=== PATIENT | female | born 1950 ===

== ENCOUNTER 2017-01-03 20:28 | Inpatient (IN) | payer MEDICARE, OTHER ==
[2017-01-03 20:29] VITALS: BMI 33.6
[2017-01-03] MEDS ORDERED: Sodium Chloride 0.9% 1,000 ML IV STA (21:11)
[2017-01-03 21:59] LABS: BASO # 0.03 K/mm3 (0.0-2.0); BASO % 0.2 % (0.0-3.0); EOS # 0.1 (0.0-0.7); EOS % 1.1 % (1.5-5.0); GRAN # 9.86 (1.4-6.5); GRAN % 78.8 % (50.0-68.0); HEMOGLOBIN 13.2 gm/dL (12.0-16.0); LYMPH # 1.4 (1.2-3.4); LYMPH % 11.4 % (22.0-35.0); MEAN CELL VOLUME 86.5 fL (80.0-105.0); MEAN CORPUSCULAR HEMOGLOBIN 28.7 pg (25.0-35.0); MEAN CORPUSCULAR HGB CONC 33.2 g/dl (31.0-37.0); MEAN PLATELET VOLUME 10.6 fl (7.0-11.0); MONO # 1.1 (0.1-0.6); MONO % 8.5 % (1.0-6.0); PLATELET COUNT 216 10^3/uL (120.0-450.0); RED CELL DISTRIBUTION WIDTH 14.3 % (11.5-14.5); WHITE BLOOD COUNT 12.5 10^3/ul (4.5-11.0)
[2017-01-03 22:05] LABS: ALB/GLOB RATIO 1.2 (1.1-1.8); ALBUMIN 4.3 g/dL (3.0-4.8); ALT/SGPT 106 U/L (7-56); AST/SGOT 105 U/L (15-39); BLOOD UREA NITROGEN 22 mg/dL (7-21); CALCIUM 9.2 mg/dL (8.4-10.5); GFR AFRICAN-AMERICAN > 60; GFR NON-AFRICAN AMERICAN > 60
--- NOTE | 2017-01-03 22:32 | ED PDOC ---
Arrival/HPI - General Chief Complaint: Back Pain Time Seen by Provider: 01/03/17 20:57 Historian: Patient - History of Present Illness Narrative History of Present Illness (Text): 01/03/17 22:30 A 66 year old female presents to the emergency department complaining of left flank pain radiating to groin. Patient reports nausea and vomiting but denies any dysuria, fever, chills or any other complaints at this time. Symptom Onset: Sudden Symptom Course: Unchanged Activities at Onset: Rest Context: Home Past Medical History - Provider Review Nursing Documentation Reviewed: Yes - Infectious Disease Hx of Infectious Diseases: None - Reproductive Menopause: No - Renal Hx Kidney Stones: Yes - Psychiatric Hx Depression: No Hx Emotional Abuse: No Hx Physical Abuse: No Hx Substance Use: No - Anesthesia Hx Anesthesia: No Hx Anesthesia Reactions: No Hx Malignant Hyperthermia: No - Suicidal Assessment Feels Threatened In Home Enviroment: No Family/Social History - Physician Review Nursing Documentation Reviewed: Yes Family/Social History: No Known Family HX Smoking Status: Never Smoked Hx Alcohol Use: No Hx Substance Use: No Hx Substance Use Treatment: No Allergies/Home Meds Allergies/Adverse Reactions: Allergies No Known Allergies Allergy (Verified 02/09/12 13:02) Home Medications: Home Meds Medication Instructions Recorded Confirmed No Known Home Med 02/09/12 01/03/17 Review of Systems - Physician Review All systems were reviewed & negative as marked: Yes - Review of Systems Constitutional: absent: Fevers, Other (chills) Gastrointestinal: Nausea, Vomiting Genitourinary Female: absent: Dysuria Musculoskeletal: Other (L flank pain radiating to groin) Physical Exam Vital Signs Reviewed: Yes Vital Signs Temp Pulse Resp BP Pulse Ox 01/03/17 21:18 98.2 F 81 17 159/94 H 100 Temperature: Afebrile Blood Pressure: Hypertensive Pulse: Regular Respiratory Rate: Normal Appearance: Positive for: Well-Appearing, Non-Toxic, Comfortable Pain Distress: None Mental Status: Positive for: Alert and Oriented X 3 - Systems Exam Head: Present: Atraumatic, Normocephalic Pupils: Present: PERRL Extroacular Muscles: Present: EOMI Conjunctiva: Present: Normal Mouth: Present: Moist Mucous Membranes Neck: Present: Normal Range of Motion Respiratory/Chest: Present: Clear to Auscultation, Good Air Exchange. No: Respiratory Distress, Accessory Muscle Use Cardiovascular: Present: Regular Rate and Rhythm, Normal S1, S2. No: Murmurs Abdomen: Present: Normal Bowel Sounds. No: Tenderness, Distention, Peritoneal Signs Back: Present: Normal Inspection Upper Extremity: Present: Normal Inspection. No: Cyanosis, Edema Lower Extremity: Present: Normal Inspection. No: Edema Neurological: Present: GCS=15, CN II-XII Intact, Speech Normal Skin: Present: Warm, Dry, Normal Color. No: Rashes Psychiatric: Present: Alert, Oriented x 3, Normal Insight, Normal Concentration Medical Decision Making ED Course and Treatment: 01/03/17 22:28 Impression: A 66 year old female with left flank pain radiating to groin. Plan: -- CT abd/pelvis -- labs -- Urinalysis -- Toradol, Zofran, IV fluids -- Reassess and disposition Prior Visits: Notes and results from previous visits were reviewed. Patient was last seen in the emergency department on 02/09/12 s/p trip and fall for evaluation of left ankle pain. Progress Notes:juliocesar e d/w dr dennis covering dr glass will admit for renal colic medical technologist chemistry notified CT Abdomen and Pelvis Without Intravenous Contrast IMPRESSION: There is severe hydronephrosis hydroureter of the left collecting system secondary to a partially obstructing stone located in the left mid-distal ureter measuring 8 x 3 mm. Fatty infiltration of liver seen. Cholelithiasis without evidence of cholecystitis. There is a nodule off the left of midline upper abdomen near lesser curvature 2.1 cm. The etiology and clinical significance of this finding is uncertain. Underlying neoplasm or metastatic disease cannot be excluded. Consider followup or further assessment to ensure stability. Dictated and Authenticated by: Darius Charles MD 01/03/2017 10:24 PM Eastern Time ([place] & [place]) 01/04/17 01:09 - Lab Interpretations Lab Results: 01/03/17 21:40 01/03/17 21:40 Lab Results 01/03/17 21:40: Sodium 139, Potassium 4.2, Chloride 102, Carbon Dioxide 26, Anion Gap 15, BUN 22 H, Creatinine 0.8, Est GFR ( Amer) > 60, Est GFR ( Non-Af Amer) > 60, Random Glucose 96, Calcium 9.2, Total Bilirubin 0.6, AST 105 H, ALT 106 H, Alkaline Phosphatase 86, Total Protein 8.0, Albumin 4.3, Globulin 3.7, Albumin/Globulin Ratio 1.2 01/03/17 21:40: WBC 12.5 H, RBC 4.60, Hgb 13.2, Hct 39.8, MCV 86.5, MCH 28.7, MCHC 33.2, RDW 14.3, Plt Count 216, MPV 10.6, Gran % 78.8 H, Lymph % (Auto) 11.4 L, [place] % (Auto) 8.5 H, Eos % (Auto) 1.1 L, Baso % (Auto) 0.2, Gran # 9.86 H, Lymph # 1.4, [place] # 1.1 H, Eos # 0.1, Baso # 0.03 I have reviewed the lab results: Yes - RAD Interpretation Radiology Orders: 01/03/17 21:11 ABD & PELVIS W/O PO OR IV CONT [CT] Stat - Medication Orders Current Medication Orders: Sodium Chloride (Sodium Chloride 0.9%) 1,000 mls @ 100 mls/hr IV .Q10H STA Stop: 01/04/17 07:10 Last Admin: 01/03/17 21:43 Dose: 100 mls/hr Cefepime HCl (Maxipime 1gm) 1 gm in 100 mls @ 100 mls/hr IVPB Q12 JOSÉ MIGUEL PRN Reason: Protocol Last Admin: 01/04/17 00:33 Dose: 100 mls/hr Sodium Chloride (Sodium Chloride 0.9%) 1,000 mls @ 100 mls/hr IV .Q10H JOSÉ MIGUEL Stop: 01/04/17 17:29 Morphine Sulfate (Morphine) 2 mg IM Q4H PRN PRN Reason: Pain, severe (8-10) Ondansetron HCl (Zofran Inj) 4 mg IVP Q4H PRN PRN Reason: Nausea/Vomiting Pantoprazole Sodium (Protonix Inj) 40 mg IVP DAILY JOSÉ MIGUEL Tamsulosin HCl (Flomax) 0.4 mg PO DAILY JOSÉ MIGUEL Discontinued Medications Ketorolac Tromethamine (Toradol) 15 mg IVP STAT STA Stop: 01/03/17 21:16 Last Admin: 01/03/17 21:42 Dose: 15 mg Morphine Sulfate (Morphine) 2 mg IVP STAT STA Stop: 01/03/17 23:33 Last Admin: 01/04/17 00:06 Dose: Not Given Non-Admin Reason: Patient Refused Ondansetron HCl (Zofran Inj) 4 mg IVP STAT STA Stop: 01/03/17 21:12 Last Admin: 01/03/17 21:42 Dose: 4 mg - Scribe Statement The provider has reviewed the documentation as recorded by the Makenna Stoner Provider Scribe Attestation: All medical record entries made by the Makenna were at my direction and personally dictated by me. I have reviewed the chart and agree that the record accurately reflects my personal performance of the history, physical exam, medical decision making, and the department course for this patient. I have also personally directed, reviewed, and agree with the discharge instructions and disposition. Disposition/Present on Arrival - Present on Arrival Any Indicators Present on Arrival: No History of DVT/PE: No History of Uncontrolled Diabetes: No Urinary Catheter: No History of Decub. Ulcer: No History Surgical Site Infection Following: None - Disposition Have Diagnosis and Disposition been Completed?: Yes Diagnosis: Renal colic on left side Disposition: HOSPITALIZED Disposition Time: 23:00 Condition: FAIR
[2017-01-03] MEDS ORDERED: Morphine 2 mg/ml ISec IVP STA (23:32)
[2017-01-03] MEDS ORDERED: Morphine 2 mg/ml ISec IM PRN (23:58)
[2017-01-04] MEDS: Cefepime 1gm in NS 100ml 1 GM/100 ML BAG IVPB SCH ×3 (00:33→21:14)
[2017-01-04 01:53] LABS: URINE BILIRUBIN NEGATIVE (NEGATIVE); URINE BLOOD MODERATE (NEGATIVE); URINE COLOR YELLOW (YELLOW); URINE GLUCOSE (UA) NEGATIVE (NEGATIVE); URINE LEUKOCYTE ESTERASE MODERATE Leu/uL (NEGATIVE); URINE NITRATE NEGATIVE (NEGATIVE); URINE PROTEIN 30 mg/dL (<30 mg/dL); URINE UROBILINOGEN 0.2 E.U./dL (<1 E.U./dL)
[2017-01-04 01:54] LABS: URINE APPEARANCE TURBID (CLEAR)
[2017-01-04 01:59] LABS: URINE RBC 0 - 2 /hpf (0-2); URINE WBC TNTC /hpf (0-6)
--- NOTE | 2017-01-04 02:52 | CP.PCM.HP ---
<BryanRik champagne - Last Filed: 01/04/17 07:04> History of Present Illness - History of Present Illness History of Present Illness: Patient is a 66 year old female with a PMHx of HTN and nephrolithiasis who presented to the ED complaining of left flank plan. Patient stated that early Friday afternoon (01/03/17) she began to have flank pain after drinking water. Patient described the pain as 10/10, sharp, and radiating to the groin. She states is is similar to the pain she had when she had kidney stones late last year. Patient states she had a surgery at [facility] to remove the stones with relief. She was told all the stones were not removed and that she would have to return. She couldn't return due to insurance and financial issue. Her flank pain has not bothered her since then, until now. She complains of urinary frequency for the past 3 days. ROS Denies: change in diet, or drinking habits, starting new medications, headache, dizziness, changes in vision, Chest Pain, SOB, dysuria, hematuria, changes in bowel habits. Complains Of: Nausea, Vomiting (Once in ED and non-bloody), left flank pain, suprapubic pain. Increased Urinary frequency x 3 days PMD: None PMHx: Nephrolithiasis, HTN PSHx: Right Total Knee Replacement (20 years ago). Kidney Stone removal surgery in 2016 (Patient does not know details) Allergies - Unknown Antibiotic that causes pruritis. Social - 1 small cup of coffee a day. Denies Tobacco, Alcohol, and illicit Drug use. Hospitalizations - [facility] for Kidney Stone removal ( 2015) Present on Admission - Present on Admission Any Indicators Present on Admission: No Review of Systems - Review of Systems All systems: reviewed and no additional remarkable complaints except Past Patient History - Infectious Disease Hx of Infectious Diseases: None - Past Social History Smoking Status: Never Smoked - RENAL Hx Kidney Stones: Yes - MUSCULOSKELETAL/RHEUMATOLOGICAL Hx Falls: Yes (Fell down stairs) - PSYCHIATRIC Hx Depression: No Hx Emotional Abuse: No Hx Physical Abuse: No - SURGICAL HISTORY Hx Surgeries: Yes Hx Orthopedic Surgery: Yes (Femur fx with repair, total knee replacement) - ANESTHESIA Hx Anesthesia: No Hx Anesthesia Reactions: No Hx Malignant Hyperthermia: No Meds Allergies/Adverse Reactions: Allergies Allergy/AdvReac Type Severity Reaction Status Date / Time No Known Allergies Allergy Verified 02/09/12 13:02 Physical Exam - Constitutional Appears: Well, Non-toxic, No Acute Distress - Head Exam Head Exam: ATRAUMATIC, NORMAL INSPECTION, NORMOCEPHALIC - Eye Exam Eye Exam: EOMI - ENT Exam ENT Exam: Mucous Membranes Moist - Neck Exam Neck exam: Negative for: Lymphadenopathy - Respiratory Exam Respiratory Exam: Clear to Auscultation Bilateral, NORMAL BREATHING PATTERN. absent: Chest Wall Tenderness, Rales, Rhonchi, Wheezes, Respiratory Distress, Stridor - Cardiovascular Exam Cardiovascular Exam: RRR, +S1, +S2 - GI/Abdominal Exam GI & Abdominal Exam: Normal Bowel Sounds, Soft, Tenderness. absent: Organomegaly Additional comments: Suprapubic tenderness - Extremities Exam Extremities exam: Negative for: pedal edema - Back Exam Back exam: CVA tenderness (L). absent: CVA tenderness (R) - Neurological Exam Neurological exam: Alert, Oriented x3 - Psychiatric Exam Psychiatric exam: Normal Affect, Normal Mood - Skin Skin Exam: Dry, Intact, Normal Color, Warm Additional comments: Birthmark on lateral portion of right hand. Results - Vital Signs Recent Vital Signs: Last Vital Signs Temp 102.9 F H 01/04/17 01:46 Pulse 103 H 01/04/17 01:46 Resp 16 01/04/17 01:46 BP 157/58 H 01/04/17 01:46 Pulse Ox 97 01/04/17 01:00 - Labs Result Diagrams: 01/03/17 21:40 01/03/17 21:40 Labs: Laboratory Results - last 24 hr 01/04/17 01:30 Urine Color Yellow Urine Appearance Turbid Urine pH 6.0 Ur Specific [place] 1.025 Urine Protein 30 H Urine Glucose (UA) Negative Urine Ketones Negative Urine Blood Moderate H Urine Nitrate Negative Urine Bilirubin Negative Urine Urobilinogen 0.2 Ur Leukocyte Esterase Moderate H Urine RBC 0 - 2 Urine WBC Tntc Ur Epithelial Cells None Assessment & Plan - Assessment and Plan (Free Text) Assessment: 66 year old female who presented with left flank plan that radiates to groin. CT Abd/Pelvis showed severe hydronephrosis hyrdouretuer of the left collecting system 2/2 to a partially obstructing stone located in the left mid-distal ureter measuring 8x3mm. WBC was 12.5. UA showed moderate Leuk Es and Protein. She was started on Cefepime. Urine blood was elevated at 30. Plan: 1. Nephrolithiasis -Morphine 2 Q4. Received Toradol in ED -Tamsulosin -CT Abd/Pelvis pending official read -NPO -Strict Is and Os -Q4 Vital Signs -CBC/CMP -Fluids -Strain for calculi 2. UTI w/ Leukocytosis (12.5) likely 2/2 to ureter obstruction -Blood and Urine Cultures -Cefepime. -Procal GI/DVT Proph -Protnix/SCDs Disp: CT Abd/Pelvis also showed nodule off the left midline upper abdomen near the lesser curvature measuring 2.1cm. Etiology and clinical significance is uncertain. Underlying neoplasm or metastatic disease cannot be ruled out. Patient should follow up this finding on outpatient basis. CT also showed fatty infiltration of liver and cholelithiasis w/o evidence of cholecystitis. Case reviewed and discussed with Attending Rik Zuniga PGY-1 - Date & Time Date: 01/04/17 Time: 00:00 <Amarjit Iglesias - Last Filed: 01/04/17 11:53> Results - Vital Signs Recent Vital Signs: Last Vital Signs Temp 99.9 F H 01/04/17 08:14 Pulse 98 H 01/04/17 08:14 Resp 20 01/04/17 08:14 BP 130/70 01/04/17 08:14 Pulse Ox 97 01/04/17 08:14 - Labs Result Diagrams: 01/04/17 06:00 01/04/17 06:00 Labs: Laboratory Results - last 24 hr 01/04/17 01/04/17 01/04/17 01:30 06:00 06:00 WBC 15.9 H D RBC 4.30 Hgb 11.9 L Hct 37.4 MCV 87.0 MCH 27.7 MCHC 31.8 RDW 14.6 H Plt Count 192 MPV 10.8 Neutrophils % (Manual) 92 H Band Neutrophils % 4 H Lymphocytes % (Manual) 2 L Monocytes % (Manual) 2 Platelet Evaluation Normal Sodium 139 Potassium 3.6 Chloride 102 Carbon Dioxide 26 Anion Gap 15 BUN 21 Creatinine 0.9 Est GFR ( Amer) > 60 Est GFR (Non-Af Amer) > 60 Random Glucose 103 Calcium 9.0 Total Bilirubin 0.9 AST 72 H ALT 84 H Alkaline Phosphatase 67 Total Protein 6.9 Albumin 3.7 Globulin 3.2 Albumin/Globulin Ratio 1.2 Urine Color Yellow Urine Appearance Turbid Urine pH 6.0 Ur Specific [place] 1.025 Urine Protein 30 H Urine Glucose (UA) Negative Urine Ketones Negative Urine Blood Moderate H Urine Nitrate Negative Urine Bilirubin Negative Urine Urobilinogen 0.2 Ur Leukocyte Esterase Moderate H Urine RBC 0 - 2 Urine WBC Tntc Ur Epithelial Cells None Assessment & Plan - Assessment and Plan (Free Text) Plan: discussed at length w/ resident went over labs iv abs and examined patient will consult id for worsening wbcs on iv abs rechecking labs discussed w/ jestevan
[2017-01-04 07:11] LABS: HEMOGLOBIN 11.9 gm/dL (12.0-16.0); MEAN CORPUSCULAR HEMOGLOBIN 27.7 pg (25.0-35.0); MEAN CORPUSCULAR HGB CONC 31.8 g/dl (31.0-37.0); MEAN PLATELET VOLUME 10.8 fl (7.0-11.0); PLATELET COUNT 192 10^3/uL (120.0-450.0); RED CELL DISTRIBUTION WIDTH 14.6 % (11.5-14.5); WHITE BLOOD COUNT 15.9 10^3/ul (4.5-11.0)
[2017-01-04 07:12] LABS: ALB/GLOB RATIO 1.2 (1.1-1.8); ALBUMIN 3.7 g/dL (3.0-4.8); ALT/SGPT 84 U/L (7-56); AST/SGOT 72 U/L (15-39); BLOOD UREA NITROGEN 21 mg/dL (7-21); GFR AFRICAN-AMERICAN > 60; GFR NON-AFRICAN AMERICAN > 60
[2017-01-04] MEDS ORDERED: Sodium Chloride 0.9% 1,000 ML IV SCH (07:30)
[2017-01-04 08:05] LABS: BAND 4 % (0-2); LYMPHOCYTE 2 % (22.0-35.0); MONOCYTE 2 % (1.0-6.0); NEUTROPHIL 92 % (50.0-70.0); PLATELET ESTIMATE NORMAL (NORMAL)
--- NOTE | 2017-01-04 12:00 | CT ---
PROCEDURE: CT Abdomen and Pelvis without intravenous contrast HISTORY: left flank pain COMPARISON: Abdomen ultrasound 04/21/2014. TECHNIQUE: L CT of the abdomen pelvis was performed without oral or intravenous contrast as per referring physician request. There is no prior comparison available. Contrast Dose: None Radiation dose: Total exam DLP = 1102 mGy-cm. This CT exam was performed using one or more of the following dose reduction techniques: Automated exposure control, adjustment of the mA and/or kV according to patient size, and/or use of iterative reconstruction technique. FINDINGS: LOWER THORAX: Unremarkable. LIVER: A few calcified granulomata are identified at superior portion liver laterally. No definite suspicious lesion or ductal dilatation. However, there is a 2.1 x 1.9 cm lesion at the upper gastrohepatic ligament of uncertain origin. This may represent an isolated, enlarged lymph node. GALLBLADDER AND BILE DUCTS: Gallbladder is mildly distended with cholelithiasis identified at the dependent portion as demonstrated prior abdomen ultrasound on 04/21/2014 previously. PANCREAS: Unremarkable. No gross lesion or ductal dilatation. SPLEEN: Unremarkable. ADRENALS: Unremarkable. No mass. KIDNEYS AND URETERS: There is moderate left hydronephrosis and left hydroureter caused by a irregular "Zen stone" shaped calculus 1.3 cm greatest dimension lodged at the distal left ureter at the S2 sacral level. Mild perinephric and periureteral reaction is appreciate without fluid collection. A punctate nonobstructing intrarenal calculus is identified at the mid to lower pole left kidney with none on the right. Urinary bladder is mildly distended and otherwise appears unremarkable. VASCULATURE: Unremarkable. No aortic aneurysm. BOWEL: Unremarkable. No obstruction. No gross mural thickening. APPENDIX: Unremarkable. Normal appendix. PERITONEUM: Unremarkable. No free fluid. No free air. LYMPH NODES: Unremarkable. No enlarged lymph nodes. BLADDER: Unremarkable. REPRODUCTIVE: Unremarkable. BONES: Benign hemangioma L4 vertebral body. Multilevel thoracolumbar spondylosis is appreciated. OTHER FINDINGS: None. IMPRESSION: 1. 1.3 cm irregular calculus obstructed distal left ureter at the S2 level causing mild periureteral and perirenal reaction but no fluid collection. There is moderate hydronephrosis. A nonobstructing intrarenal calculus identified at the mid to lower pole left kidney. 2. Unremarkable appearing right kidney. 3. 2 x 1 cm nodule or enlarged lymph nodes seen the upper gastrohepatic ligament of uncertain origin. Consider follow-up abdomen pelvis CT with contrast. 4. Cholelithiasis.
--- NOTE | 2017-01-04 12:43 | CP.PCM.CON ---
History of Present Illness - History of Present Illness History of Present Illness: General Surgery - Dr. Thao 66F w/ hx HTN, Nephrolithiasis, who presented to ED w/ L flank pain and was found to have a partially obstructing stone with hydronephrosis. CT also showed an incidental finding of a 2.1cm nodule along the lesser curvature of the stomach - mass vs. Lymph node. Surgery was consulted for this. Pt currently complaints of L flank, groin and suprapubic pain. She has been having fevers, was nauseous and vomited 1x last night in the ED. Pt. states that she often experiences stomach pains but has never had it worked up. She admits to episodic diarrhea, denies any constipation, chills, chest pain/SOB. PMH: HTN, Nephrolithiasis PSH: R total knee NKDA Family hx - brother had prostate cancer, otherwise pt. denies any significant family hx Review of Systems - Review of Systems All systems: reviewed and no additional remarkable complaints except (as per HPI ) Past Patient History - Infectious Disease Hx of Infectious Diseases: None - Past Social History Smoking Status: Never Smoked - RENAL Hx Kidney Stones: Yes - MUSCULOSKELETAL/RHEUMATOLOGICAL Hx Falls: Yes (Fell down stairs) - PSYCHIATRIC Hx Depression: No Hx Emotional Abuse: No Hx Physical Abuse: No - SURGICAL HISTORY Hx Surgeries: Yes Hx Orthopedic Surgery: Yes (Femur fx with repair, total knee replacement) - ANESTHESIA Hx Anesthesia: No Hx Anesthesia Reactions: No Hx Malignant Hyperthermia: No Meds Allergies/Adverse Reactions: Allergies Allergy/AdvReac Type Severity Reaction Status Date / Time No Known Allergies Allergy Verified 02/09/12 13:02 - Medications Medications: Current Medications Acetaminophen (Tylenol 325mg Tab) 650 mg PO Q4H PRN PRN Reason: Fever >100.4 F Last Admin: 01/04/17 02:48 Dose: 650 mg Cefepime HCl (Maxipime 1gm) 1 gm in 100 mls @ 100 mls/hr IVPB Q12 JOSÉ MIGUEL PRN Reason: Protocol Last Admin: 01/04/17 09:26 Dose: 100 mls/hr Sodium Chloride (Sodium Chloride 0.9%) 1,000 mls @ 100 mls/hr IV .Q10H JOSÉ MIGUEL Stop: 01/04/17 17:29 Last Admin: 01/04/17 09:28 Dose: 100 mls/hr Morphine Sulfate (Morphine) 2 mg IVP Q4H PRN PRN Reason: Pain, severe (8-10) Ondansetron HCl (Zofran Inj) 4 mg IVP Q4H PRN PRN Reason: Nausea/Vomiting Last Admin: 01/04/17 09:40 Dose: 4 mg Pantoprazole Sodium (Protonix Inj) 40 mg IVP DAILY [facility] Last Admin: 01/04/17 09:27 Dose: 40 mg Tamsulosin HCl (Flomax) 0.4 mg PO DAILY [facility] Last Admin: 01/04/17 09:27 Dose: 0.4 mg Physical Exam - Constitutional Appears: Well, No Acute Distress - Head Exam Head Exam: ATRAUMATIC, NORMAL INSPECTION, NORMOCEPHALIC - Eye Exam Eye Exam: EOMI, Normal appearance - ENT Exam ENT Exam: Mucous Membranes Moist - Respiratory Exam Respiratory Exam: NORMAL BREATHING PATTERN. absent: Respiratory Distress - Cardiovascular Exam Cardiovascular Exam: REGULAR RHYTHM - GI/Abdominal Exam GI & Abdominal Exam: Soft. absent: Distended, Firm, Guarding, Mass, Organomegaly, Rebound, Rigid, Tenderness - Neurological Exam Neurological exam: Alert, Oriented x3 - Psychiatric Exam Psychiatric exam: Normal Affect, Normal Mood - Skin Skin Exam: Dry, Intact Results - Vital Signs Recent Vital Signs: Last Vital Signs Temp 99.9 F H 01/04/17 08:14 Pulse 98 H 01/04/17 08:14 Resp 20 01/04/17 08:14 BP 130/70 01/04/17 08:14 Pulse Ox 97 01/04/17 08:14 - Labs Result Diagrams: 01/04/17 06:00 01/04/17 06:00 Labs: Laboratory Results - last 24 hr 01/04/17 01/04/17 01/04/17 01:30 06:00 06:00 WBC 15.9 H D RBC 4.30 Hgb 11.9 L Hct 37.4 MCV 87.0 MCH 27.7 MCHC 31.8 RDW 14.6 H Plt Count 192 MPV 10.8 Neutrophils % (Manual) 92 H Band Neutrophils % 4 H Lymphocytes % (Manual) 2 L Monocytes % (Manual) 2 Platelet Evaluation Normal Sodium Potassium Chloride Carbon Dioxide Anion Gap BUN Creatinine Est GFR ( Amer) Est GFR (Non-Af Amer) Random Glucose Calcium Total Bilirubin AST ALT Alkaline Phosphatase Total Protein Albumin Globulin Albumin/Globulin Ratio Procalcitonin 10.20 H Urine Color Yellow Urine Appearance Turbid Urine pH 6.0 Ur Specific [place] 1.025 Urine Protein 30 H Urine Glucose (UA) Negative Urine Ketones Negative Urine Blood Moderate H Urine Nitrate Negative Urine Bilirubin Negative Urine Urobilinogen 0.2 Ur Leukocyte Esterase Moderate H Urine RBC 0 - 2 Urine WBC Tntc Ur Epithelial Cells None 01/04/17 06:00 WBC RBC Hgb Hct MCV MCH MCHC RDW Plt Count MPV Neutrophils % (Manual) Band Neutrophils % Lymphocytes % (Manual) Monocytes % (Manual) Platelet Evaluation Sodium 139 Potassium 3.6 Chloride 102 Carbon Dioxide 26 Anion Gap 15 BUN 21 Creatinine 0.9 Est GFR ( Amer) > 60 Est GFR (Non-Af Amer) > 60 Random Glucose 103 Calcium 9.0 Total Bilirubin 0.9 AST 72 H ALT 84 H Alkaline Phosphatase 67 Total Protein 6.9 Albumin 3.7 Globulin 3.2 Albumin/Globulin Ratio 1.2 Procalcitonin Urine Color Urine Appearance Urine pH Ur Specific [place] Urine Protein Urine Glucose (UA) Urine Ketones Urine Blood Urine Nitrate Urine Bilirubin Urine Urobilinogen Ur Leukocyte Esterase Urine RBC Urine WBC Ur Epithelial Cells Assessment & Plan - Assessment and Plan (Free Text) Assessment: 66 yo F w/ L nephrolithiasis and hydronephrosis, incidentally found to have ~ 2cm nodule along lesser curvature of the stomach -Care as per medical team for the primary issue -Reccommend consultations for GI and poss. IR for biopsy of the nodule -Pending biopsy results will determine if any surgical intervention warranted -Will follow w/ you ASHLEY Tan PGY3
[2017-01-04] MEDS: Sodium Chloride 0.9% 1,000 ML IV SCH (23:30)
[2017-01-05 06:59] LABS: ALBUMIN 3.1 g/dL (3.0-4.8); ALT/SGPT 61 U/L (7-56); AST/SGOT 50 U/L (15-39); BLOOD UREA NITROGEN 14 mg/dL (7-21); CALCIUM 8.4 mg/dL (8.4-10.5); GFR AFRICAN-AMERICAN > 60; GFR NON-AFRICAN AMERICAN > 60
[2017-01-05 07:34] LABS: BASO # 0.01 K/mm3 (0.0-2.0); BASO % 0.1 % (0.0-3.0); EOS % 0.1 % (1.5-5.0); GRAN # 5.91 (1.4-6.5); GRAN % 76.2 % (50.0-68.0); HEMOGLOBIN 10.4 gm/dL (12.0-16.0); LYMPH % 13.4 % (22.0-35.0); MEAN CELL VOLUME 86.5 fL (80.0-105.0); MEAN CORPUSCULAR HEMOGLOBIN 27.6 pg (25.0-35.0); MEAN CORPUSCULAR HGB CONC 31.9 g/dl (31.0-37.0); MEAN PLATELET VOLUME 10.8 fl (7.0-11.0); MONO # 0.8 (0.1-0.6); MONO % 10.2 % (1.0-6.0); PLATELET COUNT 134 10^3/uL (120.0-450.0); RBC 3.77 10^6/uL (3.5-6.1); RED CELL DISTRIBUTION WIDTH 14.8 % (11.5-14.5); WHITE BLOOD COUNT 7.8 10^3/ul (4.5-11.0)
[2017-01-05] MEDS: Morphine 2 mg/ml ISec IVP PRN (07:51)
[2017-01-05] MEDS ORDERED: Potassium Chloride 40 mEq/30 ml LIQ UD PO STA (08:14)
[2017-01-05] MEDS: Cefepime 1gm in NS 100ml 1 GM/100 ML BAG IVPB SCH (09:22)
--- NOTE | 2017-01-05 09:28 | CP.PCM.PN ---
Subjective - Date & Time of Evaluation Date of Evaluation: 01/05/17 Time of Evaluation: 07:10 - Subjective Subjective: Pt seen and examined at bedside. No acute events overnight. Pt did c/o fever of 102.7 but is afebrile currently. She also c/o L flank pain but states pain is well controlled at this time. Denies any chills, sob, cp, abd pain, n/v/d. Objective - Vital Signs/Intake and Output Vital Signs (last 24 hours): Temp Pulse Resp BP Pulse Ox 99.1 F 78 21 122/66 95 01/05/17 08:11 01/05/17 08:11 01/05/17 08:11 01/05/17 08:11 01/05/17 08:11 Intake and Output: 01/05/17 01/05/17 06:59 18:59 Intake Total 1900 Balance 1900 - Medications Medications: Current Medications Acetaminophen (Tylenol 325mg Tab) 650 mg PO Q4H PRN PRN Reason: Fever >100.4 F Last Admin: 01/05/17 01:29 Dose: 650 mg Cefepime HCl (Maxipime 1gm) 1 gm in 100 mls @ 100 mls/hr IVPB Q12 JOSÉ MIGUEL PRN Reason: Protocol Last Admin: 01/04/17 21:14 Dose: 100 mls/hr Sodium Chloride (Sodium Chloride 0.9%) 1,000 mls @ 100 mls/hr IV .Q10H JOSÉ MIGUEL Last Admin: 01/04/17 23:30 Dose: 100 mls/hr Morphine Sulfate (Morphine) 2 mg IVP Q4H PRN PRN Reason: Pain, severe (8-10) Last Admin: 01/05/17 07:51 Dose: 2 mg Ondansetron HCl (Zofran Inj) 4 mg IVP Q4H PRN PRN Reason: Nausea/Vomiting Last Admin: 01/05/17 01:24 Dose: 4 mg Pantoprazole Sodium (Protonix Inj) 40 mg IVP DAILY [facility] Last Admin: 01/04/17 09:27 Dose: 40 mg Tamsulosin HCl (Flomax) 0.4 mg PO DAILY [facility] Last Admin: 01/04/17 09:27 Dose: 0.4 mg - Labs Labs: 01/05/17 06:00 01/05/17 06:00 - Constitutional Appears: No Acute Distress - Head Exam Head Exam: ATRAUMATIC, NORMAL INSPECTION, NORMOCEPHALIC - Eye Exam Eye Exam: EOMI, Normal appearance, PERRL Pupil Exam: NORMAL ACCOMODATION, PERRL - ENT Exam ENT Exam: Mucous Membranes Moist, Normal Exam - Neck Exam Neck Exam: Full ROM, Normal Inspection. absent: Lymphadenopathy - Respiratory Exam Respiratory Exam: Clear to Ausculation Bilateral, NORMAL BREATHING PATTERN. absent: Wheezes - Cardiovascular Exam Cardiovascular Exam: REGULAR RHYTHM, RRR, +S1, +S2. absent: Murmur - GI/Abdominal Exam GI & Abdominal Exam: Soft, Normal Bowel Sounds. absent: Distended, Tenderness - Extremities Exam Extremities Exam: Full ROM. absent: Calf Tenderness - Back Exam Back Exam: NORMAL INSPECTION - Neurological Exam Neurological Exam: Alert, Awake, CN II-XII Intact, Oriented x3 - Psychiatric Exam Psychiatric exam: Normal Affect, Normal Mood - Skin Skin Exam: Dry, Intact, Normal Color, Warm Assessment and Plan - Assessment and Plan (Free Text) Assessment: 66 year old female with pmh of Nephrolithiasis, and HTN who presented with left flank plan that radiates to groin found to have a L 1.3cm obstructing distal ureter stone with mod hydronephrosis. 1. Nephrolithiasis - f/u urology recs -pain control Morphine 2 Q4 - Tylenol for fevers -Tamsulosin daily -Strict Is and Os -Q4 Vital Signs -CBC/CMP -Fluids NS @ 100 -Strain for calculi 2. UTI likely 2/2 to ureter obstruction - wbc dec to 7.8 this am -Blood and Urine Cultures -IV abx - Cefepime - F/u ID recs -Procal 3. Lesser curvature nodule measuring 2.1cm - Surgery consulted - recommended GI consult and IR biopsy - F/u IR consult 4. GI/DVT Proph -Protnix/SCDs . Case reviewed and discussed with Attending
[2017-01-05] MEDS: Sodium Chloride 0.9% 1,000 ML IV SCH ×2 (11:32→19:50)
--- NOTE | 2017-01-05 14:05 | PN ---
SUBJECTIVE: I saw her sitting in bed, in a room. She is uncomfortable. She had a fever last night of a 101. She is still on IV antibiotics. She is here for nephrolithiasis and UTI. She has been seen by surgery, infectious disease, and interventional radiologist for a lesion and urology, I do not see have any notes. PHYSICAL EXAMINATION VITAL SIGNS: 99.1 temperature, she had a 102,7 last night, 78 pulse, 122/66 blood pressure, 21 respiratory rate and 95% O2 saturation room air. HEENT: Head is atraumatic and normocephalic. HEART: Regular rate. LUNGS: Decreased breath sounds, but clear. ABDOMEN: Soft, morbidly obese, and mild tender. Back pain. EXTREMITIES: No edema. MEDICATIONS: She has on Flomax, Maxipime IV, morphine for pain, Protonix, IV fluids at 100, Tylenol and Zofran. LABORATORY DATA: She has a 7.8 white count the best has been 15, so finally came down, hemoglobin is 10.4, hematocrit is 32.6 and platelets are 134. She has a 137 sodium, potassium is 3.2, I am going replace potassium, BUN of 14, and creatinine of 0.8. GFR is greater than 60, sugars of 101, calcium is 8.4, total bilirubin is 0.8, AST is 50, ALT is 61, alkaline phosphates is 76, total protein is 6.1, albumin is 3.1, and procalcitonin was high as 10.2 very very high, Urine was moderate and too numerous to count white count. IMPRESSION AND PLAN: Multiple issues. Intravenous antibiotics and intravenous fluids. Check laboratories tomorrow. Encouragement with taking lots of the fluids. Amarjit Iglesias DO MTDD
[2017-01-05] MEDS: Meropenem 1g/NS 100mL IVPB 1 GM/100 ML PIGGYBACK IVPB SCH ×2 (14:15→21:47)
--- NOTE | 2017-01-05 15:35 | CON ---
DATE: 01/05/2017 SUBJECTIVE: The patient is seen earlier today in room 370, bed 1. CHIEF COMPLAINT: Abdominal pain x1 to 2 days duration. HISTORY OF PRESENT ILLNESS: This is a 66-year-old female with past medical history of hypertension, past medical history of nephrolithiasis and kidney stone removal in May of 2016, who is admitted with left flank pain, abdominal pain radiating down the left leg, groin, and she denies any fevers, any chills. There is no shortness of breath, chest pain. There is frequency and dysuria and no headaches, blurred vision. PAST MEDICAL HISTORY: Significant for hypertension, nephrolithiasis and kidney stones. PAST SURGICAL HISTORY: Significant for right knee replacement 20 years ago, kidney stone extraction in May of 2016. ALLERGIES: The patient had no known allergies. MEDICATIONS: At home includes, the patient had no medications at home. No recent travel. She is from [place]. PHYSICAL EXAMINATION GENERAL: She is in bed. Somewhat uncomfortable with a temperature of 102.7, heart rate of 100, respiratory rate of 21, blood pressure is 130/60. HEENT: Unremarkable. NECK: Supple.. LUNGS: Decreased breath sounds. HEART: Normal S1 and S2. ABDOMEN: Soft and nontender. There is left-sided CVA tenderness. There is minimal tenderness in her left upper quadrant. No rebound, no guarding, no masses. LABORATORY DATA: Examination reveals a white count of 12,500, hemoglobin of 13, and platelets of 216 with a 78% granulocytosis, 4% white count has improved down to 7.5. It was up to 15,000 yesterday. Chemistries reveals a BUN of 22, creatinine of 0.8 with a procalcitonin of 10. Urinalysis is noted to have too numerous to count rbc's and leukocyte esterase is positive and microbiology reveals a gram-negative judi. Urine identification ____ is pending. The blood cultures are negative and the patient had a CAT scan of the abdomen and pelvis which showed 1.3 cm calculus obstructed the left ureter and moderate hydronephrosis. ASSESSMENT AND PLAN: A 66-year-old female with past medical history of hypertension, nephrolithiasis and admitted with fever 102, heart rate of 100, respiratory 21 with a gram-negative judi in urine. Sepsis with gram-negative judi in urine as the source with a 1.3 left ureteral obstruction and hydronephrosis and we will treat the patient with meropenem, pending blood cultures which are thus far are negative and identification sensitivity of the urine, gram-negative judi in the urine, pending urology for mechanical extraction of the stone due to the size of a 13 mm greater than 10 and we will make further recommendations. Zen Parks MD
[2017-01-05] MEDS ORDERED: Propofol 10 mg/ml Inj (20 ML) ONE (17:28)
[2017-01-05] MEDS ORDERED: Succinylcholine 200 mg/10 ml Inj IV ONE (17:29)
[2017-01-05] MEDS ORDERED: Iohexol 240 (50 ml) ONE (17:32)
[2017-01-05] MEDS ORDERED: HYDROmorphone 0.5 mg/0.5 ml ISec IVP PRN (17:55)
[2017-01-05] MEDS ORDERED: Sodium Chloride 0.9% 1,000 ML IV SCH (18:00)
--- NOTE | 2017-01-06 02:45 | OP ---
PROCEDURE DATE: 01/05/2017 PREOPERATIVE DIAGNOSES: Left obstructing urethral calculus, left hydronephrosis and sepsis. PROCEDURE: Cystoscopy, insertion of left urethral stent. ATTENDING SURGEON: Dr. Watson Keene. TYPE OF ANESTHESIA: General. SPECIMEN: None. DRAINS: 6 x 24 left ureteral stent. COMPLICATIONS: None. OPERATIVE FINDINGS: After informed consent was obtained, the patient was taken to the operating room, placed in the operating room table. Anesthesia was administered. The patient was then placed in dorsal lithotomy position, prepped and draped in the usual sterile fashion. A 21-Tunisian cystoscope was placed in the patient's urethra and advanced under direct vision to bladder. A full survey inspection of the bladder was performed. There were no stones or foreign bodies noted. 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 Both urethral orifices were visualized. The right orifice appeared somewhat small. The left orifice appeared within normal limits. At this point, a Pollack catheter was introduced through the cystoscope and guided into the left urethral orifice. When it is in the orifice, contrast was gently instilled into the left ureter. There appeared to be an obstructing lesion in the upper portion of the lower ureter. The patient's CAT scan showed a 13 mm x 10 mm stone in this region. It was not radiopaque on fluoroscopy. The ureter above this point was dilated and there was moderate hydronephrosis. At this point, a sensory wire was obtained. The sensory wire was passed through the open-ended ureteral catheter and advanced up the ureter. The wire was able to be manipulated beyond the obstructing calculus and advanced up the ureter until it coiled in the upper collecting system. At this time, the open-ended catheter was removed and a 6 x 24 urethral stent was obtained. The stent was passed over the wire through the cystoscope into the left ureter. The stent was then advanced proximally under direct and fluoroscopic guidance. The stent was able to be passed beyond the obstructing stone and advanced up into the renal pelvis. When the stent was in proper position, guide wire was removed. A coil was seen in the renal pelvis on fluoroscopy, a coil was seen in the bladder on cystoscopy. At this point, the procedure was completed, the bladder was drained, the cystoscope was removed. The patient tolerated the procedure well. She was taken to the recovery room in awake and in stable condition. The patient will need to be scheduled for stent removal and ureteroscopy lithotripsy once her sepsis has completely resolved. Watson Keene MD
[2017-01-06] MEDS: Morphine 2 mg/ml ISec IVP PRN ×2 (02:56→09:57)
[2017-01-06] MEDS: Meropenem 1g/NS 100mL IVPB 1 GM/100 ML PIGGYBACK IVPB SCH ×3 (05:01→21:46)
[2017-01-06 07:41] LABS: HEMOGLOBIN 10.2 gm/dL (12.0-16.0); MEAN CELL VOLUME 86.2 fL (80.0-105.0); MEAN CORPUSCULAR HEMOGLOBIN 27.6 pg (25.0-35.0); MEAN PLATELET VOLUME 10.6 fl (7.0-11.0); RBC 3.7 10^6/uL (3.5-6.1); RED CELL DISTRIBUTION WIDTH 14.5 % (11.5-14.5); WHITE BLOOD COUNT 5.9 10^3/ul (4.5-11.0)
[2017-01-06 07:56] LABS: ALB/GLOB RATIO 1.2 (1.1-1.8); ALBUMIN 3.1 g/dL (3.0-4.8); ALT/SGPT 62 U/L (7-56); AST/SGOT 42 U/L (15-39); BLOOD UREA NITROGEN 10 mg/dL (7-21); CALCIUM 8.2 mg/dL (8.4-10.5); GFR AFRICAN-AMERICAN > 60; GFR NON-AFRICAN AMERICAN > 60
--- NOTE | 2017-01-06 09:03 | CP.PCM.PN ---
Subjective - Date & Time of Evaluation Date of Evaluation: 01/06/17 Time of Evaluation: 08:20 - Subjective Subjective: Surgery Progress Note 66 year old female patient seen and examined today at bedside. Doing well with nausea as only complaint earlier this morning, which has now resolved. Patient denies chest pain, shortness of breath, fevers, chills, vomiting, diarrhea. Objective - Vital Signs/Intake and Output Vital Signs (last 24 hours): Temp Pulse Resp BP Pulse Ox 99.2 F 80 20 127/95 H 98 01/06/17 08:00 01/06/17 08:00 01/06/17 08:00 01/06/17 08:00 01/06/17 08:00 Intake and Output: 01/06/17 01/06/17 06:59 18:59 Intake Total 2110 Output Total 600 Balance 1510 - Medications Medications: Current Medications Acetaminophen (Tylenol 325mg Tab) 650 mg PO Q4H PRN PRN Reason: Fever >100.4 F Last Admin: 01/05/17 01:29 Dose: 650 mg Meropenem 1g/NS 100mL IVPB (Meropenem 1g/Ns 100ml Ivpb) 1 gm in 100 mls @ 100 mls/hr IVPB Q8 JOSÉ MIGUEL PRN Reason: Protocol Stop: 01/14/17 14:01 Last Admin: 01/06/17 05:01 Dose: 100 mls/hr Sodium Chloride (Sodium Chloride 0.9%) 1,000 mls @ 75 mls/hr IV .[id number] [facility] Last Admin: 01/05/17 19:50 Dose: 75 mls/hr Morphine Sulfate (Morphine) 2 mg IVP Q4H PRN PRN Reason: Pain, severe (8-10) Last Admin: 01/06/17 02:56 Dose: 2 mg Ondansetron HCl (Zofran Inj) 4 mg IVP Q4H PRN PRN Reason: Nausea/Vomiting Last Admin: 01/05/17 01:24 Dose: 4 mg Ondansetron HCl (Zofran Inj) 4 mg IVP ONCE PRN PRN Reason: Nausea/Vomiting Pantoprazole Sodium (Protonix Inj) 40 mg IVP DAILY [facility] Last Admin: 01/05/17 09:21 Dose: 40 mg Tamsulosin HCl (Flomax) 0.4 mg PO DAILY [facility] Last Admin: 01/05/17 09:22 Dose: 0.4 mg - Labs Labs: 01/06/17 07:00 01/06/17 07:00 - Constitutional Appears: Well - Head Exam Head Exam: ATRAUMATIC, NORMAL INSPECTION, NORMOCEPHALIC - ENT Exam ENT Exam: Mucous Membranes Moist, Normal Exam - Respiratory Exam Respiratory Exam: Clear to Ausculation Bilateral, NORMAL BREATHING PATTERN - Cardiovascular Exam Cardiovascular Exam: REGULAR RHYTHM, RRR, +S1, +S2 - GI/Abdominal Exam GI & Abdominal Exam: Soft, Normal Bowel Sounds - Skin Skin Exam: Normal Color, Warm Assessment and Plan - Assessment and Plan (Free Text) Assessment: 66 yo F w/ L mephorlithiasis and hydronephrosis with 2 cm nodule along lesser curvature of stomach Plan: - IR on lesser curvature biopsy - No surgical intervention at this time Further recs as per Dr. Thao
--- NOTE | 2017-01-06 09:29 | RAD ---
HISTORY: surgery STAT at 17:30 today COMPARISON: No prior. FINDINGS: LUNGS: No active pulmonary disease. PLEURA: No significant pleural effusion identified, no pneumothorax apparent. CARDIOVASCULAR: No radiographic findings to suggest acute or significant cardiovascular disease. OSSEOUS STRUCTURES: No significant abnormalities. VISUALIZED UPPER ABDOMEN: Normal. OTHER FINDINGS: None. IMPRESSION: No active disease.
--- NOTE | 2017-01-06 11:12 | RAD ---
PROCEDURE: Retrograde pyelogram HISTORY: R/O STONES LT COMPARISON: TECHNIQUE: Fluoroscopy was provided in the operating room. 39 seconds of fluoro time. Four images were submitted FINDINGS: Study shows opacification of the left ureter and partial opacification of the left renal collecting system. There is placement of a wire. Procedure was performed by Dr. Keene IMPRESSION: As above
--- NOTE | 2017-01-06 15:22 | CP.PCM.PN ---
<MelchorMin Hylton - Last Filed: 01/06/17 15:05> Subjective - Date & Time of Evaluation Date of Evaluation: 01/06/17 Time of Evaluation: 08:15 - Subjective Subjective: S/e at bedside. Pt states that she had surgery yesterday, and that she tolerated it well. Pt does admit to some hematuria and burning on urination. Patient denies f/ch/dizziness/kennedy/cp/sob/n/v/d. No further complaints. Objective - Vital Signs/Intake and Output Vital Signs (last 24 hours): Temp Pulse Resp BP Pulse Ox 99.2 F 80 20 127/95 H 98 01/06/17 08:00 01/06/17 08:00 01/06/17 08:00 01/06/17 08:00 01/06/17 08:00 Intake and Output: 01/06/17 01/06/17 06:59 18:59 Intake Total 2110 520 Output Total 600 300 Balance 1510 220 - Medications Medications: Current Medications Acetaminophen (Tylenol 325mg Tab) 650 mg PO Q4H PRN PRN Reason: Fever >100.4 F Last Admin: 01/05/17 01:29 Dose: 650 mg Meropenem 1g/NS 100mL IVPB (Meropenem 1g/Ns 100ml Ivpb) 1 gm in 100 mls @ 100 mls/hr IVPB Q8 JOSÉ MIGUEL PRN Reason: Protocol Stop: 01/14/17 14:01 Last Admin: 01/06/17 14:05 Dose: 100 mls/hr Sodium Chloride (Sodium Chloride 0.9%) 1,000 mls @ 75 mls/hr IV .[id number] [facility] Last Admin: 01/05/17 19:50 Dose: 75 mls/hr Morphine Sulfate (Morphine) 2 mg IVP Q4H PRN PRN Reason: Pain, severe (8-10) Last Admin: 01/06/17 09:57 Dose: 2 mg Ondansetron HCl (Zofran Inj) 4 mg IVP Q4H PRN PRN Reason: Nausea/Vomiting Last Admin: 01/05/17 01:24 Dose: 4 mg Ondansetron HCl (Zofran Inj) 4 mg IVP ONCE PRN PRN Reason: Nausea/Vomiting Pantoprazole Sodium (Protonix Inj) 40 mg IVP DAILY [facility] Last Admin: 01/06/17 09:19 Dose: 40 mg Tamsulosin HCl (Flomax) 0.4 mg PO DAILY [facility] Last Admin: 01/06/17 09:19 Dose: 0.4 mg - Labs Labs: 01/06/17 07:00 01/06/17 07:00 - Additional Findings Additional findings: Phys Exam: VS as below Constitutional: a&o x 4, nad Head and Neck: neck supple, no jvd, trachea midline, carotid midline, no cervical/head mass Eyes: nakul, nonicteric sclera, eom intact ENT: auditory acuity grossly intact, throat not congested, no nasal deformity Cardio: rrr, no m/r/g, no carotid bruit, nml s1, s2 Pulm: no accessory muscle use, equal nml breath sounds bilaterally, ctab Abd: +Sajan's sign; +diffuse abdominal tenderness; s/nt/nd, nbs x 4 q, no palpable masses Derm: no rashes, no ulcers, no lesions Extr: no edema, no cyanosis, no calf tenderness, no lesions, no varicosities Neuro: cn II-XII grossly intact, ue and le 5/5 muscle strength bilaterally, no los ue, le bilaterally and core Assessment and Plan - Assessment and Plan (Free Text) Assessment: 66 year old female with pmh of Nephrolithiasis, and HTN who presented with left flank plan that radiates to groin found to have a L 1.3cm obstructing distal ureter stone with mod hydronephrosis. 1. Nephrolithiasis s/p Cystogram with Retrograde Pyelogram Current - f/u urology recs - surgery performed yesterday, 01/05/17. Will need a second surgery to remove stent at a later date. - Pain Control: Morphine 2 Q4 - Tylenol for fevers - Tamsulosin daily - Strict Is and Os - Q4 Vital Signs - Fluids NS @ 100 2. UTI likely 2/2 to ureter obstruction - WBC dec to 5.9 01/06/17 - Blood and Urine Cultures: Gram negative rods - E. Coli - Procal: 10.2 - F/u with urology regarding fistulas because both b/c and u/c are growing E. Coli - IV abx - Meropenem 3. Lesser curvature nodule measuring 2.1cm - Surgery c/s: recommend GI consult. As of 01/06/17, no surgical intervention. Will await biopsy - F/u IR consult: Scheduled for 01/07/17 4. GI/DVT Proph - Protnix/SCDs <Evans Sinha - Last Filed: 01/14/17 15:57> Objective - Vital Signs/Intake and Output Vital Signs (last 24 hours): Temp Pulse Resp BP Pulse Ox 98.4 F 73 20 140/90 97 01/14/17 06:00 01/14/17 06:00 01/14/17 06:00 01/14/17 06:00 01/14/17 06:00 Intake and Output: 01/14/17 01/14/17 06:59 18:59 Intake Total 1140 Balance 1140 - Medications Medications: Current Medications Acetaminophen (Tylenol 325mg Tab) 650 mg PO Q4H PRN PRN Reason: Fever >100.4 F Last Admin: 01/12/17 15:24 Dose: 650 mg Metronidazole (Flagyl) 500 mg in 100 mls @ 100 mls/hr IVPB Q8 [facility] PRN Reason: Protocol Last Admin: 01/14/17 13:19 Dose: 100 mls/hr Miconazole Nitrate (Monistat 7 Vaginal Cream) 0 ea VG HS [facility] Last Admin: 01/14/17 01:15 Dose: Not Given Morphine Sulfate (Morphine) 2 mg IVP Q4H PRN PRN Reason: Pain, severe (8-10) Last Admin: 01/09/17 06:17 Dose: 2 mg Ondansetron HCl (Zofran Inj) 4 mg IVP Q4H PRN PRN Reason: Nausea/Vomiting Last Admin: 01/12/17 06:30 Dose: 4 mg Oxycodone/Acetaminophen (Percocet 5/325 Mg Tab) 1 tab PO Q6H PRN PRN Reason: Pain, moderate (4-7) Stop: 01/15/17 11:38 Pantoprazole Sodium (Protonix Inj) 40 mg IVP Q12 [facility] Last Admin: 01/14/17 09:03 Dose: 40 mg Tamsulosin HCl (Flomax) 0.4 mg PO DAILY [facility] Last Admin: 01/14/17 09:03 Dose: 0.4 mg - Labs Labs: 01/14/17 13:13 01/14/17 07:00 PT 11.0 Seconds (9.9-11.8) 01/14/17 13:13 INR 1.02 (0.93-1.08) 01/14/17 13:13 APTT 27.5 Seconds (23.7-30.8) 01/14/17 13:13 Attending/Attestation - Attestation I have personally seen and examined this patient.: Yes I have fully participated in the care of the patient.: Yes I have reviewed all pertinent clinical information, including history, physical exam and plan: Yes Notes (Text): 01/14/17 15:57 Medical record note made by the resident after discussion with my direction and input after the patient was personally seen and examined by me. I have reviewed the chart and agree that the record accurately reflects by personal performance of the history, physical exam, data review, and medical decision-making, in the course for the patient. I have also personally directed the plan of care.
--- NOTE | 2017-01-06 16:07 | CP.PCM.PN ---
Subjective - Date & Time of Evaluation Date of Evaluation: 01/06/17 Time of Evaluation: 10:10 - Subjective Subjective: Comfortable in bed, not in distress, no fevers. Objective - Vital Signs/Intake and Output Vital Signs (last 24 hours): Temp Pulse Resp BP Pulse Ox 99.2 F 80 20 127/95 H 98 01/06/17 08:00 01/06/17 08:00 01/06/17 08:00 01/06/17 08:00 01/06/17 08:00 Intake and Output: 01/06/17 01/06/17 06:59 18:59 Intake Total 2110 520 Output Total 600 300 Balance 1510 220 - Medications Medications: Current Medications Acetaminophen (Tylenol 325mg Tab) 650 mg PO Q4H PRN PRN Reason: Fever >100.4 F Last Admin: 01/05/17 01:29 Dose: 650 mg Meropenem 1g/NS 100mL IVPB (Meropenem 1g/Ns 100ml Ivpb) 1 gm in 100 mls @ 100 mls/hr IVPB Q8 JOSÉ MIGUEL PRN Reason: Protocol Stop: 01/14/17 14:01 Last Admin: 01/06/17 14:05 Dose: 100 mls/hr Sodium Chloride (Sodium Chloride 0.9%) 1,000 mls @ 75 mls/hr IV .[id number] [facility] Last Admin: 01/05/17 19:50 Dose: 75 mls/hr Morphine Sulfate (Morphine) 2 mg IVP Q4H PRN PRN Reason: Pain, severe (8-10) Last Admin: 01/06/17 09:57 Dose: 2 mg Ondansetron HCl (Zofran Inj) 4 mg IVP Q4H PRN PRN Reason: Nausea/Vomiting Last Admin: 01/05/17 01:24 Dose: 4 mg Ondansetron HCl (Zofran Inj) 4 mg IVP ONCE PRN PRN Reason: Nausea/Vomiting Pantoprazole Sodium (Protonix Inj) 40 mg IVP DAILY [facility] Last Admin: 01/06/17 09:19 Dose: 40 mg Tamsulosin HCl (Flomax) 0.4 mg PO DAILY [facility] Last Admin: 01/06/17 09:19 Dose: 0.4 mg - Labs Labs: 01/06/17 07:00 01/06/17 07:00 - Constitutional Appears: Non-toxic, No Acute Distress - Head Exam Head Exam: NORMAL INSPECTION - ENT Exam ENT Exam: Mucous Membranes Moist - Neck Exam Neck Exam: absent: Meningismus - Respiratory Exam Respiratory Exam: Decreased Breath Sounds - Cardiovascular Exam Cardiovascular Exam: +S1, +S2 - GI/Abdominal Exam GI & Abdominal Exam: Soft. absent: Tenderness Assessment and Plan - Assessment and Plan (Free Text) Plan: Assessment sepsis due to gram negative bacilli bacteremia associated with left ureteral obstruction HTN history of nephrolithiasis in the past Plan Continue Merrem pending identification and sensitivities of the gram negative bacilli in the blood Will monitor clinically
--- NOTE | 2017-01-06 18:43 | CARD ---
APPROVED REPORT EKG Measurement Heart [id number] <Conclusion> Normal sinus rhythm Incomplete right bundle branch block Borderline ECG
[2017-01-06] MEDS: Sodium Chloride 0.9% 1,000 ML IV SCH (21:44)
--- NOTE | 2017-01-06 22:43 | PN ---
DATE: 01/06/2017 SUBJECTIVE: The patient is status post a stent placement for an obstructing ureteral calculus with success. Currently, she is afebrile. PHYSICAL EXAMINATION VITAL SIGNS: Temperature of 99.2, pulse of 80, blood pressure 127/95, respirations are 20. ABDOMEN: Soft, nontender, nondistended. There is no CVA tenderness. LABORATORY DATA: The patient's urine was positive for E. coli, blood cultures grew gram-negative rods. PLAN: The plan for now is to leave the stent indwelling until the patient's urosepsis has completely resolved. I would plan the length and type of antibiotics as per ID consultation. Plan would be to schedule the patient for a ureteroscopy and laser lithotripsy with a stent removal in approximately 2 to 3 weeks when okay with ID ent consultant and her sepsis has completely resolved. I will discuss this with her medical attending Dr. Jamison. Watson Keene MD
[2017-01-07] MEDS: Sodium Chloride 0.9% 1,000 ML IV SCH ×2 (05:35→14:40)
[2017-01-07] MEDS: Meropenem 1g/NS 100mL IVPB 1 GM/100 ML PIGGYBACK IVPB SCH ×3 (05:35→23:02)
[2017-01-07 08:11] LABS: INR 0.98 (0.93-1.08); PROTHROMBIN TIME 10.6 Seconds (9.9-11.8)
[2017-01-07 09:15] LABS: BASO # 0.02 K/mm3 (0.0-2.0); BASO % 0.3 % (0.0-3.0); EOS # 0.2 (0.0-0.7); EOS % 3.6 % (1.5-5.0); GRAN # 3.76 (1.4-6.5); GRAN % 58.1 % (50.0-68.0); HEMOGLOBIN 12.1 gm/dL (12.0-16.0); LYMPH # 1.6 (1.2-3.4); LYMPH % 25.3 % (22.0-35.0); MEAN CELL VOLUME 85.6 fL (80.0-105.0); MEAN CORPUSCULAR HEMOGLOBIN 27.8 pg (25.0-35.0); MEAN CORPUSCULAR HGB CONC 32.4 g/dl (31.0-37.0); MEAN PLATELET VOLUME 11.2 fl (7.0-11.0); MONO # 0.8 (0.1-0.6); MONO % 12.7 % (1.0-6.0); PLATELET COUNT 181 10^3/uL (120.0-450.0); RBC 4.36 10^6/uL (3.5-6.1); RED CELL DISTRIBUTION WIDTH 14.3 % (11.5-14.5); WHITE BLOOD COUNT 6.5 10^3/ul (4.5-11.0)
[2017-01-07 09:31] LABS: ALB/GLOB RATIO 1.2 (1.1-1.8); ALT/SGPT 84 U/L (7-56); AST/SGOT 76 U/L (15-39); BLOOD UREA NITROGEN 11 mg/dL (7-21); GFR AFRICAN-AMERICAN > 60; GFR NON-AFRICAN AMERICAN > 60
[2017-01-07] MEDS ORDERED: Potassium Chloride 20 mEq ER Tab PO ONE (11:17)
--- NOTE | 2017-01-07 14:46 | CP.PCM.PN ---
Subjective - Date & Time of Evaluation Date of Evaluation: 01/07/17 Time of Evaluation: 10:05 - Subjective Subjective: Comfortable, feels better, no nausea, no fevers overnight. Objective - Vital Signs/Intake and Output Vital Signs (last 24 hours): Temp Pulse Resp BP Pulse Ox 97.8 F 72 20 165/81 H 98 01/07/17 06:00 01/07/17 06:00 01/07/17 06:00 01/07/17 06:00 01/06/17 08:00 Intake and Output: 01/07/17 01/07/17 06:59 18:59 Intake Total 0 Output Total 200 Balance -200 - Medications Medications: Current Medications Acetaminophen (Tylenol 325mg Tab) 650 mg PO Q4H PRN PRN Reason: Fever >100.4 F Last Admin: 01/06/17 21:47 Dose: 650 mg Meropenem 1g/NS 100mL IVPB (Meropenem 1g/Ns 100ml Ivpb) 1 gm in 100 mls @ 100 mls/hr IVPB Q8 JOSÉ MIGUEL PRN Reason: Protocol Stop: 01/14/17 14:01 Last Admin: 01/07/17 05:35 Dose: 100 mls/hr Sodium Chloride (Sodium Chloride 0.9%) 1,000 mls @ 75 mls/hr IV .[id number] [facility] Last Admin: 01/07/17 05:35 Dose: 75 mls/hr Morphine Sulfate (Morphine) 2 mg IVP Q4H PRN PRN Reason: Pain, severe (8-10) Last Admin: 01/06/17 09:57 Dose: 2 mg Ondansetron HCl (Zofran Inj) 4 mg IVP Q4H PRN PRN Reason: Nausea/Vomiting Last Admin: 01/05/17 01:24 Dose: 4 mg Ondansetron HCl (Zofran Inj) 4 mg IVP ONCE PRN PRN Reason: Nausea/Vomiting Pantoprazole Sodium (Protonix Inj) 40 mg IVP DAILY [facility] Last Admin: 01/07/17 09:18 Dose: 40 mg Tamsulosin HCl (Flomax) 0.4 mg PO DAILY [facility] Last Admin: 01/06/17 09:19 Dose: 0.4 mg - Labs Labs: 01/07/17 08:30 01/07/17 08:30 PT 10.6 Seconds (9.9-11.8) 01/07/17 07:30 INR 0.98 (0.93-1.08) 01/07/17 07:30 - Constitutional Appears: Non-toxic, No Acute Distress - Head Exam Head Exam: NORMAL INSPECTION - ENT Exam ENT Exam: Mucous Membranes Moist - Neck Exam Neck Exam: absent: Meningismus - Respiratory Exam Respiratory Exam: Decreased Breath Sounds - Cardiovascular Exam Cardiovascular Exam: +S1, +S2 - GI/Abdominal Exam GI & Abdominal Exam: Soft. absent: Tenderness Assessment and Plan - Assessment and Plan (Free Text) Plan: Assessment sepsis due to ESBL-producing multidrug-resistant E. coli bacteremia associated with left ureteral obstruction and pyelonephritis S/P stent placement POD #3 HTN history of nephrolithiasis in the past Plan Continue Merrem to complete 10-14 days of therapy (day 3 today from day of procedure) Will continue to monitor clinically
--- NOTE | 2017-01-07 21:54 | CP.PCM.PN ---
Subjective - Date & Time of Evaluation Date of Evaluation: 01/07/17 Time of Evaluation: 09:00 - Subjective Subjective: S/e at bedside, POD#2. Pt does admit to some hematuria and burning on urination. Patient denies f/ch/dizziness/kennedy/cp/sob/n/v/d. No further complaints. Objective - Vital Signs/Intake and Output Vital Signs (last 24 hours): Temp Pulse Resp BP Pulse Ox 98.2 F 71 18 141/65 97 01/07/17 16:29 01/07/17 16:29 01/07/17 16:29 01/07/17 16:29 01/07/17 16:29 Intake and Output: 01/07/17 01/08/17 18:59 06:59 Intake Total 0 660 Output Total 200 1050 Balance -200 -390 - Medications Medications: Current Medications Acetaminophen (Tylenol 325mg Tab) 650 mg PO Q4H PRN PRN Reason: Fever >100.4 F Last Admin: 01/07/17 20:08 Dose: 650 mg Meropenem 1g/NS 100mL IVPB (Meropenem 1g/Ns 100ml Ivpb) 1 gm in 100 mls @ 100 mls/hr IVPB Q8 JOSÉ MIGUEL PRN Reason: Protocol Stop: 01/14/17 14:01 Last Admin: 01/07/17 14:40 Dose: 100 mls/hr Sodium Chloride (Sodium Chloride 0.9%) 1,000 mls @ 75 mls/hr IV .[id number] [facility] Last Admin: 01/07/17 14:40 Dose: 75 mls/hr Morphine Sulfate (Morphine) 2 mg IVP Q4H PRN PRN Reason: Pain, severe (8-10) Last Admin: 01/06/17 09:57 Dose: 2 mg Ondansetron HCl (Zofran Inj) 4 mg IVP Q4H PRN PRN Reason: Nausea/Vomiting Last Admin: 01/05/17 01:24 Dose: 4 mg Pantoprazole Sodium (Protonix Inj) 40 mg IVP DAILY [facility] Last Admin: 01/07/17 09:18 Dose: 40 mg Tamsulosin HCl (Flomax) 0.4 mg PO DAILY [facility] Last Admin: 01/06/17 09:19 Dose: 0.4 mg - Labs Labs: 01/07/17 08:30 01/07/17 08:30 PT 10.6 Seconds (9.9-11.8) 01/07/17 07:30 INR 0.98 (0.93-1.08) 01/07/17 07:30 - Additional Findings Additional findings: Phys Exam: VS as below Constitutional: a&o x 4, nad Head and Neck: neck supple, no jvd, trachea midline, carotid midline, no cervical/head mass Eyes: nakul, nonicteric sclera, eom intact ENT: auditory acuity grossly intact, throat not congested, no nasal deformity Cardio: rrr, no m/r/g, no carotid bruit, nml s1, s2 Pulm: no accessory muscle use, equal nml breath sounds bilaterally, ctab Abd: +Sajan's sign; +diffuse abdominal tenderness; s/nd, nbs x 4 q, no palpable masses Derm: no rashes, no ulcers, no lesions Extr: no edema, no cyanosis, no calf tenderness, no lesions, no varicosities Neuro: cn II-XII grossly intact, ue and le 5/5 muscle strength bilaterally, no los ue, le bilaterally and core Assessment and Plan - Assessment and Plan (Free Text) Assessment: 66 year old female with pmh of Nephrolithiasis, and HTN who presented with left flank plan that radiates to groin found to have a L 1.3cm obstructing distal ureter stone with mod hydronephrosis. Plan: 1. Nephrolithiasis s/p Cystogram with Retrograde Pyelogram, POD#2 Current - f/u urology recs - surgery performed 01/05/17. Will need a second surgery to remove stent at a later date. - Pain Control: Morphine 2 Q4 - Tylenol for fevers - Tamsulosin daily - Strict Is and Os - Q4 Vital Signs - Fluids NS @ 100 2. UTI likely 2/2 to ureter obstruction History: - Procal: 10.2 Current: - WBC stays low at 6.5 01/07/17 - Blood and Urine Cultures: Gram negative rods - E. Coli. ESBL, per ID - F/u with urology regarding fistulas because both b/c and u/c are growing E. Coli - IV abx - Meropenem, day 3 - will need a total of 10-14 days. 3. Lesser curvature nodule measuring 2.1cm Current: - Surgery c/s: recommend GI consult. As of 01/06/17, no surgical intervention. Will await biopsy - IR was scheduled to perform biopsy today, 01/07/17 - no note found in charts. Will follow up. 4. GI/DVT Proph - Protnix/SCDs
[2017-01-07] MEDS: Morphine 2 mg/ml ISec IVP PRN (23:05)
[2017-01-08] MEDS: Meropenem 1g/NS 100mL IVPB 1 GM/100 ML PIGGYBACK IVPB SCH ×3 (05:09→21:43)
[2017-01-08 08:27] LABS: BASO # 0.03 K/mm3 (0.0-2.0); BASO % 0.5 % (0.0-3.0); EOS # 0.3 (0.0-0.7); EOS % 5.5 % (1.5-5.0); GRAN # 2.91 (1.4-6.5); HEMOGLOBIN 11.1 gm/dL (12.0-16.0); LYMPH # 1.9 (1.2-3.4); LYMPH % 33.2 % (22.0-35.0); MEAN CELL VOLUME 86.2 fL (80.0-105.0); MEAN CORPUSCULAR HEMOGLOBIN 27.8 pg (25.0-35.0); MEAN CORPUSCULAR HGB CONC 32.3 g/dl (31.0-37.0); MEAN PLATELET VOLUME 10.5 fl (7.0-11.0); MONO # 0.6 (0.1-0.6); MONO % 10.8 % (1.0-6.0); PLATELET COUNT 176 10^3/uL (120.0-450.0); RBC 3.99 10^6/uL (3.5-6.1); RED CELL DISTRIBUTION WIDTH 14.2 % (11.5-14.5); WHITE BLOOD COUNT 5.8 10^3/ul (4.5-11.0)
[2017-01-08 08:27] LABS: ALB/GLOB RATIO 1.2 (1.1-1.8); ALBUMIN 3.4 g/dL (3.0-4.8); ALT/SGPT 75 U/L (7-56); AST/SGOT 60 U/L (15-39); BLOOD UREA NITROGEN 10 mg/dL (7-21); CALCIUM 8.8 mg/dL (8.4-10.5); GFR AFRICAN-AMERICAN > 60; GFR NON-AFRICAN AMERICAN > 60; MAGNESIUM 1.8 mg/dL (1.7-2.2)
[2017-01-08] MEDS: Sodium Chloride 0.9% 1,000 ML IV SCH (09:57)
[2017-01-08] MEDS ORDERED: Potassium Chloride 20 mEq ER Tab PO STA (10:07)
[2017-01-08] MEDS ORDERED: Midazolam 2 MG/2 ML VIAL ONE (12:49)
[2017-01-08] MEDS ORDERED: Sodium Chloride 0.45% 1,000 ML IV SCH (13:45)
[2017-01-08] MEDS: Oxycodone/Acetaminophen 5/325 mg Tab PO PRN ×2 (13:50→18:19)
[2017-01-08] MEDS ORDERED: Oxycodone/Acetaminophen 5/325 mg Tab ONE (13:55)
[2017-01-08] MEDS: Morphine 2 mg/ml ISec IVP PRN ×2 (15:00→20:17)
--- NOTE | 2017-01-08 15:23 | CP.PCM.PN ---
Subjective - Date & Time of Evaluation Date of Evaluation: 01/08/17 Time of Evaluation: 09:20 - Subjective Subjective: Comfortable in bed, no flank pain currently, no fevers overnight. Objective - Vital Signs/Intake and Output Vital Signs (last 24 hours): Temp Pulse Resp BP Pulse Ox 98.2 F 71 18 141/65 97 01/07/17 16:29 01/07/17 16:29 01/07/17 16:29 01/07/17 16:29 01/07/17 16:29 Intake and Output: 01/07/17 01/08/17 18:59 06:59 Intake Total 0 2775 Output Total 200 1615 Balance -200 1160 - Medications Medications: Current Medications Acetaminophen (Tylenol 325mg Tab) 650 mg PO Q4H PRN PRN Reason: Fever >100.4 F Last Admin: 01/07/17 20:08 Dose: 650 mg Meropenem 1g/NS 100mL IVPB (Meropenem 1g/Ns 100ml Ivpb) 1 gm in 100 mls @ 100 mls/hr IVPB Q8 JOSÉ MIGUEL PRN Reason: Protocol Stop: 01/14/17 14:01 Last Admin: 01/08/17 05:09 Dose: 100 mls/hr Sodium Chloride (Sodium Chloride 0.9%) 1,000 mls @ 75 mls/hr IV .[id number] [facility] Last Admin: 01/07/17 14:40 Dose: 75 mls/hr Morphine Sulfate (Morphine) 2 mg IVP Q4H PRN PRN Reason: Pain, severe (8-10) Last Admin: 01/07/17 23:05 Dose: 2 mg Ondansetron HCl (Zofran Inj) 4 mg IVP Q4H PRN PRN Reason: Nausea/Vomiting Last Admin: 01/05/17 01:24 Dose: 4 mg Pantoprazole Sodium (Protonix Inj) 40 mg IVP DAILY [facility] Last Admin: 01/07/17 09:18 Dose: 40 mg Tamsulosin HCl (Flomax) 0.4 mg PO DAILY [facility] Last Admin: 01/08/17 02:03 Dose: Not Given - Labs Labs: 01/07/17 08:30 01/07/17 08:30 PT 10.6 Seconds (9.9-11.8) 01/07/17 07:30 INR 0.98 (0.93-1.08) 01/07/17 07:30 - Constitutional Appears: Non-toxic, No Acute Distress - Head Exam Head Exam: NORMAL INSPECTION - ENT Exam ENT Exam: Mucous Membranes Moist - Neck Exam Neck Exam: absent: Lymphadenopathy, Meningismus - Respiratory Exam Respiratory Exam: Decreased Breath Sounds - Cardiovascular Exam Cardiovascular Exam: +S1, +S2 - GI/Abdominal Exam GI & Abdominal Exam: Soft. absent: Tenderness Assessment and Plan - Assessment and Plan (Free Text) Plan: Assessment sepsis due to ESBL-producing multidrug-resistant E. coli bacteremia associated with left ureteral obstruction and pyelonephritis S/P stent placement POD #4 HTN history of nephrolithiasis in the past Plan Continue Merrem to complete 10-14 days of therapy (day 4 today from day of procedure) Will continue to monitor clinically
--- NOTE | 2017-01-08 15:40 | CP.PCM.PN ---
Subjective - Date & Time of Evaluation Date of Evaluation: 01/08/17 Time of Evaluation: 07:00 - Subjective Subjective: S/e at bedside. Pt POD #3. Pt states hematuria and burning on urination have resolved. Patient denies f/ch/dizziness/kennedy/cp/sob/n/v/d. Pt complains of some pain in her left buttock.No further complaints. Objective - Vital Signs/Intake and Output Vital Signs (last 24 hours): Temp Pulse Resp BP Pulse Ox 98.2 F 61 16 164/75 H 97 01/08/17 14:15 01/08/17 14:15 01/08/17 14:15 01/08/17 14:15 01/08/17 14:15 Intake and Output: 01/08/17 01/08/17 06:59 18:59 Intake Total 2775 150 Output Total 1615 Balance 1160 150 - Medications Medications: Current Medications Acetaminophen (Tylenol 325mg Tab) 650 mg PO Q4H PRN PRN Reason: Fever >100.4 F Last Admin: 01/07/17 20:08 Dose: 650 mg Meropenem 1g/NS 100mL IVPB (Meropenem 1g/Ns 100ml Ivpb) 1 gm in 100 mls @ 100 mls/hr IVPB Q8 JOSÉ MIGUEL PRN Reason: Protocol Stop: 01/14/17 14:01 Last Admin: 01/08/17 15:00 Dose: 100 mls/hr Sodium Chloride (Sodium Chloride 0.45%) 1,000 mls @ 80 mls/hr IV .[id number] [facility] Stop: 01/09/17 12:00 Last Admin: 01/08/17 15:11 Dose: 80 mls/hr Morphine Sulfate (Morphine) 2 mg IVP Q4H PRN PRN Reason: Pain, severe (8-10) Last Admin: 01/08/17 15:00 Dose: 2 mg Ondansetron HCl (Zofran Inj) 4 mg IVP Q4H PRN PRN Reason: Nausea/Vomiting Last Admin: 01/05/17 01:24 Dose: 4 mg Oxycodone/Acetaminophen (Percocet 5/325 Mg Tab) 1 tab PO Q4H PRN PRN Reason: Pain, moderate (4-7) Stop: 01/11/17 13:40 Last Admin: 01/08/17 13:50 Dose: 1 tab Pantoprazole Sodium (Protonix Inj) 40 mg IVP DAILY [facility] Last Admin: 01/08/17 09:55 Dose: 40 mg Tamsulosin HCl (Flomax) 0.4 mg PO DAILY [facility] Last Admin: 01/08/17 09:55 Dose: 0.4 mg - Labs Labs: 01/08/17 08:00 01/08/17 07:45 PT 10.6 Seconds (9.9-11.8) 01/07/17 07:30 INR 0.98 (0.93-1.08) 01/07/17 07:30 - Additional Findings Additional findings: Phys Exam: VS as below Constitutional: a&o x 4, nad Head and Neck: neck supple, no jvd, trachea midline, carotid midline, no cervical/head mass Eyes: nakul, nonicteric sclera, eom intact ENT: auditory acuity grossly intact, throat not congested, no nasal deformity Cardio: rrr, no m/r/g, no carotid bruit, nml s1, s2 Pulm: no accessory muscle use, equal nml breath sounds bilaterally, ctab Abd: +Sajan's sign; +diffuse abdominal tenderness; s/nd, nbs x 4 q, no palpable masses Derm: no rashes, no ulcers, no lesions Extr: no edema, no cyanosis, no calf tenderness, no lesions, no varicosities Neuro: cn II-XII grossly intact, ue and le 5/5 muscle strength bilaterally, no los ue, le bilaterally and core Assessment and Plan - Assessment and Plan (Free Text) Assessment: 66 year old female with pmh of Nephrolithiasis, and HTN who presented with left flank plan that radiates to groin found to have a L 1.3cm obstructing distal ureter stone with mod hydronephrosis. Plan: 1. Nephrolithiasis s/p Cystogram with Retrograde Pyelogram Current - f/u urology recs - surgery performed 01/05/17, POD #3 Will need a second surgery to remove stent at a later date. - Pain Control: Morphine 2 Q4 - Tylenol for fevers - Tamsulosin daily - Strict Is and Os - Q4 Vital Signs - Fluids NS @ 100 2. UTI likely 2/2 to ureter obstruction - WBC dec to 5.9 01/06/17 - Blood and Urine Cultures: Gram negative rods - E. Coli - Procal: 10.2 - F/u with urology regarding fistulas because both b/c and u/c are growing E. Coli - IV abx - Meropenem 3. Lesser curvature nodule measuring 2.1cm - Surgery c/s: recommend GI consult. As of 01/06/17, no surgical intervention. Will await biopsy - F/u IR consult: Scheduled for 01/07/17, but was done 01/08/2017 4. L gluteal pain - U/S ordered 5. GI/DVT Proph - Protnix/SCDs Case d/w Dr. Ernestine Roche, DO PGY-1
--- NOTE | 2017-01-08 17:12 | CT ---
PROCEDURE: CT guided abdominal biopsy. HISTORY: Isolated 2 cm lymph node in the gastrohepatic ligament. Evaluate for malignancy. PHYSICIAN(S): Alfonso Jaquez MD. TECHNIQUE: The relative risks and indications of the procedure were explained to the patient and consent obtained. The patient was placed supine on the CT scanner and preliminary images through the upper abdomen obtained. Conscious sedation and monitoring were provided throughout the procedure by a nurse. There is a 2 cm isolated lymph node in the gastrohepatic ligament.. A subxyphoid approach was selected and the area prepped and draped in the usual sterile fashion. 1% Xylocaine was used to anesthetize the skin and soft tissues. A 17-gauge guiding needle was advanced into the 2 cm lymph node in the gastrohepatic ligament. Its position was confirmed with CT. Using coaxial technique, multiple core biopsies were obtained. The postprocedure images show no evidence of significant hemorrhage. IMPRESSION: 1. CT-guided abdominal biopsy as described above.
[2017-01-09] MEDS: Sodium Chloride 0.9% 1,000 ML IV SCH (02:07)
[2017-01-09] MEDS: Meropenem 1g/NS 100mL IVPB 1 GM/100 ML PIGGYBACK IVPB SCH ×3 (06:10→22:00)
[2017-01-09] MEDS: Morphine 2 mg/ml ISec IVP PRN (06:17)
[2017-01-09 07:41] LABS: HEMOGLOBIN 10.2 gm/dL (12.0-16.0); MEAN CELL VOLUME 85.8 fL (80.0-105.0); MEAN CORPUSCULAR HEMOGLOBIN 27.3 pg (25.0-35.0); MEAN CORPUSCULAR HGB CONC 31.9 g/dl (31.0-37.0); MEAN PLATELET VOLUME 9.9 fl (7.0-11.0); RBC 3.73 10^6/uL (3.5-6.1); RED CELL DISTRIBUTION WIDTH 14.3 % (11.5-14.5); WHITE BLOOD COUNT 6.7 10^3/ul (4.5-11.0)
[2017-01-09 07:45] LABS: BLOOD UREA NITROGEN 9 mg/dL (7-21); CALCIUM 8.6 mg/dL (8.4-10.5); GFR AFRICAN-AMERICAN > 60; GFR NON-AFRICAN AMERICAN > 60
[2017-01-09] MEDS ORDERED: Potassium Chloride 20 mEq ER Tab PO ONE (09:06)
[2017-01-09 09:19] LABS: MAGNESIUM 1.8 mg/dL (1.7-2.2)
--- NOTE | 2017-01-09 10:29 | CP.PCM.PN ---
Subjective - Date & Time of Evaluation Date of Evaluation: 01/09/17 Time of Evaluation: 10:10 - Subjective Subjective: Afebrile, not in distress. Objective - Vital Signs/Intake and Output Vital Signs (last 24 hours): Temp Pulse Resp BP Pulse Ox 98 F 69 17 131/63 99 01/08/17 16:00 01/08/17 16:00 01/08/17 16:00 01/08/17 16:00 01/08/17 16:00 Intake and Output: 01/08/17 01/09/17 18:59 06:59 Intake Total 150 1420 Output Total 900 Balance 150 520 - Medications Medications: Current Medications Acetaminophen (Tylenol 325mg Tab) 650 mg PO Q4H PRN PRN Reason: Fever >100.4 F Last Admin: 01/07/17 20:08 Dose: 650 mg Meropenem 1g/NS 100mL IVPB (Meropenem 1g/Ns 100ml Ivpb) 1 gm in 100 mls @ 100 mls/hr IVPB Q8 JOSÉ MIGUEL PRN Reason: Protocol Stop: 01/14/17 14:01 Last Admin: 01/09/17 06:10 Dose: 100 mls/hr Sodium Chloride (Sodium Chloride 0.45%) 1,000 mls @ 80 mls/hr IV .[id number] [facility] Stop: 01/09/17 12:00 Last Admin: 01/08/17 15:11 Dose: 80 mls/hr Morphine Sulfate (Morphine) 2 mg IVP Q4H PRN PRN Reason: Pain, severe (8-10) Last Admin: 01/09/17 06:17 Dose: 2 mg Ondansetron HCl (Zofran Inj) 4 mg IVP Q4H PRN PRN Reason: Nausea/Vomiting Last Admin: 01/08/17 20:17 Dose: 4 mg Oxycodone/Acetaminophen (Percocet 5/325 Mg Tab) 1 tab PO Q4H PRN PRN Reason: Pain, moderate (4-7) Stop: 01/11/17 13:40 Last Admin: 01/08/17 18:19 Dose: 1 tab Pantoprazole Sodium (Protonix Ec Tab) 40 mg PO 0600 [facility] Tamsulosin HCl (Flomax) 0.4 mg PO DAILY [facility] Last Admin: 01/08/17 09:55 Dose: 0.4 mg - Labs Labs: 01/08/17 08:00 01/08/17 07:45 PT 10.6 Seconds (9.9-11.8) 01/07/17 07:30 INR 0.98 (0.93-1.08) 01/07/17 07:30 - Constitutional Appears: Non-toxic, No Acute Distress - Head Exam Head Exam: NORMAL INSPECTION - ENT Exam ENT Exam: Mucous Membranes Moist - Neck Exam Neck Exam: absent: Lymphadenopathy, Meningismus - Respiratory Exam Respiratory Exam: Decreased Breath Sounds - Cardiovascular Exam Cardiovascular Exam: +S1, +S2 - GI/Abdominal Exam GI & Abdominal Exam: Soft. absent: Tenderness Assessment and Plan - Assessment and Plan (Free Text) Plan: Assessment sepsis due to ESBL-producing multidrug-resistant E. coli bacteremia associated with left ureteral obstruction and pyelonephritis S/P stent placement POD #5 HTN history of nephrolithiasis in the past Plan Continue Merrem to complete 10-14 days of therapy (day 5 today from day of procedure) Will continue to follow clinically
--- NOTE | 2017-01-09 21:48 | CP.PCM.PN ---
Subjective - Date & Time of Evaluation Date of Evaluation: 01/09/17 Time of Evaluation: 07:45 - Subjective Subjective: S/e at bedside. Pt POD #4. Pt states she is having diffuse abdominal pain - likely 2/2 procedure yesterday. Patient denies f/ch/dizziness/kennedy/cp/sob/n/v/d. No further complaints. Objective - Vital Signs/Intake and Output Vital Signs (last 24 hours): Temp Pulse Resp BP Pulse Ox 98.6 F 80 18 143/69 98 01/09/17 16:00 01/09/17 16:00 01/09/17 16:00 01/09/17 16:00 01/09/17 16:00 Intake and Output: 01/09/17 01/10/17 18:59 06:59 Intake Total 1080 Balance 1080 - Medications Medications: Current Medications Acetaminophen (Tylenol 325mg Tab) 650 mg PO Q4H PRN PRN Reason: Fever >100.4 F Last Admin: 01/07/17 20:08 Dose: 650 mg Meropenem 1g/NS 100mL IVPB (Meropenem 1g/Ns 100ml Ivpb) 1 gm in 100 mls @ 100 mls/hr IVPB Q8 JOSÉ MIGUEL PRN Reason: Protocol Stop: 01/14/17 14:01 Last Admin: 01/09/17 14:00 Dose: 100 mls/hr Morphine Sulfate (Morphine) 2 mg IVP Q4H PRN PRN Reason: Pain, severe (8-10) Last Admin: 01/09/17 06:17 Dose: 2 mg Ondansetron HCl (Zofran Inj) 4 mg IVP Q4H PRN PRN Reason: Nausea/Vomiting Last Admin: 01/08/17 20:17 Dose: 4 mg Oxycodone/Acetaminophen (Percocet 5/325 Mg Tab) 1 tab PO Q4H PRN PRN Reason: Pain, moderate (4-7) Stop: 01/11/17 13:40 Last Admin: 01/08/17 18:19 Dose: 1 tab Pantoprazole Sodium (Protonix Ec Tab) 40 mg PO 0600 JOSÉ MIGUEL Tamsulosin HCl (Flomax) 0.4 mg PO DAILY [facility] Last Admin: 01/09/17 09:08 Dose: 0.4 mg - Labs Labs: 01/09/17 07:20 01/09/17 07:20 PT 10.6 Seconds (9.9-11.8) 01/07/17 07:30 INR 0.98 (0.93-1.08) 01/07/17 07:30 - Additional Findings Additional findings: Phys Exam: VS as below Constitutional: a&o x 4, nad Head and Neck: neck supple, no jvd, trachea midline, carotid midline, no cervical/head mass Eyes: nakul, nonicteric sclera, eom intact ENT: auditory acuity grossly intact, throat not congested, no nasal deformity Cardio: rrr, no m/r/g, no carotid bruit, nml s1, s2 Pulm: no accessory muscle use, equal nml breath sounds bilaterally, ctab Abd: +diffuse abdominal tenderness; s/nd, nbs x 4 q, no palpable masses Derm: no rashes, no ulcers, no lesions Extr: no edema, no cyanosis, no calf tenderness, no lesions, no varicosities Neuro: cn II-XII grossly intact, ue and le 5/5 muscle strength bilaterally, no los ue, le bilaterally and core Assessment and Plan - Assessment and Plan (Free Text) Assessment: 1. Nephrolithiasis s/p Cystogram with Retrograde Pyelogram Current - f/u urology recs - surgery performed 01/05/17, POD #3 Will need a second surgery to remove stent at a later date. - Pain Control: Morphine 2 Q4 - Tylenol for fevers - Tamsulosin daily - Strict Is and Os - Q4 Vital Signs - Fluids NS @ 100 2. UTI likely 2/2 to ureter obstruction - WBC dec to 5.9 01/06/17 - Blood and Urine Cultures: Gram negative rods - E. Coli - Procal: 10.2 - F/u with urology regarding fistulas because both b/c and u/c are growing E. Coli - IV abx - Meropenem 3. Lesser curvature nodule measuring 2.1cm - Surgery c/s: recommend GI consult. As of 01/06/17, no surgical intervention. Will await biopsy - IR c/s for biopsy - Results: BENIGN lymphoid and adipose tissue 4. L gluteal pain - U/S ordered 5. GI/DVT Proph - Protnix/SCDs Case d/w Dr. Shaheen Roche, DO PGY-1
[2017-01-10] MEDS: Meropenem 1g/NS 100mL IVPB 1 GM/100 ML PIGGYBACK IVPB SCH ×3 (05:43→21:04)
[2017-01-10] MEDS: Pantoprazole 40 mg EC Tab PO SCH (05:44)
--- NOTE | 2017-01-10 14:11 | CP.PCM.PN ---
Subjective - Date & Time of Evaluation Date of Evaluation: 01/10/17 Time of Evaluation: 09:50 - Subjective Subjective: Comfortable, afebrile, not in distress. Objective - Vital Signs/Intake and Output Vital Signs (last 24 hours): Temp Pulse Resp BP Pulse Ox 98.6 F 80 18 143/69 98 01/09/17 16:00 01/09/17 16:00 01/09/17 16:00 01/09/17 16:00 01/09/17 16:00 Intake and Output: 01/10/17 01/10/17 06:59 18:59 Intake Total 780 Balance 780 - Medications Medications: Current Medications Acetaminophen (Tylenol 325mg Tab) 650 mg PO Q4H PRN PRN Reason: Fever >100.4 F Last Admin: 01/07/17 20:08 Dose: 650 mg Meropenem 1g/NS 100mL IVPB (Meropenem 1g/Ns 100ml Ivpb) 1 gm in 100 mls @ 100 mls/hr IVPB Q8 JOSÉ MIGUEL PRN Reason: Protocol Stop: 01/14/17 14:01 Last Admin: 01/10/17 05:43 Dose: 100 mls/hr Morphine Sulfate (Morphine) 2 mg IVP Q4H PRN PRN Reason: Pain, severe (8-10) Last Admin: 01/09/17 06:17 Dose: 2 mg Ondansetron HCl (Zofran Inj) 4 mg IVP Q4H PRN PRN Reason: Nausea/Vomiting Last Admin: 01/08/17 20:17 Dose: 4 mg Oxycodone/Acetaminophen (Percocet 5/325 Mg Tab) 1 tab PO Q4H PRN PRN Reason: Pain, moderate (4-7) Stop: 01/11/17 13:40 Last Admin: 01/08/17 18:19 Dose: 1 tab Pantoprazole Sodium (Protonix Ec Tab) 40 mg PO 0600 [facility] Last Admin: 01/10/17 05:44 Dose: 40 mg Tamsulosin HCl (Flomax) 0.4 mg PO DAILY [facility] Last Admin: 01/09/17 09:08 Dose: 0.4 mg - Labs Labs: 01/09/17 07:20 01/09/17 07:20 PT 10.6 Seconds (9.9-11.8) 01/07/17 07:30 INR 0.98 (0.93-1.08) 01/07/17 07:30 - Constitutional Appears: Non-toxic, No Acute Distress - Head Exam Head Exam: NORMAL INSPECTION - ENT Exam ENT Exam: Mucous Membranes Moist - Neck Exam Neck Exam: absent: Meningismus - Respiratory Exam Respiratory Exam: Decreased Breath Sounds - Cardiovascular Exam Cardiovascular Exam: +S1, +S2 - GI/Abdominal Exam GI & Abdominal Exam: Soft. absent: Tenderness Assessment and Plan - Assessment and Plan (Free Text) Plan: Assessment sepsis due to ESBL-producing multidrug-resistant E. coli bacteremia associated with left ureteral obstruction and pyelonephritis S/P stent placement POD #6 HTN history of nephrolithiasis in the past Plan Continue Merrem to complete 10-14 days of therapy (day 6 today from day of procedure) Will continue to follow clinically
--- NOTE | 2017-01-10 20:09 | CP.PCM.PN ---
Subjective - Date & Time of Evaluation Date of Evaluation: 01/10/17 Time of Evaluation: 08:35 - Subjective Subjective: S/e at bedside. Pt POD #5. Pt states abdominal pain resolved. Patient denies f /ch/dizziness/kennedy/cp/sob/n/v/d. No further complaints. Objective - Vital Signs/Intake and Output Vital Signs (last 24 hours): Temp Pulse Resp BP Pulse Ox 98.6 F 80 18 143/69 98 01/09/17 16:00 01/09/17 16:00 01/09/17 16:00 01/09/17 16:00 01/09/17 16:00 Intake and Output: 01/10/17 01/11/17 18:59 06:59 Intake Total 240 Balance 240 - Medications Medications: Current Medications Acetaminophen (Tylenol 325mg Tab) 650 mg PO Q4H PRN PRN Reason: Fever >100.4 F Last Admin: 01/07/17 20:08 Dose: 650 mg Meropenem 1g/NS 100mL IVPB (Meropenem 1g/Ns 100ml Ivpb) 1 gm in 100 mls @ 100 mls/hr IVPB Q8 JOSÉ MIGUEL PRN Reason: Protocol Stop: 01/14/17 14:01 Last Admin: 01/10/17 13:26 Dose: 100 mls/hr Morphine Sulfate (Morphine) 2 mg IVP Q4H PRN PRN Reason: Pain, severe (8-10) Last Admin: 01/09/17 06:17 Dose: 2 mg Ondansetron HCl (Zofran Inj) 4 mg IVP Q4H PRN PRN Reason: Nausea/Vomiting Last Admin: 01/08/17 20:17 Dose: 4 mg Oxycodone/Acetaminophen (Percocet 5/325 Mg Tab) 1 tab PO Q4H PRN PRN Reason: Pain, moderate (4-7) Stop: 01/11/17 13:40 Last Admin: 01/08/17 18:19 Dose: 1 tab Pantoprazole Sodium (Protonix Ec Tab) 40 mg PO 0600 [facility] Last Admin: 01/10/17 05:44 Dose: 40 mg Tamsulosin HCl (Flomax) 0.4 mg PO DAILY [facility] Last Admin: 01/10/17 09:27 Dose: 0.4 mg - Labs Labs: 01/09/17 07:20 01/09/17 07:20 PT 10.6 Seconds (9.9-11.8) 01/07/17 07:30 INR 0.98 (0.93-1.08) 01/07/17 07:30 - Additional Findings Additional findings: Phys Exam: VS as below Constitutional: a&o x 4, nad Head and Neck: neck supple, no jvd, trachea midline, carotid midline, no cervical/head mass Eyes: nakul, nonicteric sclera, eom intact ENT: auditory acuity grossly intact, throat not congested, no nasal deformity Cardio: rrr, no m/r/g, no carotid bruit, nml s1, s2 Pulm: no accessory muscle use, equal nml breath sounds bilaterally, ctab Abd: +diffuse abdominal tenderness; s/nd, nbs x 4 q, no palpable masses Derm: no rashes, no ulcers, no lesions Extr: no edema, no cyanosis, no calf tenderness, no lesions, no varicosities Neuro: cn II-XII grossly intact, ue and le 5/5 muscle strength bilaterally, no los ue, le bilaterally and core Assessment and Plan - Assessment and Plan (Free Text) Assessment: 66F presented with nephrolithiasis; now s/p stent placement + cystoscopy with retrograde pyelogram Plan: 1. Nephrolithiasis s/p Cystogram with Retrograde Pyelogram Current - f/u urology recs - surgery performed 01/05/17, POD #5 Will need a second surgery to remove stent at a later date. - Pain Control: Morphine 2 Q4 - Tylenol for fevers - Tamsulosin daily - Strict Is and Os - Q4 Vital Signs - Fluids NS @ 100 2. UTI likely 2/2 to ureter obstruction - WBC dec to 5.9 01/06/17 - Blood and Urine Cultures: Gram negative rods - E. Coli - Procal: 10.2 - F/u with urology regarding fistulas because both b/c and u/c are growing E. Coli - IV abx - Meropenem 3. Lesser curvature nodule measuring 2.1cm - Surgery c/s: recommend GI consult. As of 01/06/17, no surgical intervention. Will await biopsy - IR c/s for biopsy - Results: BENIGN lymphoid and adipose tissue 4. GI/DVT Proph - Protnix/SCDs Case d/w Dr. Ernestine Roche, DO PGY-1
[2017-01-11] MEDS: Meropenem 1g/NS 100mL IVPB 1 GM/100 ML PIGGYBACK IVPB SCH ×3 (05:16→22:16)
[2017-01-11] MEDS: Pantoprazole 40 mg EC Tab PO SCH (05:16)
[2017-01-11 07:50] LABS: HEMOGLOBIN 11.4 gm/dL (12.0-16.0); MEAN CELL VOLUME 85.7 fL (80.0-105.0); MEAN CORPUSCULAR HEMOGLOBIN 27.5 pg (25.0-35.0); MEAN CORPUSCULAR HGB CONC 32.1 g/dl (31.0-37.0); MEAN PLATELET VOLUME 9.9 fl (7.0-11.0); RBC 4.14 10^6/uL (3.5-6.1); RED CELL DISTRIBUTION WIDTH 14.4 % (11.5-14.5); WHITE BLOOD COUNT 8.1 10^3/ul (4.5-11.0)
[2017-01-11 08:02] LABS: ALBUMIN 3.7 g/dL (3.0-4.8); ALT/SGPT 120 U/L (7-56); AST/SGOT 96 U/L (15-39); BLOOD UREA NITROGEN 12 mg/dL (7-21); CALCIUM 9.2 mg/dL (8.4-10.5); GFR AFRICAN-AMERICAN > 60; GFR NON-AFRICAN AMERICAN > 60
--- NOTE | 2017-01-11 09:41 | CP.PCM.PN ---
Subjective - Date & Time of Evaluation Date of Evaluation: 01/11/17 Time of Evaluation: 09:41 - Subjective Subjective: Medicine Progress Note Patient seen and examined at bedside. As per nursing, there were no acute overnight events. She reports feeling better today. She denies having any pain, CP, SOB, n/v/d, numbness/tingling, fever or chills. She reports she has not passed any stones at this time. Objective - Vital Signs/Intake and Output Vital Signs (last 24 hours): Temp Pulse Resp BP Pulse Ox 98.5 F 73 20 149/62 97 01/11/17 06:00 01/11/17 06:00 01/11/17 06:00 01/11/17 06:00 01/11/17 06:00 Intake and Output: 01/11/17 01/11/17 06:59 18:59 Intake Total 720 Output Total 1150 Balance -430 - Medications Medications: Current Medications Acetaminophen (Tylenol 325mg Tab) 650 mg PO Q4H PRN PRN Reason: Fever >100.4 F Last Admin: 01/07/17 20:08 Dose: 650 mg Meropenem 1g/NS 100mL IVPB (Meropenem 1g/Ns 100ml Ivpb) 1 gm in 100 mls @ 100 mls/hr IVPB Q8 JOSÉ MIGUEL PRN Reason: Protocol Stop: 01/14/17 14:01 Last Admin: 01/11/17 05:16 Dose: 100 mls/hr Morphine Sulfate (Morphine) 2 mg IVP Q4H PRN PRN Reason: Pain, severe (8-10) Last Admin: 01/09/17 06:17 Dose: 2 mg Ondansetron HCl (Zofran Inj) 4 mg IVP Q4H PRN PRN Reason: Nausea/Vomiting Last Admin: 01/08/17 20:17 Dose: 4 mg Oxycodone/Acetaminophen (Percocet 5/325 Mg Tab) 1 tab PO Q4H PRN PRN Reason: Pain, moderate (4-7) Stop: 01/11/17 13:40 Last Admin: 01/08/17 18:19 Dose: 1 tab Pantoprazole Sodium (Protonix Ec Tab) 40 mg PO 0600 J[facility] Last Admin: 01/11/17 05:16 Dose: 40 mg Tamsulosin HCl (Flomax) 0.4 mg PO DAILY [facility] Last Admin: 01/11/17 09:19 Dose: 0.4 mg - Labs Labs: 01/11/17 07:30 01/11/17 07:30 PT 10.6 Seconds (9.9-11.8) 01/07/17 07:30 INR 0.98 (0.93-1.08) 01/07/17 07:30 - Constitutional Appears: No Acute Distress - Head Exam Head Exam: ATRAUMATIC, NORMAL INSPECTION, NORMOCEPHALIC - Eye Exam Eye Exam: Normal appearance, PERRL Pupil Exam: NORMAL ACCOMODATION, PERRL - ENT Exam ENT Exam: Mucous Membranes Moist - Neck Exam Neck Exam: Full ROM - Respiratory Exam Respiratory Exam: Clear to Ausculation Bilateral, NORMAL BREATHING PATTERN. absent: Rales, Rhonchi, Wheezes - Cardiovascular Exam Cardiovascular Exam: REGULAR RHYTHM, +S1, +S2. absent: Gallop, Rubs, Murmur - GI/Abdominal Exam GI & Abdominal Exam: Soft, Tenderness (diffuse), Normal Bowel Sounds. absent: Rigid, Mass, Rebound - Extremities Exam Extremities Exam: Normal Inspection, Pedal Edema (trace). absent: Calf Tenderness - Neurological Exam Neurological Exam: Alert, Awake, CN II-XII Intact, Oriented x3 - Psychiatric Exam Psychiatric exam: Normal Affect, Normal Mood - Skin Skin Exam: Dry, Intact, Normal Color, Warm Assessment and Plan - Assessment and Plan (Free Text) Assessment: This is a 66Y F with PMH HTN and nephrolithiasis admitted for sepsis secondary to ESBL multidrug resistant bacteremia associated with L ureter obstruction and pyelonephritis. Patient had urethral stent placement she is POD #6. Plan: 1. Sepsis - improved - Secondary to ESBL Multidrug resistance Klebsiella in urine and blood secondary to pyelonephritis - afebrile, no leukocytosis - Repeat blood culture and urine culture negative - ID consulted-recs appreciated - Continue Merrem day #7- needs 10day course - Tylenol prn fever, Zofran prn nausea - F/U urology recommendations 2. Nephrolithasis - s/p L urethral stent POD#6 - Continue Flomax - Monitor I&O - Pain control: Morphine prn severe pain, Percocet prn moderate pain - Continue to monitor I&O - Follow up urology recommendations for stent removal 3. Lesser curvature nodule - Biopsy as per IR - Pathology showed benign lymphoid tissue and fibroid adipose tissue 4. Hx of HTN - Normotensive at this time - Will continue to monitor BP GI ppx: Protonix DVT ppx: SCDs Dispo: Will await physical therapy evaluation. Case seen, discussed and reviewed with attending. Olena Maldonado PGY2
--- NOTE | 2017-01-11 14:02 | CP.PCM.PN ---
Subjective - Date & Time of Evaluation Date of Evaluation: 01/11/17 Time of Evaluation: 12:30 - Subjective Subjective: Comfortable in bed, no fevers overnight, not in distress, no flank pain, no dysuria. Objective - Vital Signs/Intake and Output Vital Signs (last 24 hours): Temp Pulse Resp BP Pulse Ox 98.5 F 73 20 149/62 97 01/11/17 06:00 01/11/17 06:00 01/11/17 06:00 01/11/17 06:00 01/11/17 06:00 Intake and Output: 01/11/17 01/11/17 06:59 18:59 Intake Total 720 Output Total 1150 Balance -430 - Medications Medications: Current Medications Acetaminophen (Tylenol 325mg Tab) 650 mg PO Q4H PRN PRN Reason: Fever >100.4 F Last Admin: 01/07/17 20:08 Dose: 650 mg Meropenem 1g/NS 100mL IVPB (Meropenem 1g/Ns 100ml Ivpb) 1 gm in 100 mls @ 100 mls/hr IVPB Q8 JOSÉ MIGUEL PRN Reason: Protocol Stop: 01/14/17 14:01 Last Admin: 01/11/17 05:16 Dose: 100 mls/hr Morphine Sulfate (Morphine) 2 mg IVP Q4H PRN PRN Reason: Pain, severe (8-10) Last Admin: 01/09/17 06:17 Dose: 2 mg Ondansetron HCl (Zofran Inj) 4 mg IVP Q4H PRN PRN Reason: Nausea/Vomiting Last Admin: 01/08/17 20:17 Dose: 4 mg Oxycodone/Acetaminophen (Percocet 5/325 Mg Tab) 1 tab PO Q4H PRN PRN Reason: Pain, moderate (4-7) Stop: 01/11/17 13:40 Last Admin: 01/08/17 18:19 Dose: 1 tab Pantoprazole Sodium (Protonix Ec Tab) [address] [facility] Last Admin: 01/11/17 05:16 Dose: 40 mg Tamsulosin HCl (Flomax) 0.[address] [facility] Last Admin: 01/10/17 09:27 Dose: 0.4 mg - Labs Labs: 01/11/17 07:30 01/11/17 07:30 PT 10.6 Seconds (9.9-11.8) 01/07/17 07:30 INR 0.98 (0.93-1.08) 01/07/17 07:30 - Constitutional Appears: Non-toxic, No Acute Distress - Head Exam Head Exam: NORMAL INSPECTION - ENT Exam ENT Exam: Mucous Membranes Moist - Neck Exam Neck Exam: absent: Lymphadenopathy, Meningismus - Respiratory Exam Respiratory Exam: Decreased Breath Sounds - Cardiovascular Exam Cardiovascular Exam: +S1, +S2 - GI/Abdominal Exam GI & Abdominal Exam: Soft. absent: Tenderness Assessment and Plan - Assessment and Plan (Free Text) Plan: Assessment sepsis due to ESBL-producing multidrug-resistant E. coli bacteremia associated with left ureteral obstruction and pyelonephritis S/P stent placement POD #7 HTN history of nephrolithiasis in the past Plan Continue Merrem to complete 10-14 days of therapy (day 7 today from day of procedure) Will continue to follow clinically Discussed with Dr. Sinha
[2017-01-12] MEDS: Pantoprazole 40 mg EC Tab PO SCH (06:27)
[2017-01-12] MEDS: Meropenem 1g/NS 100mL IVPB 1 GM/100 ML PIGGYBACK IVPB SCH ×4 (06:29→23:22)
[2017-01-12 06:43] LABS: ALBUMIN 3.6 g/dL (3.0-4.8); ALT/SGPT 133 U/L (7-56); AST/SGOT 104 U/L (15-39); BLOOD UREA NITROGEN 14 mg/dL (7-21); CALCIUM 9.1 mg/dL (8.4-10.5); GFR AFRICAN-AMERICAN > 60; GFR NON-AFRICAN AMERICAN > 60
[2017-01-12 06:44] LABS: HEMOGLOBIN 11.2 gm/dL (12.0-16.0); MEAN CORPUSCULAR HEMOGLOBIN 27.5 pg (25.0-35.0); MEAN CORPUSCULAR HGB CONC 31.5 g/dl (31.0-37.0); MEAN PLATELET VOLUME 10.3 fl (7.0-11.0); RBC 4.08 10^6/uL (3.5-6.1); RED CELL DISTRIBUTION WIDTH 14.5 % (11.5-14.5); WHITE BLOOD COUNT 7.5 10^3/ul (4.5-11.0)
--- NOTE | 2017-01-12 09:32 | CP.PCM.PN ---
Subjective - Date & Time of Evaluation Date of Evaluation: 01/12/17 Time of Evaluation: 09:25 - Subjective Subjective: Medicine Progress Note Patient seen and examined at bedside. As per nursing, there were no acute overnight events. Patient is complaining of LUQ pain that radiates to her back that is intermittent, sharp and resolves suddenly on its own. She did not ask for any pain medications for the pain. She denies CP, SOB, n/v/d, numbness/ tingling, fever or chills or constipation. She is complaining of vaginal itching , but no discharge or bleeding. Objective - Vital Signs/Intake and Output Vital Signs (last 24 hours): Temp Pulse Resp BP Pulse Ox 98.3 F 73 19 173/90 H 99 01/12/17 06:00 01/12/17 06:00 01/12/17 06:00 01/12/17 06:00 01/12/17 06:00 Intake and Output: 01/12/17 01/12/17 06:59 18:59 Intake Total 1080 Balance 1080 - Medications Medications: Current Medications Acetaminophen (Tylenol 325mg Tab) 650 mg PO Q4H PRN PRN Reason: Fever >100.4 F Last Admin: 01/07/17 20:08 Dose: 650 mg Meropenem 1g/NS 100mL IVPB (Meropenem 1g/Ns 100ml Ivpb) 1 gm in 100 mls @ 100 mls/hr IVPB Q8 JOSÉ MIGUEL PRN Reason: Protocol Stop: 01/14/17 14:01 Last Admin: 01/12/17 06:29 Dose: 100 mls/hr Morphine Sulfate (Morphine) 2 mg IVP Q4H PRN PRN Reason: Pain, severe (8-10) Last Admin: 01/09/17 06:17 Dose: 2 mg Ondansetron HCl (Zofran Inj) 4 mg IVP Q4H PRN PRN Reason: Nausea/Vomiting Last Admin: 01/12/17 06:30 Dose: 4 mg Pantoprazole Sodium (Protonix Ec Tab) 40 mg PO 0600 [facility] Last Admin: 01/12/17 06:27 Dose: 40 mg Tamsulosin HCl (Flomax) 0.4 mg PO DAILY [facility] Last Admin: 01/12/17 09:07 Dose: 0.4 mg - Labs Labs: 01/12/17 06:00 01/12/17 06:00 PT 10.6 Seconds (9.9-11.8) 01/07/17 07:30 INR 0.98 (0.93-1.08) 01/07/17 07:30 - Constitutional Appears: No Acute Distress - Head Exam Head Exam: ATRAUMATIC, NORMAL INSPECTION, NORMOCEPHALIC - Eye Exam Eye Exam: Normal appearance, PERRL Pupil Exam: NORMAL ACCOMODATION, PERRL - ENT Exam ENT Exam: Mucous Membranes Moist - Respiratory Exam Respiratory Exam: Clear to Ausculation Bilateral, NORMAL BREATHING PATTERN. absent: Rales, Rhonchi, Wheezes - Cardiovascular Exam Cardiovascular Exam: REGULAR RHYTHM, +S1, +S2. absent: Gallop, Rubs, Murmur - GI/Abdominal Exam GI & Abdominal Exam: Soft, Tenderness (LUQ), Normal Bowel Sounds. absent: Rigid , Mass, Rebound - Extremities Exam Extremities Exam: Normal Inspection. absent: Calf Tenderness, Pedal Edema - Neurological Exam Neurological Exam: Alert, Awake, CN II-XII Intact, Oriented x3 - Psychiatric Exam Psychiatric exam: Normal Affect, Normal Mood - Skin Skin Exam: Dry, Normal Color, Warm Assessment and Plan - Assessment and Plan (Free Text) Assessment: This is a 66Y F with PMH HTN and nephrolithiasis admitted for sepsis secondary to ESBL multidrug resistant bacteremia associated with L ureter obstruction and pyelonephritis. Patient had urethral stent placement she is POD #7. Plan: 1. Sepsis - improved - Secondary to ESBL Multidrug resistance Klebsiella in urine and blood secondary to pyelonephritis - Repeat blood culture and urine culture negative - ID consulted-recs appreciated - Continue Merrem day #8 out of 10 to complete course - Tylenol prn fever, Zofran prn nausea - F/U urology recommendations for stent removal during this admission - Will obtain CT abd/pelvis for LUQ pain 2. Nephrolithasis - s/p L urethral stent POD#7 - Continue Flomax - Morphine prn severe pain, Percocet prn moderate pain - Follow up urology recommendations for stent removal - Continue to monitor I&O 3. Hx of HTN - Normotensive at this time - Will continue to monitor BP 4. Vaginal pruritis - Miconazole cream 5. Lesser curvature nodule - Biopsy done as per IR - Pathology showed benign lymphoid tissue and fibroid adipose tissue GI ppx: Protonix DVT ppx: SCDs Dispo: Patient will need to complete antibiotic course of Merrem. Will await physical therapy evaluation. Case seen, discussed and reviewed with attending. Olena Maldonado PGY2
[2017-01-12] MEDS ORDERED: Iohexol 240 (50 ml) ONE ×2 (10:48→10:53)
[2017-01-12] MEDS ORDERED: Barium Sulfate Susp 2.1% w/v, 2.0% w/w 450 mL Bottle PO ONE (10:49)
[2017-01-12] MEDS ORDERED: Iodixanol 320 MG/ML 100 ML BOTTLE IV ONE (10:49)
[2017-01-12] MEDS ORDERED: Oxycodone/Acetaminophen 5/325 mg Tab PO PRN (11:37)
--- NOTE | 2017-01-12 11:49 | CP.PCM.PN ---
Subjective - Date & Time of Evaluation Date of Evaluation: 01/12/17 Time of Evaluation: 10:50 - Subjective Subjective: Comfortable, not in distress, afebrile, no dysuria. Objective - Vital Signs/Intake and Output Vital Signs (last 24 hours): Temp Pulse Resp BP Pulse Ox 98.5 F 73 20 149/62 97 01/11/17 06:00 01/11/17 06:00 01/11/17 06:00 01/11/17 06:00 01/11/17 06:00 Intake and Output: 01/11/17 01/12/17 18:59 06:59 Intake Total 1080 Balance 1080 - Medications Medications: Current Medications Acetaminophen (Tylenol 325mg Tab) 650 mg PO Q4H PRN PRN Reason: Fever >100.4 F Last Admin: 01/07/17 20:08 Dose: 650 mg Meropenem 1g/NS 100mL IVPB (Meropenem 1g/Ns 100ml Ivpb) 1 gm in 100 mls @ 100 mls/hr IVPB Q8 JOSÉ MIGUEL PRN Reason: Protocol Stop: 01/14/17 14:01 Last Admin: 01/12/17 06:29 Dose: 100 mls/hr Morphine Sulfate (Morphine) 2 mg IVP Q4H PRN PRN Reason: Pain, severe (8-10) Last Admin: 01/09/17 06:17 Dose: 2 mg Ondansetron HCl (Zofran Inj) 4 mg IVP Q4H PRN PRN Reason: Nausea/Vomiting Last Admin: 01/12/17 06:30 Dose: 4 mg Pantoprazole Sodium (Protonix Ec Tab) 40 mg PO 0600 [facility] Last Admin: 01/12/17 06:27 Dose: 40 mg Tamsulosin HCl (Flomax) 0.4 mg PO DAILY [facility] Last Admin: 01/11/17 09:19 Dose: 0.4 mg - Labs Labs: 01/11/17 07:30 01/12/17 06:00 PT 10.6 Seconds (9.9-11.8) 01/07/17 07:30 INR 0.98 (0.93-1.08) 01/07/17 07:30 - Constitutional Appears: Non-toxic, No Acute Distress - Head Exam Head Exam: NORMAL INSPECTION - ENT Exam ENT Exam: Mucous Membranes Moist - Neck Exam Neck Exam: absent: Lymphadenopathy, Meningismus - Respiratory Exam Respiratory Exam: Decreased Breath Sounds - Cardiovascular Exam Cardiovascular Exam: +S1, +S2 - GI/Abdominal Exam GI & Abdominal Exam: Soft. absent: Tenderness Assessment and Plan - Assessment and Plan (Free Text) Plan: Assessment sepsis due to ESBL-producing multidrug-resistant E. coli bacteremia associated with left ureteral obstruction and pyelonephritis S/P stent placement POD #8 HTN history of nephrolithiasis in the past Plan Continue Merrem to complete 10-14 days of therapy (day 8 today from day of procedure) Will continue to follow clinically Discussed with Dr. Sinha
--- NOTE | 2017-01-12 15:16 | CT ---
PROCEDURE: CT Abdomen and Pelvis without intravenous contrast HISTORY: LUQ abdominal pain COMPARISON: 01/03/2017 CT TECHNIQUE: Without contrast.. Contrast Dose: Radiation dose: Total exam DLP = 1018 mGy-cm. This CT exam was performed using one or more of the following dose reduction techniques: Automated exposure control, adjustment of the mA and/or kV according to patient size, and/or use of iterative reconstruction technique. FINDINGS: LOWER THORAX: Unremarkable. LIVER: Fatty infiltration of the liver GALLBLADDER AND BILE DUCTS: Two gallstones are seen the large 10 mm. No evidence of cholecystitis PANCREAS: Unremarkable. No gross lesion or ductal dilatation. SPLEEN: Unremarkable. ADRENALS: Unremarkable. No mass. KIDNEYS AND URETERS: There is left-sided hydronephrosis that is essentially unchanged. There is no left ureteral stent in place. VASCULATURE: Unremarkable. No aortic aneurysm. BOWEL: Unremarkable. No obstruction. No gross mural thickening. APPENDIX: Unremarkable. Normal appendix. PERITONEUM: Unremarkable. No free fluid. No free air. LYMPH NODES: Unremarkable. No enlarged lymph nodes. BLADDER: Unremarkable. REPRODUCTIVE: Unremarkable. BONES: No acute fracture. OTHER FINDINGS: None. IMPRESSION: Left-sided hydronephrosis. Ureteral stent in place. No acute intra-abdominal findings
--- NOTE | 2017-01-12 20:13 | CP.PCM.PN ---
Subjective - Date & Time of Evaluation Date of Evaluation: 01/12/17 Time of Evaluation: 20:09 - Subjective Subjective: S:She has no complaints now. States that she is sick and tired of being poked. Her nurse requested me to insert a heparin lock. O: Last Vital Signs 3 Temp 98.6 F 01/12/17 18:00 Pulse 82 01/12/17 18:00 Resp 20 01/12/17 18:00 BP 148/88 01/12/17 18:00 Pulse Ox 98 01/12/17 18:00 Awake, alert , not in distress. LUNGS: Normla breathing pattern. A:Poor venous access. Encounter for intravenous line placement. P:# 24 angio cath was inserted in left distal volar forearm. Objective - Vital Signs/Intake and Output Vital Signs (last 24 hours): Temp Pulse Resp BP Pulse Ox 98.6 F 82 20 148/88 98 01/12/17 18:00 01/12/17 18:00 01/12/17 18:00 01/12/17 18:00 01/12/17 18:00 Intake and Output: 01/12/17 01/13/17 18:59 06:59 Intake Total 362 Balance 362 - Medications Medications: Current Medications Acetaminophen (Tylenol 325mg Tab) 650 mg PO Q4H PRN PRN Reason: Fever >100.4 F Last Admin: 01/12/17 15:24 Dose: 650 mg Meropenem 1g/NS 100mL IVPB (Meropenem 1g/Ns 100ml Ivpb) 1 gm in 100 mls @ 100 mls/hr IVPB Q8 JOSÉ MIGUEL PRN Reason: Protocol Stop: 01/14/17 14:01 Last Admin: 01/12/17 19:40 Dose: Not Given Miconazole Nitrate (Monistat 7 Vaginal Cream) 0 ea VG HS JOSÉ MIGUEL Morphine Sulfate (Morphine) 2 mg IVP Q4H PRN PRN Reason: Pain, severe (8-10) Last Admin: 01/09/17 06:17 Dose: 2 mg Ondansetron HCl (Zofran Inj) 4 mg IVP Q4H PRN PRN Reason: Nausea/Vomiting Last Admin: 01/12/17 06:30 Dose: 4 mg Oxycodone/Acetaminophen (Percocet 5/325 Mg Tab) 1 tab PO Q6H PRN PRN Reason: Pain, moderate (4-7) Stop: 01/15/17 11:38 Pantoprazole Sodium (Protonix Ec Tab) 40 mg PO 0600 [facility] Last Admin: 01/12/17 06:27 Dose: 40 mg Tamsulosin HCl (Flomax) 0.4 mg PO DAILY [facility] Last Admin: 01/12/17 09:07 Dose: 0.4 mg - Labs Labs: 01/12/17 06:00 01/12/17 06:00 PT 10.6 Seconds (9.9-11.8) 01/07/17 07:30 INR 0.98 (0.93-1.08) 01/07/17 07:30
[2017-01-12] MEDS: Miconazole 2% Vaginal Cream(45 gm) VG SCH (23:23)
[2017-01-13] MEDS: Meropenem 1g/NS 100mL IVPB 1 GM/100 ML PIGGYBACK IVPB SCH ×3 (05:36→21:07)
[2017-01-13] MEDS: Pantoprazole 40 mg EC Tab PO SCH (05:36)
[2017-01-13 07:53] LABS: HEMOGLOBIN 12.7 gm/dL (12.0-16.0); MEAN CELL VOLUME 87.6 fL (80.0-105.0); MEAN CORPUSCULAR HEMOGLOBIN 28.2 pg (25.0-35.0); MEAN CORPUSCULAR HGB CONC 32.2 g/dl (31.0-37.0); MEAN PLATELET VOLUME 10.2 fl (7.0-11.0); RBC 4.51 10^6/uL (3.5-6.1); RED CELL DISTRIBUTION WIDTH 14.6 % (11.5-14.5); WHITE BLOOD COUNT 8.7 10^3/ul (4.5-11.0)
[2017-01-13 08:11] LABS: ALB/GLOB RATIO 1.1 (1.1-1.8); ALBUMIN 4.2 g/dL (3.0-4.8); ALT/SGPT 171 U/L (7-56); AST/SGOT 152 U/L (15-39); BLOOD UREA NITROGEN 14 mg/dL (7-21); CALCIUM 9.4 mg/dL (8.4-10.5); GFR AFRICAN-AMERICAN > 60; GFR NON-AFRICAN AMERICAN > 60
--- NOTE | 2017-01-13 08:48 | US ---
HISTORY: elevated lipase, r/o gallstones COMPARISON: Abdomen pelvis CT examination 01/12/2017 TECHNIQUE: Sonographic evaluation of the abdomen. FINDINGS: LIVER: Measures 18.0 cm. Mildly increased echogenicity of the liver parenchyma suggesting mild diffuse fatty infiltration liver. No mass. No intrahepatic bile duct dilatation. GALLBLADDER: Moderately distended with cholelithiasis identified identified at the neck. No definite acute sonographic findings to suggest active cholecystitis at this time. Clinically correlate nevertheless. COMMON BILE DUCT: Measures 5.6 mm. No stones. No dilatation. PANCREAS: The tail of the pancreas is obscured by overlying bowel gas with remainder unremarkable. No peripancreatic fluid collections identified at this time. Pancreatic duct is not identified suggesting normal caliber. RIGHT KIDNEY: Measures 11.5cm. Normal echogenicity. No calculus, mass, or hydronephrosis. LEFT KIDNEY: Measures 10.8cm. [id number] hydronephrosis is identified. Tram track echogenicity seen the left renal pelvis compatible with previously seen proximal segment of left ureteral stent on CT exam also performed 01/12/2017. No definite urolithiasis is identified or solid parenchymal lesion. SPLEEN: Normal in size and contour. No mass. AORTA: No aneurysmal dilatation. IVC: Unremarkable. OTHER FINDINGS: None. IMPRESSION: 1. The tail of the pancreas obscured by overlying bowel gas with the remainder unremarkable. 2. Cholelithiasis identified within the neck of the gallbladder with remaining the gallbladder unremarkable. No common bile duct dilatation appreciable. 3. [id number] left hydronephrosis with tram track echogenicity at the left renal pelvis suggests involve proximal segment of left ureteral stent seen in prior CT examination 01/12/2017 as well.
--- NOTE | 2017-01-13 11:49 | CP.PCM.CON ---
History of Present Illness - History of Present Illness History of Present Illness: Surgery Consult: Patient is a 66 yo female with PMH HTN and nephrolithiasis admitted for sepsis secondary to ESBL multidrug resistant bacteremia associated with L ureter obstruction and pyelonephritis. Patient had urethral stent placement she is POD #8. Surgery was consulted for evaluation of abdominal pain and a possible gastric ulcer perforation. Patient seen and examined at bedside. States that she was experiencing LUQ pain yesterday afternoon with no provoking event. It was characterized as being sharp in nature and rated a 10/10. The pain has resolved since onset without additional intervention. States that she is currently experiencing mild localized RUQ and epigastric abdominal discomfort today. Denies fever, chills, chest pain, SOB, N/V, diarrhea, constipation. PMD: None PMHx: Nephrolithiasis, HTN PSHx: Right Total Knee Replacement (20 years ago). Kidney Stone removal surgery in 2016 (Patient does not know details) Allergies - Unknown Antibiotic that causes pruritis. Social - 1 small cup of coffee a day. Denies Tobacco, Alcohol, and illicit Drug use. Hospitalizations - [facility] for Kidney Stone removal ( 2015) Review of Systems - Review of Systems Review of Systems: 12 point ROS negative except as indicated in HPI Past Patient History - Infectious Disease Hx of Infectious Diseases: None - Past Social History Smoking Status: Never Smoked - CARDIAC Hx Hypertension: Yes - RENAL Hx Kidney Stones: Yes - HEMATOLOGICAL/ONCOLOGICAL Hx Blood Transfusions: No Hx Blood Transfusion Reaction: No - MUSCULOSKELETAL/RHEUMATOLOGICAL Hx Falls: Yes (Fell down stairs) - PSYCHIATRIC Hx Depression: No Hx Emotional Abuse: No Hx Physical Abuse: No - SURGICAL HISTORY Hx Surgeries: Yes - ANESTHESIA Hx Anesthesia Reactions: No Hx Malignant Hyperthermia: No Meds Allergies/Adverse Reactions: Allergies Allergy/AdvReac Type Severity Reaction Status Date / Time No Known Allergies Allergy Verified 02/09/12 13:02 - Medications Medications: Current Medications Acetaminophen (Tylenol 325mg Tab) 650 mg PO Q4H PRN PRN Reason: Fever >100.4 F Last Admin: 01/12/17 15:24 Dose: 650 mg Meropenem 1g/NS 100mL IVPB (Meropenem 1g/Ns 100ml Ivpb) 1 gm in 100 mls @ 100 mls/hr IVPB Q8 [facility]IGUEL PRN Reason: Protocol Stop: 01/14/17 14:01 Last Admin: 01/13/17 05:36 Dose: 100 mls/hr Metronidazole (Flagyl) 500 mg in 100 mls @ 100 mls/hr IVPB Q8 REPLACED BY [facility] PRN Reason: Protocol Miconazole Nitrate (Monistat 7 Vaginal Cream) 0 ea VG HS REPLACED BY [facility] Last Admin: 01/12/17 23:23 Dose: 1 applic Morphine Sulfate (Morphine) 2 mg IVP Q4H PRN PRN Reason: Pain, severe (8-10) Last Admin: 01/09/17 06:17 Dose: 2 mg Ondansetron HCl (Zofran Inj) 4 mg IVP Q4H PRN PRN Reason: Nausea/Vomiting Last Admin: 01/12/17 06:30 Dose: 4 mg Oxycodone/Acetaminophen (Percocet 5/325 Mg Tab) 1 tab PO Q6H PRN PRN Reason: Pain, moderate (4-7) Stop: 01/15/17 11:38 Pantoprazole Sodium (Protonix Ec Tab) 40 mg PO 0600 REPLACED BY [facility] Last Admin: 01/13/17 05:36 Dose: 40 mg Tamsulosin HCl (Flomax) 0.4 mg PO DAILY REPLACED BY [facility] Last Admin: 01/13/17 09:24 Dose: 0.4 mg Physical Exam - Additional Findings Additional findings: - Constitutional Appears: No Acute Distress - Head Exam Head Exam: ATRAUMATIC, NORMAL INSPECTION, NORMOCEPHALIC - Eye Exam Eye Exam: Normal appearance, PERRL Pupil Exam: NORMAL ACCOMODATION, PERRL - ENT Exam ENT Exam: Mucous Membranes Moist - Respiratory Exam Respiratory Exam: Clear to Ausculation Bilateral, NORMAL BREATHING PATTERN. absent: Rales, Rhonchi, Wheezes - Cardiovascular Exam Cardiovascular Exam: REGULAR RHYTHM, +S1, +S2. absent: Gallop, Rubs, Murmur - GI/Abdominal Exam GI & Abdominal Exam: Soft, Tenderness (RUQ and Epigastric), Normal Bowel Sounds. absent: Rigid, Mass, Rebound - Extremities Exam Extremities Exam: Normal Inspection. absent: Calf Tenderness, Pedal Edema - Neurological Exam Neurological Exam: Alert, Awake, CN II-XII Intact, Oriented x3 - Psychiatric Exam Psychiatric exam: Normal Affect, Normal Mood - Skin Skin Exam: Dry, Normal Color, Warm Results - Vital Signs Recent Vital Signs: Last Vital Signs Temp 98.5 F 01/13/17 06:00 Pulse 77 01/13/17 06:00 Resp 17 01/13/17 06:00 BP 150/88 01/13/17 06:00 Pulse Ox 95 01/13/17 06:00 - Labs Result Diagrams: 01/13/17 07:30 01/13/17 07:30 Labs: Laboratory Results - last 24 hr 01/12/17 01/13/17 01/13/17 11:00 07:30 07:30 WBC 8.7 RBC 4.51 Hgb 12.7 Hct 39.5 MCV 87.6 MCH 28.2 MCHC 32.2 RDW 14.6 H Plt Count 332 MPV 10.2 Sodium 139 Potassium 4.1 Chloride 98 Carbon Dioxide 31 Anion Gap 14 BUN 14 Creatinine 0.6 Est GFR ( Amer) > 60 Est GFR (Non-Af Amer) > 60 Random Glucose 95 Calcium 9.4 Total Bilirubin 0.8 AST 152 H ALT 171 H Alkaline Phosphatase 98 Total Protein 8.1 Albumin 4.2 Globulin 3.9 Albumin/Globulin Ratio 1.1 Lipase 499 H Assessment & Plan - Assessment and Plan (Free Text) Assessment: 1. Abdominal pain - CT of abdomen pelvis reviewed- 1. Left-sided hydronephrosis. Ureteral stent in place. 2. No acute intra-abdominal findings - US of abdomen reviewed 1. The tail of the pancreas obscured by overlying bowel gas with the remainder unremarkable. 2. Cholelithiasis identified within the neck of the gallbladder with remaining the gallbladder unremarkable. No common bile duct dilatation appreciable. 3. [id number] left hydronephrosis with tram track echogenicity at the left renal pelvis - NPO - Abdominal X-ray Stat - Protonix IV BID - Continue meropenem; add flagyl, appreciate ID recs Will d/w attending
--- NOTE | 2017-01-13 12:33 | RAD ---
HISTORY: possible gastric ulcer perf COMPARISON: No prior. FINDINGS: BOWEL: Normal. No obstruction. No free air. BONES: Normal. OTHER FINDINGS: Left ureteral stent IMPRESSION: No active disease.
[2017-01-13] MEDS: metroNIDAZOLE IV 500 mg/100 ml 500 MG/100 ML BAG IVPB SCH ×2 (13:04→21:08)
--- NOTE | 2017-01-13 18:22 | CP.PCM.PN ---
Subjective - Date & Time of Evaluation Date of Evaluation: 01/13/17 Time of Evaluation: 08:40 - Subjective Subjective: Pt s/e bedside. She does not complain of vaginal itching today. Pt is still having intermittent abdominal pain - rpt CT showed possible perforation. Surgery consulted Objective - Vital Signs/Intake and Output Vital Signs (last 24 hours): Temp Pulse Resp BP Pulse Ox 98.5 F 77 17 150/88 95 01/13/17 06:00 01/13/17 06:00 01/13/17 06:00 01/13/17 06:00 01/13/17 06:00 Intake and Output: 01/13/17 01/13/17 06:59 18:59 Intake Total 880 Balance 880 - Medications Medications: Current Medications Acetaminophen (Tylenol 325mg Tab) 650 mg PO Q4H PRN PRN Reason: Fever >100.4 F Last Admin: 01/12/17 15:24 Dose: 650 mg Meropenem 1g/NS 100mL IVPB (Meropenem 1g/Ns 100ml Ivpb) 1 gm in 100 mls @ 100 mls/hr IVPB Q8 [facility] PRN Reason: Protocol Stop: 01/14/17 14:01 Last Admin: 01/13/17 13:03 Dose: 100 mls/hr Metronidazole (Flagyl) 500 mg in 100 mls @ 100 mls/hr IVPB Q8 [facility]EL PRN Reason: Protocol Last Admin: 01/13/17 13:04 Dose: 100 mls/hr Miconazole Nitrate (Monistat 7 Vaginal Cream) 0 ea VG HS [facility] Last Admin: 01/12/17 23:23 Dose: 1 applic Morphine Sulfate (Morphine) 2 mg IVP Q4H PRN PRN Reason: Pain, severe (8-10) Last Admin: 01/09/17 06:17 Dose: 2 mg Ondansetron HCl (Zofran Inj) 4 mg IVP Q4H PRN PRN Reason: Nausea/Vomiting Last Admin: 01/12/17 06:30 Dose: 4 mg Oxycodone/Acetaminophen (Percocet 5/325 Mg Tab) 1 tab PO Q6H PRN PRN Reason: Pain, moderate (4-7) Stop: 01/15/17 11:38 Pantoprazole Sodium (Protonix Inj) 40 mg IVP Q12 [facility] Last Admin: 01/13/17 13:12 Dose: 40 mg Tamsulosin HCl (Flomax) 0.4 mg PO DAILY [facility] Last Admin: 01/13/17 09:24 Dose: 0.4 mg - Labs Labs: 01/13/17 07:30 01/13/17 07:30 PT 10.6 Seconds (9.9-11.8) 01/07/17 07:30 INR 0.98 (0.93-1.08) 01/07/17 07:30 - Constitutional Appears: Well, Non-toxic - Head Exam Head Exam: ATRAUMATIC, NORMAL INSPECTION, NORMOCEPHALIC - Eye Exam Eye Exam: EOMI, Normal appearance, PERRL Pupil Exam: NORMAL ACCOMODATION, PERRL - ENT Exam ENT Exam: Mucous Membranes Moist, Normal Exam - Neck Exam Neck Exam: Full ROM, Normal Inspection - Respiratory Exam Respiratory Exam: Clear to Ausculation Bilateral, NORMAL BREATHING PATTERN - Cardiovascular Exam Cardiovascular Exam: REGULAR RHYTHM, +S1, +S2 - GI/Abdominal Exam GI & Abdominal Exam: Soft, Normal Bowel Sounds - Extremities Exam Extremities Exam: Full ROM, Normal Capillary Refill, Normal Inspection - Back Exam Back Exam: NORMAL INSPECTION - Neurological Exam Neurological Exam: Alert, Awake, CN II-XII Intact, Normal Gait, Oriented x3 - Psychiatric Exam Psychiatric exam: Normal Affect, Normal Mood - Skin Skin Exam: Intact, Normal Color Assessment and Plan - Assessment and Plan (Free Text) Plan: 1. Lesser curvature nodule - Biopsy done as per IR, found to be benign - RPT CT Scan shows possible perforation - surgery will keep NPO pending abdominal XR report 2. Sepsis - improved - Secondary to ESBL Multidrug resistance Klebsiella in urine and blood secondary to pyelonephritis - Repeat blood culture and urine culture negative - ID consulted-recs appreciated - Continue Merrem day #8 out of 10 to complete course - Tylenol prn fever, Zofran prn nausea - F/U urology recommendations for stent removal during this admission - Will obtain CT abd/pelvis for LUQ pain 3. Nephrolithasis - s/p L urethral stent POD#7 - Continue Flomax - Morphine prn severe pain, Percocet prn moderate pain - Follow up urology recommendations for stent removal - Continue to monitor I&O 4. Hx of HTN - Normotensive at this time - Will continue to monitor BP 5. Vaginal pruritis - Miconazole cream GI ppx: Protonix DVT ppx: SCDs Dispo: Patient will need to complete antibiotic course of Merrem. Will await physical therapy evaluation.
--- NOTE | 2017-01-13 21:06 | CP.PCM.PN ---
Subjective - Date & Time of Evaluation Date of Evaluation: 01/13/17 Time of Evaluation: 09:45 - Subjective Subjective: Comfortable, not in distress, afebrile. Objective - Vital Signs/Intake and Output Vital Signs (last 24 hours): Temp Pulse Resp BP Pulse Ox 98.6 F 82 20 148/88 98 01/12/17 18:00 01/12/17 18:00 01/12/17 18:00 01/12/17 18:00 01/12/17 18:00 Intake and Output: 01/13/17 01/13/17 06:59 18:59 Intake Total 880 Balance 880 - Medications Medications: Current Medications Acetaminophen (Tylenol 325mg Tab) 650 mg PO Q4H PRN PRN Reason: Fever >100.4 F Last Admin: 01/12/17 15:24 Dose: 650 mg Meropenem 1g/NS 100mL IVPB (Meropenem 1g/Ns 100ml Ivpb) 1 gm in 100 mls @ 100 mls/hr IVPB Q8 [facility] PRN Reason: Protocol Stop: 01/14/17 14:01 Last Admin: 01/13/17 05:36 Dose: 100 mls/hr Miconazole Nitrate (Monistat 7 Vaginal Cream) 0 ea VG HS [facility] Last Admin: 01/12/17 23:23 Dose: 1 applic Morphine Sulfate (Morphine) 2 mg IVP Q4H PRN PRN Reason: Pain, severe (8-10) Last Admin: 01/09/17 06:17 Dose: 2 mg Ondansetron HCl (Zofran Inj) 4 mg IVP Q4H PRN PRN Reason: Nausea/Vomiting Last Admin: 01/12/17 06:30 Dose: 4 mg Oxycodone/Acetaminophen (Percocet 5/325 Mg Tab) 1 tab PO Q6H PRN PRN Reason: Pain, moderate (4-7) Stop: 01/15/17 11:38 Pantoprazole Sodium (Protonix Ec Tab) 40 mg PO 0600 [facility] Last Admin: 01/13/17 05:36 Dose: 40 mg Tamsulosin HCl (Flomax) 0.4 mg PO DAILY [facility] Last Admin: 01/12/17 09:07 Dose: 0.4 mg - Labs Labs: 01/13/17 07:30 01/13/17 07:30 PT 10.6 Seconds (9.9-11.8) 01/07/17 07:30 INR 0.98 (0.93-1.08) 01/07/17 07:30 - Constitutional Appears: Non-toxic, No Acute Distress - Head Exam Head Exam: NORMAL INSPECTION - ENT Exam ENT Exam: Mucous Membranes Moist - Neck Exam Neck Exam: absent: Meningismus - Respiratory Exam Respiratory Exam: Decreased Breath Sounds - Cardiovascular Exam Cardiovascular Exam: +S1, +S2 - GI/Abdominal Exam GI & Abdominal Exam: Soft. absent: Tenderness Assessment and Plan - Assessment and Plan (Free Text) Plan: Assessment sepsis due to ESBL-producing multidrug-resistant E. coli bacteremia associated with left ureteral obstruction and pyelonephritis S/P stent placement POD #9 HTN history of nephrolithiasis in the past Plan Continue Merrem to complete 10-14 days of therapy (day 9 today from day of procedure) Will continue to follow clinically
[2017-01-13 22:30] LABS: PH,URINE 6.5 (4.7-8.0); URINE BILIRUBIN NEGATIVE (NEGATIVE); URINE BLOOD MODERATE (NEGATIVE); URINE GLUCOSE (UA) NEGATIVE (NEGATIVE); URINE LEUKOCYTE ESTERASE SMALL Leu/uL (NEGATIVE); URINE NITRATE NEGATIVE (NEGATIVE); URINE PROTEIN NEGATIVE mg/dL (<30 mg/dL); URINE UROBILINOGEN 0.2 E.U./dL (<1 E.U./dL)
[2017-01-13 22:32] LABS: URINE APPEARANCE CLEAR (CLEAR); URINE COLOR YELLOW (YELLOW)
[2017-01-13 22:40] LABS: URINE BACTERIA SMALL (NEG)
[2017-01-14] MEDS: Miconazole 2% Vaginal Cream(45 gm) VG SCH ×2 (01:15→22:48)
[2017-01-14] MEDS: metroNIDAZOLE IV 500 mg/100 ml 500 MG/100 ML BAG IVPB SCH ×3 (05:43→22:48)
[2017-01-14] MEDS: Meropenem 1g/NS 100mL IVPB 1 GM/100 ML PIGGYBACK IVPB SCH ×2 (05:43→13:26)
[2017-01-14 07:28] LABS: BASO # 0.03 K/mm3 (0.0-2.0); BASO % 0.4 % (0.0-3.0); EOS # 0.3 (0.0-0.7); EOS % 3.4 % (1.5-5.0); GRAN # 4.88 (1.4-6.5); GRAN % 63.8 % (50.0-68.0); HEMOGLOBIN 11.5 g/dL (12.0-16.0); LYMPH # 1.7 (1.2-3.4); LYMPH % 22.2 % (22.0-35.0); MEAN CELL VOLUME 86.5 fl (80.0-105.0); MEAN CORPUSCULAR HEMOGLOBIN 27.2 pg (25.0-35.0); MEAN CORPUSCULAR HGB CONC 31.4 g/dl (31.0-37.0); MONO # 0.8 (0.1-0.6); MONO % 10.2 % (1.0-6.0); PLATELET COUNT 297 10^3/uL (120.0-450.0); RBC 4.23 10^6/uL (3.5-6.1); RED CELL DISTRIBUTION WIDTH 14.4 % (11.5-14.5); WHITE BLOOD COUNT 7.7 10^3/ul (4.5-11.0)
[2017-01-14 07:37] LABS: PARTIAL THROMBOPLASTIN TIME 28.1 Seconds (23.7-30.8); PROTHROMBIN TIME 10.8 Seconds (9.9-11.8)
[2017-01-14 07:55] LABS: ALB/GLOB RATIO 1.1 (1.1-1.8); ALBUMIN 3.7 g/dL (3.0-4.8); ALT/SGPT 155 U/L (7-56); AST/SGOT 124 U/L (15-39); BLOOD UREA NITROGEN 14 mg/dL (7-21); CALCIUM 9.2 mg/dL (8.4-10.5); GFR AFRICAN-AMERICAN > 60; GFR NON-AFRICAN AMERICAN > 60
--- NOTE | 2017-01-14 09:37 | CP.PCM.PN ---
Subjective - Date & Time of Evaluation Date of Evaluation: 01/14/17 Time of Evaluation: 09:30 - Subjective Subjective: Patient seen and examined. No acute events overnight. Offers no new complaints at this time. Denies fever, chills, chest pain, SOB, abdominal pain, and N/V. Objective - Vital Signs/Intake and Output Vital Signs (last 24 hours): Temp Pulse Resp BP Pulse Ox 98.4 F 73 20 140/90 97 01/14/17 06:00 01/14/17 06:00 01/14/17 06:00 01/14/17 06:00 01/14/17 06:00 Intake and Output: 01/14/17 01/14/17 06:59 18:59 Intake Total 1140 Balance 1140 - Medications Medications: Current Medications Acetaminophen (Tylenol 325mg Tab) 650 mg PO Q4H PRN PRN Reason: Fever >100.4 F Last Admin: 01/12/17 15:24 Dose: 650 mg Meropenem 1g/NS 100mL IVPB (Meropenem 1g/Ns 100ml Ivpb) 1 gm in 100 mls @ 100 mls/hr IVPB Q8 [facility] PRN Reason: Protocol Stop: 01/14/17 14:01 Last Admin: 01/14/17 05:43 Dose: 100 mls/hr Metronidazole (Flagyl) 500 mg in 100 mls @ 100 mls/hr IVPB Q8 [facility]OS[facility] MIGUEL PRN Reason: Protocol Last Admin: 01/14/17 05:43 Dose: 100 mls/hr Miconazole Nitrate (Monistat 7 Vaginal Cream) 0 ea VG HS [facility] Last Admin: 01/14/17 01:15 Dose: Not Given Morphine Sulfate (Morphine) 2 mg IVP Q4H PRN PRN Reason: Pain, severe (8-10) Last Admin: 01/09/17 06:17 Dose: 2 mg Ondansetron HCl (Zofran Inj) 4 mg IVP Q4H PRN PRN Reason: Nausea/Vomiting Last Admin: 01/12/17 06:30 Dose: 4 mg Oxycodone/Acetaminophen (Percocet 5/325 Mg Tab) 1 tab PO Q6H PRN PRN Reason: Pain, moderate (4-7) Stop: 01/15/17 11:38 Pantoprazole Sodium (Protonix Inj) 40 mg IVP Q12 [facility] Last Admin: 01/14/17 09:03 Dose: 40 mg Tamsulosin HCl (Flomax) 0.4 mg PO DAILY [facility] Last Admin: 01/14/17 09:03 Dose: 0.4 mg - Labs Labs: 01/14/17 07:00 01/14/17 07:00 PT 10.8 Seconds (9.9-11.8) 01/14/17 07:00 INR 1.00 (0.93-1.08) 01/14/17 07:00 APTT 28.1 Seconds (23.7-30.8) 01/14/17 07:00 - Additional Findings Additional findings: - Constitutional Appears: No Acute Distress - Head Exam Head Exam: ATRAUMATIC, NORMAL INSPECTION, NORMOCEPHALIC - Eye Exam Eye Exam: Normal appearance, PERRL Pupil Exam: NORMAL ACCOMODATION, PERRL - ENT Exam ENT Exam: Mucous Membranes Moist - Respiratory Exam Respiratory Exam: Clear to Ausculation Bilateral, NORMAL BREATHING PATTERN. absent: Rales, Rhonchi, Wheezes - Cardiovascular Exam Cardiovascular Exam: REGULAR RHYTHM, +S1, +S2. absent: Gallop, Rubs, Murmur - GI/Abdominal Exam GI & Abdominal Exam: Soft, Normal Bowel Sounds. absent: Rigid, Mass, Rebound - Extremities Exam Extremities Exam: Normal Inspection. absent: Calf Tenderness, Pedal Edema - Neurological Exam Neurological Exam: Alert, Awake, CN II-XII Intact, Oriented x3 - Psychiatric Exam Psychiatric exam: Normal Affect, Normal Mood - Skin Skin Exam: Dry, Normal Color, Warm Assessment and Plan - Assessment and Plan (Free Text) Assessment: 1. Abdominal pain - resolved - CT of abdomen pelvis reviewed- 1. finding very likely 2/2 biopsy site - US of abdomen reviewed 1. The tail of the pancreas obscured by overlying bowel gas with the remainder unremarkable. 2. Cholelithiasis identified within the neck of the gallbladder with remaining the gallbladder unremarkable. No common bile duct dilatation appreciable. 3. [id number] left hydronephrosis with tram track echogenicity at the left renal pelvis - Abdominal X-ray Flat Plate reviewed 1. No active disease 2. Normal. No obstruction. No free air. - no surgical intervention at this time - reconsult if needed Will d/w attending
--- NOTE | 2017-01-14 09:40 | CP.PCM.PN ---
Subjective - Date & Time of Evaluation Date of Evaluation: 01/14/17 Time of Evaluation: 08:00 - Subjective Subjective: Comfortable, afebrile, not in distress. Objective - Vital Signs/Intake and Output Vital Signs (last 24 hours): Temp Pulse Resp BP Pulse Ox 98.5 F 77 17 150/88 95 01/13/17 06:00 01/13/17 06:00 01/13/17 06:00 01/13/17 06:00 01/13/17 06:00 Intake and Output: 01/14/17 01/14/17 06:59 18:59 Intake Total 1140 Balance 1140 - Medications Medications: Current Medications Acetaminophen (Tylenol 325mg Tab) 650 mg PO Q4H PRN PRN Reason: Fever >100.4 F Last Admin: 01/12/17 15:24 Dose: 650 mg Meropenem 1g/NS 100mL IVPB (Meropenem 1g/Ns 100ml Ivpb) 1 gm in 100 mls @ 100 mls/hr IVPB Q8 [facility] PRN Reason: Protocol Stop: 01/14/17 14:01 Last Admin: 01/14/17 05:43 Dose: 100 mls/hr Metronidazole (Flagyl) 500 mg in 100 mls @ 100 mls/hr IVPB Q8 [facility] PRN Reason: Protocol Last Admin: 01/14/17 05:43 Dose: 100 mls/hr Miconazole Nitrate (Monistat 7 Vaginal Cream) 0 ea VG HS [facility] Last Admin: 01/14/17 01:15 Dose: Not Given Morphine Sulfate (Morphine) 2 mg IVP Q4H PRN PRN Reason: Pain, severe (8-10) Last Admin: 01/09/17 06:17 Dose: 2 mg Ondansetron HCl (Zofran Inj) 4 mg IVP Q4H PRN PRN Reason: Nausea/Vomiting Last Admin: 01/12/17 06:30 Dose: 4 mg Oxycodone/Acetaminophen (Percocet 5/325 Mg Tab) 1 tab PO Q6H PRN PRN Reason: Pain, moderate (4-7) Stop: 01/15/17 11:38 Pantoprazole Sodium (Protonix Inj) 40 mg IVP Q12 [facility] Last Admin: 01/13/17 21:08 Dose: 40 mg Tamsulosin HCl (Flomax) 0.4 mg PO DAILY [facility] Last Admin: 01/13/17 09:24 Dose: 0.4 mg - Labs Labs: 01/14/17 07:00 01/13/17 07:30 PT 10.8 Seconds (9.9-11.8) 01/14/17 07:00 INR 1.00 (0.93-1.08) 01/14/17 07:00 APTT 28.1 Seconds (23.7-30.8) 01/14/17 07:00 - Constitutional Appears: Non-toxic, No Acute Distress - Head Exam Head Exam: NORMAL INSPECTION - ENT Exam ENT Exam: Mucous Membranes Moist - Neck Exam Neck Exam: absent: Meningismus - Respiratory Exam Respiratory Exam: Decreased Breath Sounds - Cardiovascular Exam Cardiovascular Exam: +S1, +S2 - GI/Abdominal Exam GI & Abdominal Exam: Soft. absent: Tenderness Assessment and Plan - Assessment and Plan (Free Text) Plan: Assessment sepsis due to ESBL-producing multidrug-resistant E. coli bacteremia associated with left ureteral obstruction and pyelonephritis S/P stent placement POD #10 HTN history of nephrolithiasis in the past Plan Continue Merrem to complete 10-14 days of therapy (day 10 today from day of procedure) - can d/c antibiotics after today Will continue to follow clinically while the patient is in the hospital
[2017-01-14 13:17] LABS: BASO # 0.03 K/mm3 (0.0-2.0); BASO % 0.4 % (0.0-3.0); EOS # 0.2 (0.0-0.7); EOS % 2.4 % (1.5-5.0); GRAN # 5.42 (1.4-6.5); GRAN % 67.9 % (50.0-68.0); HEMOGLOBIN 11.5 g/dL (12.0-16.0); LYMPH # 1.7 (1.2-3.4); LYMPH % 21.2 % (22.0-35.0); MEAN CORPUSCULAR HEMOGLOBIN 27.7 pg (25.0-35.0); MEAN CORPUSCULAR HGB CONC 32.2 g/dl (31.0-37.0); MEAN PLATELET VOLUME 9.3 fl (7.0-11.0); MONO # 0.7 (0.1-0.6); MONO % 8.1 % (1.0-6.0); PLATELET COUNT 264 10^3/uL (120.0-450.0); RBC 4.15 10^6/uL (3.5-6.1); RED CELL DISTRIBUTION WIDTH 14.2 % (11.5-14.5)
[2017-01-14 13:25] LABS: INR 1.02 (0.93-1.08); PARTIAL THROMBOPLASTIN TIME 27.5 Seconds (23.7-30.8)
--- NOTE | 2017-01-14 14:37 | CP.PCM.PN ---
Subjective - Date & Time of Evaluation Date of Evaluation: 01/14/17 Time of Evaluation: 07:45 - Subjective Subjective: Pt s/e bedside. Pt says diffuse abdominal pain has pretty much resolved. Spoke to Dr. Keene from Urology regarding her stent removal - he is scheduling her for next Friday, Jan 20. Pt is getting her EGD today. No further complaints. Objective - Vital Signs/Intake and Output Vital Signs (last 24 hours): Temp Pulse Resp BP Pulse Ox 98.4 F 73 20 140/90 97 01/14/17 06:00 01/14/17 06:00 01/14/17 06:00 01/14/17 06:00 01/14/17 06:00 Intake and Output: 01/14/17 01/14/17 06:59 18:59 Intake Total 1140 Balance 1140 - Medications Medications: Current Medications Acetaminophen (Tylenol 325mg Tab) 650 mg PO Q4H PRN PRN Reason: Fever >100.4 F Last Admin: 01/12/17 15:24 Dose: 650 mg Metronidazole (Flagyl) 500 mg in 100 mls @ 100 mls/hr IVPB Q8 [facility] PRN Reason: Protocol Last Admin: 01/14/17 13:19 Dose: 100 mls/hr Miconazole Nitrate (Monistat 7 Vaginal Cream) 0 ea VG HS [facility] Last Admin: 01/14/17 01:15 Dose: Not Given Morphine Sulfate (Morphine) 2 mg IVP Q4H PRN PRN Reason: Pain, severe (8-10) Last Admin: 01/09/17 06:17 Dose: 2 mg Ondansetron HCl (Zofran Inj) 4 mg IVP Q4H PRN PRN Reason: Nausea/Vomiting Last Admin: 01/12/17 06:30 Dose: 4 mg Oxycodone/Acetaminophen (Percocet 5/325 Mg Tab) 1 tab PO Q6H PRN PRN Reason: Pain, moderate (4-7) Stop: 01/15/17 11:38 Pantoprazole Sodium (Protonix Inj) 40 mg IVP Q12 [facility] Last Admin: 01/14/17 09:03 Dose: 40 mg Tamsulosin HCl (Flomax) 0.4 mg PO DAILY [facility] Last Admin: 01/14/17 09:03 Dose: 0.4 mg - Labs Labs: 01/14/17 13:13 01/14/17 07:00 PT 11.0 Seconds (9.9-11.8) 01/14/17 13:13 INR 1.02 (0.93-1.08) 01/14/17 13:13 APTT 27.5 Seconds (23.7-30.8) 01/14/17 13:13 - Additional Findings Additional findings: Phys Exam: VS as below Constitutional: a&o x 4, nad Head and Neck: neck supple, no jvd, trachea midline, carotid midline, no cervical/head mass Eyes: nakul, nonicteric sclera, eom intact ENT: auditory acuity grossly intact, throat not congested, no nasal deformity Cardio: rrr, no m/r/g, no carotid bruit, nml s1, s2 Pulm: no accessory muscle use, equal nml breath sounds bilaterally, ctab Abd: +diffuse abdominal tenderness; s/nd, nbs x 4 q, no palpable masses Derm: no rashes, no ulcers, no lesions Extr: no edema, no cyanosis, no calf tenderness, no lesions, no varicosities Neuro: cn II-XII grossly intact, ue and le 5/5 muscle strength bilaterally, no los ue, le bilaterally and core Assessment and Plan - Assessment and Plan (Free Text) Assessment: 66F presents with nephrolithiasis s/p stent placement, lesion on lesser curvature of stomach s/p benign biopsy, and UTI. Plan: 1. Nephrolithiasis s/p Cystogram with Retrograde Pyelogram Current - f/u urology recs - surgery performed 01/05/17, POD #3 Will need a second surgery to remove stent at a later date. - Pain Control: Morphine 2 Q4 - Tylenol for fevers - Tamsulosin daily - Strict Is and Os - Fluids NS @ 100 - Stent removal scheduled for next Friday - 01/20/17 2. UTI likely 2/2 to ureter obstruction - WBC dec to 5.9 01/06/17 - Blood and Urine Cultures: Gram negative rods - E. Coli - Procal: 10.2 - F/u with urology regarding fistulas because both b/c and u/c are growing E. Coli - IV abx - Meropenem - last day 3. Lesser curvature nodule measuring 2.1cm - Surgery c/s: recommend GI consult. As of 01/06/17, no surgical intervention. Will await biopsy - IR c/s for biopsy - Results: BENIGN lymphoid and adipose tissue - EGD for today 2/2 inflammation surrounding biopsy site. 4. GI/DVT Proph - Protnix/SCDs Case d/w Dr. Shaheen Roche, DO PGY-1
[2017-01-14] MEDS ORDERED: Lidocaine 1% Inj (20ml) ONE (15:58)
[2017-01-14] MEDS ORDERED: Propofol 10 mg/ml Inj (20 ML) ONE (15:58)
[2017-01-15 06:20] LABS: MEAN CELL VOLUME 86.4 fl (80.0-105.0); MEAN CORPUSCULAR HEMOGLOBIN 27.3 pg (25.0-35.0); MEAN CORPUSCULAR HGB CONC 31.6 g/dl (31.0-37.0); MEAN PLATELET VOLUME 10.1 fl (7.0-11.0); RBC 4.03 10^6/uL (3.5-6.1); RED CELL DISTRIBUTION WIDTH 14.5 % (11.5-14.5)
[2017-01-15] MEDS: metroNIDAZOLE IV 500 mg/100 ml 500 MG/100 ML BAG IVPB SCH ×3 (06:41→21:37)
[2017-01-15] MEDS: Sodium Chloride 0.9% 1,000 ML IV SCH ×2 (06:41→06:42)
[2017-01-15 06:53] LABS: ALB/GLOB RATIO 1.2 (1.1-1.8); ALBUMIN 3.8 g/dL (3.0-4.8); ALT/SGPT 161 U/L (7-56); AST/SGOT 124 U/L (15-39); BLOOD UREA NITROGEN 12 mg/dL (7-21); CALCIUM 9.4 mg/dL (8.4-10.5); GFR AFRICAN-AMERICAN > 60; GFR NON-AFRICAN AMERICAN > 60
[2017-01-15] MEDS: Nystatin 100,000 Units/gm Topical Pow(15 gm) TOP SCH ×2 (10:41→17:04)
--- NOTE | 2017-01-15 12:02 | PN ---
DATE: GI FOLLOWUP SUBJECTIVE: Seen and examined at the bedside earlier today. The patient had an endoscopy yesterday for further evaluation of a possible perforation. The endoscopy showed a normal stomach and duodenum. No endoscopic evidence of ulceration in the stomach. No biopsies were obtained. The patient denies any nausea. Her abdominal pain is improved. She is tolerating her clear liquid diet. PHYSICAL EXAMINATION VITAL SIGNS: Temperature 98.5, blood pressure 138/80, pulse 78, respirations 20, 96 room air. HEENT: Sclera is anicteric. NECK: Supple. CARDIAC: S1 and S2. LUNGS: With decreased breath sounds at the bases but good air entry. ABDOMEN: Nontender. NEUROLOGIC: Awake, alert, and oriented. LABORATORY DATA: WBC 8.0, H and H is 11.0 and 34.8, platelets 310. Sodium 138, potassium 4.4, BUN is 12, creatinine 0.6. Total bilirubin is 0.6, AST 124, ALT 161, alkaline phosphatase is 76. ASSESSMENT AND PLAN: A 66-year-old female with nephrolithiasis, status post stent placement, status post endoscopy. No endoscopic ulceration were seen. The stomach and duodenum were normal. The patient with urinary tract infection and noted to have elevated liver enzymes, could be medication related. We will continue to follow. Continue PPI. The patient is on IV antibiotics as per ID also consider advancing diet as tolerated. Seen and discussed with Dr. Devlin. AYANA Caballero
--- NOTE | 2017-01-15 15:00 | CP.PCM.PN ---
Subjective - Date & Time of Evaluation Date of Evaluation: 01/15/17 Time of Evaluation: 08:15 - Subjective Subjective: Pt s/e bedside. No complaints - ready for d/c after stent removal tomorrow Objective - Vital Signs/Intake and Output Vital Signs (last 24 hours): Temp Pulse Resp BP Pulse Ox 98.5 F 78 20 138/80 96 01/15/17 08:57 01/15/17 08:57 01/15/17 08:57 01/15/17 08:57 01/15/17 08:57 Intake and Output: 01/15/17 01/15/17 06:59 18:59 Intake Total 900 Balance 900 - Medications Medications: Current Medications Acetaminophen (Tylenol 325mg Tab) 650 mg PO Q4H PRN PRN Reason: Fever >100.4 F Last Admin: 01/12/17 15:24 Dose: 650 mg Metronidazole (Flagyl) 500 mg in 100 mls @ 100 mls/hr IVPB Q8 [facility]OS[facility] PRN Reason: Protocol Last Admin: 01/15/17 14:35 Dose: 100 mls/hr Sodium Chloride (Sodium Chloride 0.9%) 1,000 mls @ 100 mls/hr IV .Q10H [facility] Last Admin: 01/15/17 06:42 Dose: Not Given Miconazole Nitrate (Monistat 7 Vaginal Cream) 0 ea VG HS [facility] Last Admin: 01/14/17 22:48 Dose: 1 applic Nystatin (Nystop Topical Powder) 0 gm TOP BID [facility] Last Admin: 01/15/17 10:41 Dose: 1 applic Ondansetron HCl (Zofran Inj) 4 mg IVP Q4H PRN PRN Reason: Nausea/Vomiting Last Admin: 01/12/17 06:30 Dose: 4 mg Pantoprazole Sodium (Protonix Inj) 40 mg IVP Q12 [facility] Last Admin: 01/15/17 09:04 Dose: Not Given Tamsulosin HCl (Flomax) 0.4 mg PO DAILY [facility] Last Admin: 01/15/17 09:04 Dose: 0.4 mg - Labs Labs: 01/15/17 05:15 01/15/17 05:15 PT 11.0 Seconds (9.9-11.8) 01/14/17 13:13 INR 1.02 (0.93-1.08) 01/14/17 13:13 APTT 27.5 Seconds (23.7-30.8) 01/14/17 13:13 - Additional Findings Additional findings: Phys Exam: VS as below Constitutional: a&o x 4, nad Head and Neck: neck supple, no jvd, trachea midline, carotid midline, no cervical/head mass Eyes: nakul, nonicteric sclera, eom intact ENT: auditory acuity grossly intact, throat not congested, no nasal deformity Cardio: rrr, no m/r/g, no carotid bruit, nml s1, s2 Pulm: no accessory muscle use, equal nml breath sounds bilaterally, ctab Abd: +diffuse abdominal tenderness; s/nd, nbs x 4 q, no palpable masses Derm: no rashes, no ulcers, no lesions Extr: no edema, no cyanosis, no calf tenderness, no lesions, no varicosities Neuro: cn II-XII grossly intact, ue and le 5/5 muscle strength bilaterally, no los ue, le bilaterally and core Assessment and Plan - Assessment and Plan (Free Text) Assessment: 66F presents with nephrolithiasis s/p stent placement, lesion on lesser curvature of stomach s/p benign biopsy, and UTI. Plan: 1. Nephrolithiasis s/p Cystogram with Retrograde Pyelogram Current - f/u urology recs - surgery performed 01/05/17, POD #3 Will need a second surgery to remove stent at a later date. - Pain Control: Morphine 2 Q4 - Tylenol for fevers - Tamsulosin daily - Strict Is and Os - Fluids NS @ 100 - Stent removal scheduled for tomorrow - 01/16/17 2. UTI likely 2/2 to ureter obstruction - WBC dec to 5.9 01/06/17 - Blood and Urine Cultures: Gram negative rods - E. Coli - Procal: 10.2 - F/u with urology regarding fistulas because both b/c and u/c are growing E. Coli - IV abx - Meropenem - finished 3. Lesser curvature nodule measuring 2.1cm - Surgery c/s: recommend GI consult. As of 01/06/17, no surgical intervention. Will await biopsy - IR c/s for biopsy - Results: BENIGN lymphoid and adipose tissue - EGD for today 2/2 inflammation surrounding biopsy site - was negative. - Patient needs to f/u with a GI with EUS to r/o malignancy 4. GI/DVT Proph - Protnix/SCDs
[2017-01-15] MEDS: Miconazole 2% Vaginal Cream(45 gm) VG SCH (21:36)
--- NOTE | 2017-01-15 23:11 | CP.PCM.PN ---
Subjective - Date & Time of Evaluation Date of Evaluation: 01/15/17 Time of Evaluation: 17:30 Objective - Vital Signs/Intake and Output Vital Signs (last 24 hours): Temp Pulse Resp BP Pulse Ox 98.9 F 76 20 129/78 96 01/15/17 16:42 01/15/17 16:42 01/15/17 16:42 01/15/17 16:42 01/15/17 16:42 Intake and Output: 01/15/17 01/16/17 18:59 06:59 Intake Total 420 Balance 420 - Medications Medications: Current Medications Acetaminophen (Tylenol 325mg Tab) 650 mg PO Q4H PRN PRN Reason: Fever >100.4 F Last Admin: 01/12/17 15:24 Dose: 650 mg Metronidazole (Flagyl) 500 mg in 100 mls @ 100 mls/hr IVPB Q8 [facility]IG[facility]EL PRN Reason: Protocol Last Admin: 01/15/17 21:37 Dose: 100 mls/hr Miconazole Nitrate (Monistat 7 Vaginal Cream) 0 ea VG HS [facility] Last Admin: 01/15/17 21:36 Dose: 1 applic Nystatin (Nystop Topical Powder) 0 gm TOP BID [facility] Last Admin: 01/15/17 17:04 Dose: 1 applic Ondansetron HCl (Zofran Inj) 4 mg IVP Q4H PRN PRN Reason: Nausea/Vomiting Last Admin: 01/12/17 06:30 Dose: 4 mg Pantoprazole Sodium (Protonix Inj) 40 mg IVP Q12 [facility] Last Admin: 01/15/17 21:36 Dose: 40 mg Tamsulosin HCl (Flomax) 0.4 mg PO DAILY [facility] Last Admin: 01/15/17 09:04 Dose: 0.4 mg - Labs Labs: 01/15/17 05:15 01/15/17 05:15 PT 11.0 Seconds (9.9-11.8) 01/14/17 13:13 INR 1.02 (0.93-1.08) 01/14/17 13:13 APTT 27.5 Seconds (23.7-30.8) 01/14/17 13:13 Assessment and Plan - Assessment and Plan (Free Text) Assessment: This patient was seen and evaluated with the Ara Gonzales APN. Patient was feeling better. Patient had an EGD which was normal stomach. The gastrohepatic ligament could be the con seen in the CT.
[2017-01-16] MEDS: metroNIDAZOLE IV 500 mg/100 ml 500 MG/100 ML BAG IVPB SCH (05:44)
[2017-01-16 07:25] LABS: HEMOGLOBIN 11.3 g/dL (12.0-16.0); MEAN CELL VOLUME 86.1 fl (80.0-105.0); MEAN CORPUSCULAR HEMOGLOBIN 27.1 pg (25.0-35.0); MEAN CORPUSCULAR HGB CONC 31.5 g/dl (31.0-37.0); MEAN PLATELET VOLUME 10.2 fl (7.0-11.0); RBC 4.17 10^6/uL (3.5-6.1); RED CELL DISTRIBUTION WIDTH 14.5 % (11.5-14.5); WHITE BLOOD COUNT 7.6 10^3/ul (4.5-11.0)
[2017-01-16 07:38] LABS: ALB/GLOB RATIO 1.2 (1.1-1.8); ALBUMIN 3.7 g/dL (3.0-4.8); ALT/SGPT 141 U/L (7-56); AST/SGOT 112 U/L (15-39); BLOOD UREA NITROGEN 15 mg/dL (7-21); CALCIUM 9.2 mg/dL (8.4-10.5); GFR AFRICAN-AMERICAN > 60; GFR NON-AFRICAN AMERICAN > 60
[2017-01-16 08:31] LABS: INR 1.04 (0.93-1.08); PARTIAL THROMBOPLASTIN TIME 28.9 Seconds (23.7-30.8); PROTHROMBIN TIME 11.2 Seconds (9.9-11.8)
--- NOTE | 2017-01-16 08:55 | CP.PCM.PN ---
<Ara Gonzales - Last Filed: 01/16/17 10:22> Subjective - Date & Time of Evaluation Date of Evaluation: 01/16/17 Time of Evaluation: 08:35 - Subjective Subjective: S&E at bedside, chart reviewed. No N/V or abdominal pain. HAd BM yesterday that was formed, no blood noted. Tolerating oral intake. Went for abdominal US yesterday. No acute overnight events. Objective - Vital Signs/Intake and Output Vital Signs (last 24 hours): Temp Pulse Resp BP Pulse Ox 98.9 F 76 20 129/78 96 01/15/17 16:42 01/15/17 16:42 01/15/17 16:42 01/15/17 16:42 01/15/17 16:42 Intake and Output: 01/16/17 01/16/17 06:59 18:59 Intake Total 420 Balance 420 - Medications Medications: Current Medications Acetaminophen (Tylenol 325mg Tab) 650 mg PO Q4H PRN PRN Reason: Fever >100.4 F Last Admin: 01/12/17 15:24 Dose: 650 mg Metronidazole (Flagyl) 500 mg in 100 mls @ 100 mls/hr IVPB Q8 [facility]OS[facility]IGUEL PRN Reason: Protocol Last Admin: 01/16/17 05:44 Dose: 100 mls/hr Miconazole Nitrate (Monistat 7 Vaginal Cream) 0 ea VG HS [facility] Last Admin: 01/15/17 21:36 Dose: 1 applic Nystatin (Nystop Topical Powder) 0 gm TOP BID [facility] Last Admin: 01/15/17 17:04 Dose: 1 applic Ondansetron HCl (Zofran Inj) 4 mg IVP Q4H PRN PRN Reason: Nausea/Vomiting Last Admin: 01/12/17 06:30 Dose: 4 mg Pantoprazole Sodium (Protonix Inj) 40 mg IVP Q12 [facility] Last Admin: 01/15/17 21:36 Dose: 40 mg Tamsulosin HCl (Flomax) 0.4 mg PO DAILY [facility] Last Admin: 01/15/17 09:04 Dose: 0.4 mg - Labs Labs: 01/16/17 07:00 01/16/17 07:00 PT 11.2 Seconds (9.9-11.8) 01/16/17 08:00 INR 1.04 (0.93-1.08) 01/16/17 08:00 APTT 28.9 Seconds (23.7-30.8) 01/16/17 08:00 - Constitutional Appears: No Acute Distress - Head Exam Head Exam: NORMOCEPHALIC - Eye Exam Eye Exam: Normal appearance. absent: Scleral icterus - ENT Exam ENT Exam: Mucous Membranes Moist - Neck Exam Neck Exam: Normal Inspection - Respiratory Exam Respiratory Exam: Clear to Ausculation Bilateral, NORMAL BREATHING PATTERN. absent: Respiratory Distress - Cardiovascular Exam Cardiovascular Exam: +S1, +S2 - GI/Abdominal Exam GI & Abdominal Exam: Soft, Normal Bowel Sounds. absent: Guarding, Tenderness, Organomegaly, Rebound - Extremities Exam Extremities Exam: Normal Capillary Refill. absent: Calf Tenderness, Pedal Edema - Neurological Exam Neurological Exam: Alert, Awake, Oriented x3 - Skin Skin Exam: Dry, Warm Assessment and Plan - Assessment and Plan (Free Text) Assessment: ASSESSMENT: Nephrolithiasis, s/p stent placement UTI, (+) E coli Gastro hepatic lymph node, s/p BX, benign lymph tissue/fibroadipose nodule S/P EGD, reveal normal stomach &duodenum Elevated LFT, s/p abdominal US, (+) gallstone,? fatty liver, ? medication induced, improving PLAN: for stent removal today trend LFT FU hepatitis panel on Flagyl diet as tolerated continue PPI reviewed abdominal ultrasound Seen and discussed with Dr. Devlin. <Isaura Devlin V - Last Filed: 01/16/17 23:14> Objective - Vital Signs/Intake and Output Vital Signs (last 24 hours): Temp Pulse Resp BP Pulse Ox 98.7 F 79 18 124/72 100 01/16/17 16:36 01/16/17 16:36 01/16/17 16:36 01/16/17 16:36 01/16/17 16:36 Intake and Output: 01/16/17 01/17/17 18:59 06:59 Intake Total 0 780 Output Total 500 Balance 0 280 - Medications Medications: Current Medications Acetaminophen (Tylenol 325mg Tab) 650 mg PO Q4H PRN PRN Reason: Fever >100.4 F Last Admin: 01/12/17 15:24 Dose: 650 mg Miconazole Nitrate (Monistat 7 Vaginal Cream) 0 ea VG HS [facility] Last Admin: 01/16/17 21:23 Dose: Not Given Morphine Sulfate (Morphine) 2 mg IVP Q15M PRN PRN Reason: Pain, moderate (4-7) Morphine Sulfate (Morphine) 2 mg IVP Q6H PRN PRN Reason: Pain, moderate (4-7) Last Admin: 01/16/17 16:59 Dose: 2 mg Nystatin (Nystop Topical Powder) 0 gm TOP BID [facility] Last Admin: 01/16/17 10:24 Dose: 1 applic Ondansetron HCl (Zofran Inj) 4 mg IVP Q4H PRN PRN Reason: Nausea/Vomiting Last Admin: 01/12/17 06:30 Dose: 4 mg Oxycodone HCl (Oxycodone Immediate Release Tab) 10 mg PO Q6H PRN PRN Reason: Pain, severe (8-10) Pantoprazole Sodium (Protonix Ec Tab) 40 mg PO 0600 [facility] Tamsulosin HCl (Flomax) 0.4 mg PO DAILY [facility] Last Admin: 01/16/17 10:24 Dose: 0.4 mg - Labs Labs: 01/16/17 07:00 01/16/17 07:00 PT 11.2 Seconds (9.9-11.8) 01/16/17 08:00 INR 1.04 (0.93-1.08) 01/16/17 08:00 APTT 28.9 Seconds (23.7-30.8) 01/16/17 08:00 Attending/Attestation - Attestation I have personally seen and examined this patient.: Yes I have fully participated in the care of the patient.: Yes I have reviewed all pertinent clinical information, including history, physical exam and plan: Yes Notes (Text): p
--- NOTE | 2017-01-16 10:12 | US ---
HISTORY: Elevated LFT COMPARISON: None. TECHNIQUE: Sonographic evaluation of the abdomen. FINDINGS: LIVER: Measures 15.0 cm. Diffusely increased echogenicity of the liver parenchyma. Consistent with fatty infiltration. Smooth contour. No focal mass. No biliary ductal dilatation. GALLBLADDER: Cholelithiasis. No mural thickening or pericholecystic fluid. COMMON BILE DUCT: Measures 5 mm. No stones. No dilatation. PANCREAS: Unremarkable as visualized. No mass. No ductal dilatation. RIGHT KIDNEY: Measures 10.1cm. Normal echogenicity. No calculus, mass, or hydronephrosis. LEFT KIDNEY: Measures 11.1cm. Hydronephrosis noted. Proximal end of left ureteral stent demonstrated. No mass or calculus. SPLEEN: Normal in size and contour. No mass. AORTA: No aneurysmal dilatation. IVC: Unremarkable. OTHER FINDINGS: None. IMPRESSION: Left hydronephrosis. Left ureteral stent. Fatty infiltration of the liver. Cholelithiasis without evidence of cholecystitis.
[2017-01-16] MEDS: Nystatin 100,000 Units/gm Topical Pow(15 gm) TOP SCH (10:24)
[2017-01-16 12:33] LABS: HEPATITIS B SURFACE AG NEGATIVE (NEGATIVE)
[2017-01-16 12:39] LABS: HEPATITIS A IGM NEGATIVE (NEGATIVE); HEPATITIS B CORE AB NEGATIVE (NEGATIVE)
[2017-01-16] MEDS ORDERED: Propofol 10 mg/ml Inj (20 ML) ONE (12:49)
[2017-01-16] MEDS ORDERED: Midazolam 2 MG/2 ML VIAL ONE (12:49)
[2017-01-16 12:51] LABS: HEPATITIS C ANTIBODY NEGATIVE (NEGATIVE)
[2017-01-16] MEDS ORDERED: Lactated Ringer's 1,000 ML IV SCH (12:52)
[2017-01-16] MEDS ORDERED: Morphine 2 mg/ml ISec IVP PRN ×2 (12:52→15:50)
[2017-01-16] MEDS ORDERED: Gentamicin 80 mg/2mL Inj. ONE (13:21)
[2017-01-16] MEDS ORDERED: Iohexol 240 (50 ml) ONE (13:51)
[2017-01-16] MEDS ORDERED: HYDROmorphone 0.5 mg/0.5 ml ISec IVP PRN (14:11)
[2017-01-16] MEDS ORDERED: Sodium Chloride 0.9% 1,000 ML IV SCH (14:15)
--- NOTE | 2017-01-16 14:47 | CP.PCM.PN ---
Subjective - Date & Time of Evaluation Date of Evaluation: 01/16/17 Time of Evaluation: 08:05 - Subjective Subjective: Comfortable, not in distress, afebrile. Objective - Vital Signs/Intake and Output Vital Signs (last 24 hours): Temp Pulse Resp BP Pulse Ox 97.7 F 72 16 120/66 98 01/16/17 14:10 01/16/17 14:25 01/16/17 14:25 01/16/17 14:25 01/16/17 14:25 Intake and Output: 01/16/17 01/16/17 06:59 18:59 Intake Total 420 0 Balance 420 0 - Medications Medications: Current Medications Acetaminophen (Tylenol 325mg Tab) 650 mg PO Q4H PRN PRN Reason: Fever >100.4 F Last Admin: 01/12/17 15:24 Dose: 650 mg Hydromorphone HCl (Dilaudid) 0.5 mg IVP Q15M PRN PRN Reason: Pain, moderate (4-7) Stop: 01/16/17 16:11 Metronidazole (Flagyl) 500 mg in 100 mls @ 100 mls/hr IVPB Q8 [facility]OS[facility] MIGUEL PRN Reason: Protocol Last Admin: 01/16/17 05:44 Dose: 100 mls/hr Lactated Ringer's (Lactated Ringer's) 1,000 mls @ 75 mls/hr IV .[id number] [facility] Stop: 01/16/17 14:53 Sodium Chloride (Sodium Chloride 0.9%) 1,000 mls @ 75 mls/hr IV .[id number] [facility] Stop: 01/16/17 16:16 Miconazole Nitrate (Monistat 7 Vaginal Cream) 0 ea VG HS [facility] Last Admin: 01/15/17 21:36 Dose: 1 applic Morphine Sulfate (Morphine) 2 mg IVP Q15M PRN PRN Reason: Pain, moderate (4-7) Nystatin (Nystop Topical Powder) 0 gm TOP BID [facility] Last Admin: 01/16/17 10:24 Dose: 1 applic Ondansetron HCl (Zofran Inj) 4 mg IVP Q4H PRN PRN Reason: Nausea/Vomiting Last Admin: 01/12/17 06:30 Dose: 4 mg Ondansetron HCl (Zofran Inj) 4 mg IVP ONCE PRN PRN Reason: Nausea/Vomiting Stop: 01/16/17 16:12 Pantoprazole Sodium (Protonix Inj) 40 mg IVP Q12 [facility] Last Admin: 01/16/17 10:24 Dose: 40 mg Tamsulosin HCl (Flomax) 0.4 mg PO DAILY [facility] Last Admin: 01/16/17 10:24 Dose: 0.4 mg - Labs Labs: 01/16/17 07:00 01/16/17 07:00 PT 11.2 Seconds (9.9-11.8) 01/16/17 08:00 INR 1.04 (0.93-1.08) 01/16/17 08:00 APTT 28.9 Seconds (23.7-30.8) 01/16/17 08:00 - Constitutional Appears: Non-toxic, No Acute Distress - Head Exam Head Exam: NORMAL INSPECTION - ENT Exam ENT Exam: Mucous Membranes Moist - Neck Exam Neck Exam: absent: Lymphadenopathy, Meningismus - Respiratory Exam Respiratory Exam: Decreased Breath Sounds - Cardiovascular Exam Cardiovascular Exam: +S1, +S2 - GI/Abdominal Exam GI & Abdominal Exam: Soft. absent: Tenderness Assessment and Plan - Assessment and Plan (Free Text) Plan: Assessment sepsis due to ESBL-producing multidrug-resistant E. coli bacteremia associated with left ureteral obstruction and pyelonephritis S/P stent placement POD #10 HTN history of nephrolithiasis in the past Plan completed Merrem - will continue to monitor the patient off antibiotics since she is at risk for nosocomial infections
--- NOTE | 2017-01-16 16:05 | RAD ---
PROCEDURE: Fluoroscopy up to 1 hour HISTORY: STENT REMOVAL/LASER LITHOTRIPSY/STENT INSERTION (LEFT) COMPARISON: TECHNIQUE: Fluoroscopy was provided in the operating room. 43 seconds of fluoroscopy time. Eleven images were submitted FINDINGS: The study shows removal of the left ureteral stent with placement of wires and ureteroscopy. The final film show replacement of the stent. IMPRESSION: As above
--- NOTE | 2017-01-16 17:44 | CP.PCM.PN ---
Subjective - Date & Time of Evaluation Date of Evaluation: 01/16/17 Time of Evaluation: 06:45 - Subjective Subjective: Pt s/e at bedside. Pt ready for stent removal surgery today. No other complaints Objective - Vital Signs/Intake and Output Vital Signs (last 24 hours): Temp Pulse Resp BP Pulse Ox 98.7 F 79 18 124/72 100 01/16/17 16:36 01/16/17 16:36 01/16/17 16:36 01/16/17 16:36 01/16/17 16:36 Intake and Output: 01/16/17 01/16/17 06:59 18:59 Intake Total 420 0 Balance 420 0 - Medications Medications: Current Medications Acetaminophen (Tylenol 325mg Tab) 650 mg PO Q4H PRN PRN Reason: Fever >100.4 F Last Admin: 01/12/17 15:24 Dose: 650 mg Miconazole Nitrate (Monistat 7 Vaginal Cream) 0 ea VG HS [facility] Last Admin: 01/15/17 21:36 Dose: 1 applic Morphine Sulfate (Morphine) 2 mg IVP Q15M PRN PRN Reason: Pain, moderate (4-7) Morphine Sulfate (Morphine) 2 mg IVP Q6H PRN PRN Reason: Pain, moderate (4-7) Last Admin: 01/16/17 16:59 Dose: 2 mg Nystatin (Nystop Topical Powder) 0 gm TOP BID [facility] Last Admin: 01/16/17 10:24 Dose: 1 applic Ondansetron HCl (Zofran Inj) 4 mg IVP Q4H PRN PRN Reason: Nausea/Vomiting Last Admin: 01/12/17 06:30 Dose: 4 mg Pantoprazole Sodium (Protonix Ec Tab) 40 mg PO 0600 [facility] Tamsulosin HCl (Flomax) 0.4 mg PO DAILY [facility] Last Admin: 01/16/17 10:24 Dose: 0.4 mg - Labs Labs: 01/16/17 07:00 01/16/17 07:00 PT 11.2 Seconds (9.9-11.8) 01/16/17 08:00 INR 1.04 (0.93-1.08) 01/16/17 08:00 APTT 28.9 Seconds (23.7-30.8) 01/16/17 08:00 - Additional Findings Additional findings: Phys Exam: VS as below Constitutional: a&o x 4, nad Head and Neck: neck supple, no jvd, trachea midline, carotid midline, no cervical/head mass Eyes: nakul, nonicteric sclera, eom intact ENT: auditory acuity grossly intact, throat not congested, no nasal deformity Cardio: rrr, no m/r/g, no carotid bruit, nml s1, s2 Pulm: no accessory muscle use, equal nml breath sounds bilaterally, ctab Abd: +diffuse abdominal tenderness; s/nd, nbs x 4 q, no palpable masses Derm: no rashes, no ulcers, no lesions Extr: no edema, no cyanosis, no calf tenderness, no lesions, no varicosities Neuro: cn II-XII grossly intact, ue and le 5/5 muscle strength bilaterally, no los ue, le bilaterally and core Assessment and Plan - Assessment and Plan (Free Text) Assessment: 66F presents with nephrolithiasis s/p stent placement, lesion on lesser curvature of stomach s/p benign biopsy, and UTI. Plan: 1. Nephrolithiasis s/p Cystogram with Retrograde Pyelogram Current - f/u urology recs - surgery performed 01/05/17, POD #10 Stent removal scheduled for today, 01/16 - Pain Control: Morphine 2 Q4 - Tylenol for fevers - Tamsulosin daily - Strict Is and Os - Fluids NS @ 100 - Stent removal scheduled for tomorrow - 01/16/17 2. UTI likely 2/2 to ureter obstruction - WBC dec to 5.9 01/06/17 - Blood and Urine Cultures: Gram negative rods - E. Coli - Procal: 10.2 - F/u with urology regarding fistulas because both b/c and u/c are growing E. Coli - IV abx - Meropenem - finished 3. Lesser curvature nodule measuring 2.1cm - Surgery c/s: recommend GI consult. As of 01/06/17, no surgical intervention. Will await biopsy - IR c/s for biopsy - Results: BENIGN lymphoid and adipose tissue - EGD for today 2/2 inflammation surrounding biopsy site - was negative. - Patient needs to f/u with a GI with EUS to r/o malignancy in gastrohepatic ligament 4. GI/DVT Proph - Protnix/SCDs
[2017-01-16] MEDS ORDERED: Morphine 2 mg/ml ISec IVP STA (20:33)
[2017-01-16] MEDS: Miconazole 2% Vaginal Cream(45 gm) VG SCH (21:23)
[2017-01-17] MEDS: oxyCODONE 10 mg Immediate Release Tab PO PRN ×2 (01:03→09:12)
--- NOTE | 2017-01-17 03:04 | OP ---
PROCEDURE DATE: 01/16/2017 PREOPERATIVE DIAGNOSIS: Left ureteral calculus. POSTOPERATIVE DIAGNOSIS: Left ureteral calculus. PROCEDURE: Cystoscopy, removal of left ureteral stent, left uteroscopy, laser lithotripsy of the ureteral calculus, stone extraction, and reinsertion of left ureteral stent. ATTENDING SURGEON: Dr. Watson Keene. TYPE OF ANESTHESIA: General. SPECIMENS: Stone fragments was sent to pathology. DRAINS: A 6 x 24 left ureteral stent. COMPLICATIONS: There were none. OPERATIVE FINDINGS: After informed consent was obtained, the patient was taken to the operating room and placed in the operating table and anesthesia was administered. The patient was then placed in the dorsal lithotomy position and prepped and draped in the usual sterile fashion. Intravenous antibiotics were given prior to the start of the procedure. A 21-Slovenian cystoscope was then passed into the patient's bladder under direct vision and a full survey inspection was performed. There was stent noted exiting from the left ureteral orifice. There were no bladder tumors or stones noted. At this point, a grasping forceps was passed, the stent was grasped and withdrawn through the urethral meatus. The scope was then re-passed and a central wire was obtained and passed through the cystoscope and guided into the left ureteral orifice. On fluoroscopy, no obvious calculus was noted. The guidewire was then advanced under fluoroscopic guidance up the ureter along the side of the stent until it coiled in the upper collecting system. At this point, the stent was grasped at the urethral meatus and withdrawn without difficulty. It was removed from the patient and then from the operative field. Again on fluoroscopy, no obvious calcifications were seen along the ureter. At this point, a 8-Slovenian semi-rigid ureteroscope was passed into the bladder under direct vision and guided into the left ureteral orifice. The uteroscope was then advanced proximally under direct vision. In the upper portion of the lower ureter, a large impacted yellowish gillian stone was visualized. There was moderate amount of ureteral edema noted. At this point, a holmium laser fiber was obtained, it was passed through the ureteroscope and under direct vision, fragmentation of the stone was begun. The stone was able to be broken. The pieces were able to be manipulated off of the wall and further fragmented. After the stone was well fragmented, the ureteroscope was able to be passed beyond this area and up the ureter without difficulty. The mid and upper ureter were somewhat dilated. The ureteroscope was able to be passed into the renal pelvis. There were no other stones or abnormalities noted and at this point, the ureteroscope was then withdrawn under direct vision. There were multiple small stone fragments noted remaining. At this point, the laser fiber was removed and a grasping forceps was passed through the ureteroscope. The large pieces of the stone were then grasped and were withdrawn. A ureteroscope was passed four times back into the ureter. Pieces of stone were grasped and withdrawn. On the last pass, the uteroscope was advanced up to the renal pelvis without difficulty. There were no large stone fragments noted. There were few tiny fragments smaller than 1 mm noted. The area where the stone had then located was examined. There was moderate edema where the stone had been sitting and decision was made to replace a stent. A uteroscope was withdrawn. The cystoscope was re-passed while backloading a guidewire. An open-ended ureteral catheter was advanced over the guidewire into the ureter and contrast was instilled into the system through the open-ended catheter. There was no evidence of extravasation noted. The guidewire was re-passed and advanced up the ureter until it coiled in the upper collecting system. A 6 x 24 stent was then passed through the cystoscope over the guidewire into the left ureter and advanced up the ureter under direct vision under fluoroscopic guidance until it was in at the appropriate position. At this point, the guidewire was removed. A coil was seen in the upper collecting system on fluoroscopy, a coil was in the bladder on cystoscopy. A string was left in place on the stents so it could be removed in a day or so. At this point, the procedure was completed, the bladder was drained, the cystoscope was removed. The patient tolerated the procedure well. She was taken to the emergency room, awake and in a stable condition. Watson Keene MD
[2017-01-17] MEDS ORDERED: Pantoprazole 40 mg EC Tab PO SCH (06:00)
[2017-01-17 07:55] LABS: BASO # 0.04 K/mm3 (0.0-2.0); BASO % 0.5 % (0.0-3.0); EOS # 0.2 (0.0-0.7); EOS % 1.7 % (1.5-5.0); GRAN % 72.2 % (50.0-68.0); HEMOGLOBIN 11.1 g/dL (12.0-16.0); LYMPH # 1.5 (1.2-3.4); LYMPH % 17.7 % (22.0-35.0); MEAN CELL VOLUME 86.9 fl (80.0-105.0); MEAN CORPUSCULAR HEMOGLOBIN 27.3 pg (25.0-35.0); MEAN CORPUSCULAR HGB CONC 31.4 g/dl (31.0-37.0); MEAN PLATELET VOLUME 10.1 fl (7.0-11.0); MONO # 0.7 (0.1-0.6); MONO % 7.9 % (1.0-6.0); PLATELET COUNT 284 10^3/uL (120.0-450.0); RBC 4.06 10^6/uL (3.5-6.1); RED CELL DISTRIBUTION WIDTH 14.6 % (11.5-14.5); WHITE BLOOD COUNT 8.7 10^3/ul (4.5-11.0)
[2017-01-17 08:08] LABS: ALB/GLOB RATIO 1.2 (1.1-1.8); ALBUMIN 3.9 g/dL (3.0-4.8); ALT/SGPT 138 U/L (7-56); AST/SGOT 101 U/L (15-39); BLOOD UREA NITROGEN 18 mg/dL (7-21); CALCIUM 9.1 mg/dL (8.4-10.5); GFR AFRICAN-AMERICAN > 60; GFR NON-AFRICAN AMERICAN > 60
[2017-01-17 08:14] LABS: % IRON SATURATION 19 % (20-55); IRON 68 ug/dL (45-180); TOTAL IRON BINDING CAPACITY 360 ug/dL (265-497)
[2017-01-17 08:20] VITALS: BP 117/42; PULSE 72; RESP 22; TEMP 98.1; O2SAT 96
[2017-01-17] MEDS: Nystatin 100,000 Units/gm Topical Pow(15 gm) TOP SCH (09:13)
--- NOTE | 2017-01-17 09:47 | CP.PCM.PN ---
Subjective - Date & Time of Evaluation Date of Evaluation: 01/17/17 Time of Evaluation: 08:25 - Subjective Subjective: Seen and examined at the bedside this morning, chart was reviewed. Patient had left stent removal yesterday and stent replacement. She does report having some hematuria and some mild dysuria, no reports of fever, chills, nausea, vomiting, or abdominal pain. Did have a bowel movement yesterday, no diarrhea. Tolerating oral intake. Objective - Vital Signs/Intake and Output Vital Signs (last 24 hours): Temp Pulse Resp BP Pulse Ox 98.1 F 72 22 117/42 L 96 01/17/17 08:18 01/17/17 08:18 01/17/17 08:18 01/17/17 08:18 01/17/17 08:18 Intake and Output: 01/17/17 01/17/17 06:59 18:59 Intake Total 1020 Output Total 500 Balance 520 - Medications Medications: Current Medications Acetaminophen (Tylenol 325mg Tab) 650 mg PO Q4H PRN PRN Reason: Fever >100.4 F Last Admin: 01/12/17 15:24 Dose: 650 mg Miconazole Nitrate (Monistat 7 Vaginal Cream) 0 ea VG HS [facility] Last Admin: 01/16/17 21:23 Dose: Not Given Morphine Sulfate (Morphine) 2 mg IVP Q15M PRN PRN Reason: Pain, moderate (4-7) Morphine Sulfate (Morphine) 2 mg IVP Q6H PRN PRN Reason: Pain, moderate (4-7) Last Admin: 01/16/17 16:59 Dose: 2 mg Nystatin (Nystop Topical Powder) 0 gm TOP BID [facility] Last Admin: 01/17/17 09:13 Dose: 1 applic Ondansetron HCl (Zofran Inj) 4 mg IVP Q4H PRN PRN Reason: Nausea/Vomiting Last Admin: 01/12/17 06:30 Dose: 4 mg Oxycodone HCl (Oxycodone Immediate Release Tab) 10 mg PO Q6H PRN PRN Reason: Pain, severe (8-10) Last Admin: 01/17/17 09:12 Dose: 10 mg Pantoprazole Sodium (Protonix Ec Tab) 40 mg PO 0600 [facility] Last Admin: 01/17/17 05:16 Dose: 40 mg Tamsulosin HCl (Flomax) 0.4 mg PO DAILY [facility]OS[facility]IGU[facility] Last Admin: 01/17/17 09:12 Dose: 0.4 mg - Labs Labs: 01/17/17 07:00 01/17/17 07:00 PT 11.2 Seconds (9.9-11.8) 01/16/17 08:00 INR 1.04 (0.93-1.08) 01/16/17 08:00 APTT 28.9 Seconds (23.7-30.8) 01/16/17 08:00 Assessment and Plan - Assessment and Plan (Free Text) Assessment: ASSESSMENT: Nephrolithiasis, s/p stent placement, and removal UTI, (+) E coli Gastro hepatic lymph node, s/p BX, benign lymph tissue/fibroadipose nodule S/P EGD, reveal normal stomach &duodenum Elevated LFT, s/p abdominal US, (+) gallstone,? fatty liver, ? medication induced, improving, hep panel negative PLAN: trend LFT diet as tolerated continue PPI pain mgt. off antibiotics Seen and discussed with Dr. Devlin.
--- NOTE | 2017-01-17 14:57 | PN ---
DATE: 01/17/2017 SUBJECTIVE: The patient is afebrile. The pigtail stent was easily removed by pulling the string without incident. From urologic point of view the patient can be discharged. Followup in the office in several weeks. Hamzah Quigley MD
--- NOTE | 2017-01-17 19:38 | CP.PCM.DIS ---
Provider - Provider Date of Admission: 01/03/17 23:54 Attending physician: Hesham Jamison MD Time Spent in preparation of Discharge (in minutes): 45 Hospital Course - Lab Results Lab Results: Micro Results 01/13/17 22:00 Urine,Random Urine Culture - Final No Growth (<1,000 CFU/ML) 01/05/17 14:30 Blood Blood Culture - Final NO GROWTH AFTER 5 DAYS 01/05/17 14:30 Blood Gram Stain - Final TEST NOT PERFORMED 01/05/17 14:15 Blood Blood Culture - Final NO GROWTH AFTER 5 DAYS 01/05/17 14:15 Blood Gram Stain - Final TEST NOT PERFORMED 01/05/17 15:00 Urine,Clean Catch Urine Culture - Final No Growth (<1,000 CFU/ML) 01/04/17 00:05 Blood-Venous Blood Culture - Final Escherichia Coli 01/04/17 00:05 Blood-Venous Gram Stain - Final 01/04/17 01:30 Urine,Clean Catch Urine Culture - Final Escherichia Coli Most Recent Lab Values WBC 8.7 10^3/ul (4.5-11.0) 01/17/17 07:00 RBC 4.06 10^6/uL (3.5-6.1) 01/17/17 07:00 Hgb 11.1 g/dL (12.0-16.0) L 01/17/17 07:00 Hct 35.3 % (36.0-48.0) L 01/17/17 07:00 MCV 86.9 fl (80.0-105.0) 01/17/17 07:00 MCH 27.3 pg (25.0-35.0) 01/17/17 07:00 MCHC 31.4 g/dl (31.0-37.0) 01/17/17 07:00 RDW 14.6 % (11.5-14.5) H 01/17/17 07:00 Plt Count 284 10^3/uL (120.0-450.0) 01/17/17 07:00 MPV 10.1 fl (7.0-11.0) 01/17/17 07:00 Gran % 72.2 % (50.0-68.0) H 01/17/17 07:00 Lymph % (Auto) 17.7 % (22.0-35.0) L 01/17/17 07:00 [place] % (Auto) 7.9 % (1.0-6.0) H 01/17/17 07:00 Eos % (Auto) 1.7 % (1.5-5.0) 01/17/17 07:00 Baso % (Auto) 0.5 % (0.0-3.0) 01/17/17 07:00 Gran # 6.30 (1.4-6.5) 01/17/17 07:00 Lymph # 1.5 (1.2-3.4) 01/17/17 07:00 [place] # 0.7 (0.1-0.6) H 01/17/17 07:00 Eos # 0.2 (0.0-0.7) 01/17/17 07:00 Baso # 0.04 K/mm3 (0.0-2.0) 01/17/17 07:00 Neutrophils % (Manual) 92 % (50.0-70.0) H 01/04/17 06:00 Band Neutrophils % 4 % (0-2) H 01/04/17 06:00 Lymphocytes % (Manual) 2 % (22.0-35.0) L 01/04/17 06:00 Monocytes % (Manual) 2 % (1.0-6.0) 01/04/17 06:00 Platelet Evaluation Normal (NORMAL) 01/04/17 06:00 PT 11.2 Seconds (9.9-11.8) 01/16/17 08:00 INR 1.04 (0.93-1.08) 01/16/17 08:00 APTT 28.9 Seconds (23.7-30.8) 01/16/17 08:00 Sodium 137 mmol/L (132-148) 01/17/17 07:00 Potassium 4.2 mmol/L (3.6-5.0) 01/17/17 07:00 Chloride 98 mmol/L (98-107) 01/17/17 07:00 Carbon Dioxide 31 mmol/L (21-33) 01/17/17 07:00 Anion Gap 12 (10-20) 01/17/17 07:00 BUN 18 mg/dL (7-21) 01/17/17 07:00 Creatinine 0.8 mg/dL (0.5-1.4) 01/17/17 07:00 Est GFR ( Amer) > 60 01/17/17 07:00 Est GFR (Non-Af Amer) > 60 01/17/17 07:00 Random Glucose 102 mg/dL (70-110) 01/17/17 07:00 Calcium 9.1 mg/dL (8.4-10.5) 01/17/17 07:00 Phosphorus 3.0 mg/dL (2.5-4.5) 01/17/17 07:00 Magnesium 2.0 mg/dL (1.7-2.2) 01/17/17 07:00 Iron 68 ug/dL (45-180) 01/17/17 07:00 TIBC 360 ug/dL (265-497) 01/17/17 07:00 % Saturation 19 % (20-55) L 01/17/17 07:00 Transferrin 287.66 mg/dL (206-381) 01/17/17 07:00 Ferritin 204.0 ng/mL 01/16/17 07:00 Total Bilirubin 0.8 mg/dL (0.2-1.3) 01/17/17 07:00 AST 101 U/L (15-39) H 01/17/17 07:00 ALT 138 U/L (7-56) H 01/17/17 07:00 Alkaline Phosphatase 73 U/L (38-133) 01/17/17 07:00 Total Protein 7.1 g/dL (5.8-8.3) 01/17/17 07:00 Albumin 3.9 g/dL (3.0-4.8) 01/17/17 07:00 Globulin 3.2 gm/dL 01/17/17 07:00 Albumin/Globulin Ratio 1.2 (1.1-1.8) 01/17/17 07:00 Lipase 499 U/L (23-300) H 01/12/17 11:00 Procalcitonin 10.20 NG/ML (0.19-0.49) H 01/04/17 06:00 Urine Color Yellow (YELLOW) 01/13/17 22:00 Urine Appearance Clear (CLEAR) 01/13/17 22:00 Urine pH 6.5 (4.7-8.0) 01/13/17 22:00 Ur Specific [place] 1.010 (1.005-1.035) 01/13/17 22:00 Urine Protein Negative mg/dL (<30 mg/dL) 01/13/17 22:00 Urine Glucose (UA) Negative mg/dL (NEGATIVE) 01/13/17 22:00 Urine Ketones Negative mg/dL (NEGATIVE) 01/13/17 22:00 Urine Blood Moderate (NEGATIVE) H 01/13/17 22:00 Urine Nitrate Negative (NEGATIVE) 01/13/17 22:00 Urine Bilirubin Negative (NEGATIVE) 01/13/17 22:00 Urine Urobilinogen 0.2 E.U./dL (<1 E.U./dL) 01/13/17 22:00 Ur Leukocyte Esterase Small [place]/uL (NEGATIVE) H 01/13/17 22:00 Urine RBC 5 - 10 /hpf (0-2) 01/13/17 22:00 Urine WBC 5 - 10 /hpf (0-6) 01/13/17 22:00 Ur Epithelial Cells 3 - 4 /hpf (0-5) 01/13/17 22:00 Urine Bacteria Small (NEG) 01/13/17 22:00 Hepatitis A IgM Ab Negative (NEGATIVE) 01/16/17 07:00 Hep Bs Antigen Negative (NEGATIVE) 01/16/17 07:00 Hep B Core IgM Ab Negative (NEGATIVE) 01/16/17 07:00 Hepatitis C Antibody Negative (NEGATIVE) 01/16/17 07:00 Discharge Exam - Head Exam Head Exam: NORMAL INSPECTION Discharge Plan - Discharge Medications Prescriptions: Tamsulosin [Flomax] 0.4 mg PO DAILY #30 cap - Follow Up Plan Condition: FAIR Disposition: HOME/ ROUTINE Instructions: Renal Colic (DC), Renal Colic (GEN) Additional Instructions: Please continue home medications and take new medication as prescribed: -Flomax 0.4mg po daily Disp#30 Patient recommended to take Motrin 400mg po q6 prn over the counter for pain management and encouraged to ambbulate. 1. Please follow up with Dr. Jamison as an outpatient 2. Please follow up out patient with a Back Tender regarding your gastro- hepatic ligament. The doctor you saw in the hospital is Dr. Devlin 3. Please follow any instructions from your urologist, Dr. Keene, regarding postop care after stent removal If symptoms persist or worsen patient to visit ER immediately. Instructions discussed in detail with patient who understands and agrees. Referrals: Watson Keene MD [Staff Provider] -
== END 2017-01-17 16:12 | disposition home or self-care (01) | DRG 854 ==
LOC: ED 20:28 → ERH 23:54 → 3RSO 01-04 01:44
PROVIDERS: ADMIT Internal Medicine; ATTEND Internal Medicine
PROC: 0T778DZ Dilation of Left Ureter with Intraluminal Device, Via Natural or Artificial Opening Endoscopic (ICD-10-PCS; 2017-01-05)
PROC: 07BC3ZX Excision of Pelvis Lymphatic, Percutaneous Approach, Diagnostic (ICD-10-PCS; 2017-01-08)
PROC: 0DJ08ZZ Inspection of Upper Intestinal Tract, Via Natural or Artificial Opening Endoscopic (ICD-10-PCS; 2017-01-14)
PROC: 0T778DZ Dilation of Left Ureter with Intraluminal Device, Via Natural or Artificial Opening Endoscopic (ICD-10-PCS; 2017-01-16)
PROC: 0TC78ZZ Extirpation of Matter from Left Ureter, Via Natural or Artificial Opening Endoscopic (ICD-10-PCS; principal; 2017-01-16 12:30)
DX: A41.51 Sepsis due to Escherichia coli [E. coli] (principal); N13.6 Pyonephrosis; N30.90 Cystitis, unspecified without hematuria; I10 Essential (primary) hypertension; K80.20 Calculus of gallbladder without cholecystitis without obstruction; Z16.24 Resistance to multiple antibiotics; R59.0 Localized enlarged lymph nodes; L29.8 Other pruritus; Z96.651 Presence of right artificial knee joint